=== PATIENT | female | born 1930 | race Caucasian/White ===

== ENCOUNTER 2017-02-24 12:59 | Emergency (ER) | payer OTHER ==
[~2017-02-24] VITALS: Ht 152.4 cm; Wt 52.0 kg
[~2017-02-24 12:59] MED LIST: ALPR0.25 PO; ATEN-102 PO; CENTCHW3 PO; GABA300C3 PO; HYDR25TA35 PO; OMEP20TA PO; VITA-13 PO
[2017-02-24 13:18] VITALS: BP 172/99; PULSE 65; RESP 16; TEMP 97.5; O2SAT 98
[2017-02-24] MEDS ORDERED: BIOT1000 PO (13:43)
[2017-02-24] MEDS ORDERED: ATEN50TA PO (13:43)
[2017-02-24] MEDS ORDERED: KRIL1000 PO (13:43)
[2017-02-24] MEDS ORDERED: HYDR-3801 PO (13:43)
[2017-02-24] MEDS ORDERED: CENTCHW3 (13:43)
[2017-02-24] MEDS ORDERED: UNIS25TA3 (13:43)
[2017-02-24] MEDS ORDERED: GABA300C5 PO (13:43)
[2017-02-24] MEDS ORDERED: ERGO2000 PO (13:43)
[2017-02-24] MEDS ORDERED: HYDR-3516 PO (13:43)
[2017-02-24] MEDS ORDERED: OMEP20TA PO (13:43)
[2017-02-24] MEDS ORDERED: ALPR0.25 PO (13:43)
--- NOTE | 2017-02-24 13:56 | PD ---
HPI Chief Complaint: Abdominal Pain Time Seen by Provider: 13:47 Travel History International Travel<30 days: No Contact w/Intl Traveler<30days: No Traveled to known affect area: No History of Present Illness HPI This is an 86-year-old female who presents to the emergency department with abdominal pain that's been present for a week and a half, constant, moderate severity affecting her lower abdomen. She says she's been constipated but she used an enema this morning and I gave her some relief. She feels nauseous but hasn't thrown up. She denies any fevers or chills. She denies any abdominal surgeries in the past. PFSH Past Medical History Anxiety: Yes Diminished Hearing: No GERD: Yes Hypertension: Yes ?: Not Past Surgical History Joint Replacement: Yes (bilateral hips) Social History Alcohol Use: Yes (wine nightly) Tobacco Use: No Substance Use: No Allergies-Medications (Allergen,Severity, Reaction): Coded Allergies: Nifedipine (Unverified Allergy, Severe, Swelling, 02/24/17) Reported Meds & Prescriptions Reported Meds & Active Scripts Active Ranitidine (Ranitidine HCl) 150 Mg Tab 150 Mg PO BID Reported Unisom Sleep Aid (Doxylamine Succinate) 25 Mg Tablet Centrum Silver (Multiple Vitamins W/ Minerals) 1 Chw Chw Vitamin D2 (Ergocalciferol) 2,000 Unit Tab 2,000 Units PO DAILY Biotin 1,000 Mcg Tab 1,000 Mg PO DAILY Krill Oil 1,000 Mg Cap 1,000 Mg PO DAILY Omeprazole 20 Mg Tab 20 Mg PO DAILY Gabapentin 300 Mg Cap 300 Mg PO HS Atenolol 50 Mg Tab 50 Mg PO DAILY Hydralazine (Hydralazine HCl) 100 Mg Tab 50 Mg PO TID Take with meals Alprazolam 0.25 Mg Tab 0.25 Mg PO BID Hydrocodone-Acetaminophen 5-325 mg Tab 1 Tab PO BID Review of Systems Except as stated in HPI: all other systems reviewed are Neg Physical Exam Narrative GENERAL:Well appearing, no acute distress SKIN: Focused skin assessment warm and dry. HEAD: Atraumatic. Normocephalic. EYES: Pupils equal and round. No injection or drainage. ENT: Moist mucous membranes NECK: Trachea midline. CARDIOVASCULAR: Regular rate and rhythm. No murmur appreciated. RESPIRATORY: Clear to auscultation. Breath sounds equal bilaterally. GASTROINTESTINAL: Abdomen soft, tender to palpation in the left lower quadrant with no rebound/guarding MUSCULOSKELETAL: No obvious deformities. NEUROLOGICAL: Awake and alert. No obvious cranial nerve deficits. Moving all extremities. PSYCHIATRIC: Appropriate mood and affect; insight and judgment normal. Data Data Last Documented VS Vital Signs Date Time Temp Pulse Resp B/P Pulse Ox O2 Delivery O2 Flow Rate FiO2 02/24/17 14:18 98 Room Air 02/24/17 13:18 97.5 65 16 172/99 Orders Complete Blood Count With Diff (02/24/17 13:52) Comprehensive Metabolic Panel (02/24/17 13:52) Lipase (02/24/17 13:52) Lactic Acid (02/24/17 13:52) Urinalysis - C+S If Indicated (02/24/17 13:52) Ct Abd/Pel W Iv Contrast(Rout) (02/24/17 13:52) Iv Access Insert/Monitor (02/24/17 13:52) Ecg Monitoring (02/24/17 13:52) Oximetry (02/24/17 13:52) Sodium Chloride 0.9% Flush (Ns Flush) (02/24/17 14:00) Iohexol 350 Inj (Omnipaque 350 Inj) (02/24/17 15:23) Labs Laboratory Tests Test 02/24/17 14:15 White Blood Count 9.3 TH/MM3 Red Blood Count 4.49 MIL/MM3 Hemoglobin 13.7 GM/DL Hematocrit 41.4 % Mean Corpuscular Volume 92.2 FL Mean Corpuscular Hemoglobin 30.4 PG Mean Corpuscular Hemoglobin 33.0 % Concent Red Cell Distribution Width 12.5 % Platelet Count 352 TH/MM3 Mean Platelet Volume 7.5 FL Neutrophils (%) (Auto) 82.2 % Lymphocytes (%) (Auto) 12.9 % Monocytes (%) (Auto) 3.3 % Eosinophils (%) (Auto) 0.6 % Basophils (%) (Auto) 1.0 % Neutrophils # (Auto) 7.6 TH/MM3 Lymphocytes # (Auto) 1.2 TH/MM3 Monocytes # (Auto) 0.3 TH/MM3 Eosinophils # (Auto) 0.1 TH/MM3 Basophils # (Auto) 0.1 TH/MM3 CBC Comment DIFF FINAL Differential Comment Urine Collection Type CATH Urine Color YELLOW Urine Turbidity CLEAR Urine pH 6.5 Urine Specific [place] 1.017 Urine Protein TRACE mg/dL Urine Glucose (UA) NEG mg/dL Urine Ketones TRACE mg/dL Urine Occult Blood NEG Urine Nitrite NEG Urine Bilirubin NEG Urine Leukocyte Esterase NEG Urine RBC 0-3 /hpf Urine WBC 0-2 /hpf Urine Amorphous Sediment FEW Urine Hyaline Casts 10-14 /lpf Microscopic Urinalysis Comment CATH-CULT NOT IND Urine Collection Time 14:15 Sodium Level 136 MEQ/L Potassium Level 3.8 MEQ/L Chloride Level 100 MEQ/L Carbon Dioxide Level 24.3 MEQ/L Anion Gap 12 MEQ/L Blood Urea Nitrogen 13 MG/DL Creatinine 0.92 MG/DL Estimat Glomerular Filtration 58 ML/MIN Rate Random Glucose 110 MG/DL Lactic Acid Level 1.1 mmol/L Calcium Level 10.4 MG/DL Total Bilirubin 0.5 MG/DL Aspartate Amino Transf 22 U/L (AST/SGOT) Alanine Aminotransferase 21 U/L (ALT/SGPT) Alkaline Phosphatase 70 U/L Total Protein 6.9 GM/DL Albumin 3.7 GM/DL Lipase 135 U/L [facility] Medical Decision Making Medical Screen Exam Complete: Yes Emergency Medical Condition: Yes Interpretation(s) Afebrile, no tachycardia, hypertensive No leukocytosis Electrolytes are reassuring Lactic acid is 1.1 Lipase is 135 Urinalysis is negative for infection Last 24 hours Impressions Abdomen/Pelvis CT 02/24/17 1352 Signed Impressions: Service Date/Time: , February 24, 2017 15:06 - CONCLUSION: 1. No evidence of acute process 2. Bilateral simple renal cysts 3. Bilateral hip replacements 4. Degenerative changes of the lumbar spine. Hector Roman MD Differential Diagnosis Diverticulitis, colitis, urinary tract infection, peptic ulcer disease, pancreatitis, cholelithiasis, cholecystitis, mesenteric ischemia Narrative Course This is an 86-year-old female who presents to the emergency department with abdominal discomfort that's been going on for a week and a half. She is tender mostly in the mid abdomen and lower abdomen. Labs were obtained which were reassuring, urinalysis is negative for infection, and CT abdomen and pelvis is negative for acute surgical process. I suspect the patient's symptoms may be related to constipation. She seems to of gotten some relief after an enema this morning. I advised that she continue to take MiraLAX. Also possible that she has peptic ulcer disease. She'll be started on Zantac. 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 If she develops worsening symptoms like vomiting or fever she should return to the emergency department. Diagnosis Primary Impression: Abdominal pain Qualified Code: R10.9 - Abdominal pain, unspecified location Referrals: Mariza Bender MD Patient Instructions: General Instructions Additional Instructions: If you develop severe or worsening abdominal pain, fever>100.4, persistent vomiting or inability to eat or drink return to the emergency department immediately. Follow up with your primary care physician in 1-2 days for a check-up. Med/Other Pt SpecificInfo: Prescription(s) given Scripts Polyethylene Glycol 3350 Powder (Miralax Powder)17 Gm Powd17 Gm PO DAILY #1 CAN Ref 0 Mix and dissolve one measuring cap-ful (17 grams) in water or juice. Prov:Tatianna Guerrero MD 02/24/17 Ranitidine 150 Mg Ocd616 Mg PO BID #60 TAB Ref 0 Prov:Tatianna Guerrero MD 02/24/17 Disposition: 01 DISCHARGE HOME Condition: Stable Tatianna Guerrero MD Feb 24, 2017 13:56
[2017-02-24] MEDS ORDERED: SODIUM CHLORIDE 0.9% FLUSH 10 ML FLUSH IV FLUSH PRN (14:00)
[2017-02-24 14:18] VITALS: O2SAT 98
[2017-02-24 14:23] LABS: BLOOD, URINE NEG (NEG); GLUCOSE,URINE NEG (NEG); KETONE, URINE TRACE mg/dL (NEG); NITRITE,URINE NEG (NEG); PH, URINE 6.5 (5.0-8.5)
[2017-02-24 14:27] LABS: AUTOMATED NEUTROPHIL # 7.6 TH/MM3 (1.8-7.7); BASOPHIL # 0.1 TH/MM3 (0-0.2); EOSINOPHIL # 0.1 TH/MM3 (0-0.4); EOSINOPHIL % 0.6 % (0.0-4.0); HEMATOCRIT 41.4 % (35.0-46.0); HEMO FLAGS DIFF FINAL; LYMPH % 12.9 % (9.0-44.0); LYMPHOCYTE # 1.2 TH/MM3 (1.0-4.8); MEAN CELL VOLUME 92.2 FL (80.0-100.0); MEAN CORPUSCULAR HEMOGLOBIN 30.4 PG (27.0-34.0); MONO % 3.3 % (0.0-8.0); NEUT % 82.2 % (16.0-70.0); PLATELET COUNT 352 TH/MM3 (150-450); RED BLOOD COUNT 4.49 MIL/MM3 (4.00-5.30); RED CELL DISTRIBUTION WIDTH 12.5 % (11.6-17.2); WHITE BLOOD COUNT 9.3 TH/MM3 (4.0-11.0)
[2017-02-24 14:34] LABS: METHOD OF COLLECTION CATH; URINE COLOR YELLOW (YELLW/STRAW)
[2017-02-24 14:35] LABS: COMMENT (UR) CATH-CULT NOT IND; CULTURE IF INDICATED CATH CULTURE NOT IND; RBC, URINE 0-3 /hpf (0-3); WBC, URINE 0-2 /hpf (0-5)
[2017-02-24 14:41] LABS: CHLORIDE 100 MEQ/L (98-107); POTASSIUM 3.8 MEQ/L (3.5-5.1); SODIUM (NA) 136 MEQ/L (136-145)
[2017-02-24 14:45] LABS: ANION GAP 12 MEQ/L (5-15); BICARBONATE 24.3 MEQ/L (21.0-32.0); BLOOD UREA NITROGEN 13 MG/DL (7-18)
[2017-02-24 14:48] LABS: ALT (GPT) 21 U/L (10-53); AST (GOT) 22 U/L (15-37); GLOMERULAR FILTRATION RATE 58 ML/MIN (>89)
[2017-02-24 14:49] LABS: TOTAL BILIRUBIN ADULT 0.5 MG/DL (0.2-1.0)
[2017-02-24 14:51] LABS: ALKALINE PHOSPHATASE 70 U/L (45-117)
[2017-02-24] MEDS ORDERED: IOHEXOL 350 MG/ML 10 ML VIAL (for RAD DIAG) IV ONE (15:23)
--- NOTE | 2017-02-24 15:37 | RADRPT ---
EXAM DATE/TIME: 02/24/2017 15:06 [facility] COMPARISON: No previous studies available for comparison. INDICATIONS : Lower abdominal pain for 2 weeks IV CONTRAST: 94 cc Omnipaque 350 (iohexol) IV ORAL CONTRAST: No oral contrast ingested. RADIATION DOSE: 6.28 CTDIvol (mGy) MEDICAL HISTORY : Hypertension. Gastroesophageal reflux disease. SURGICAL HISTORY : None. ENCOUNTER: Initial ACUITY: 3 weeks PAIN SCALE: 10/10 LOCATION: lower quadrant abdomen TECHNIQUE: Volumetric scanning of the abdomen and pelvis was performed. Using automated exposure control and ad justment of the mA and/or kV according to patient size, radiation dose was kept as low as reasonably achievable to obtain optimal diagnostic quality images. DICOM format image data is available electro nically for review and comparison. FINDINGS: LOWER LUNGS: The visualized lower lungs are clear. LIVER: Homogeneous density without lesion. There is no dilation of the biliary tree. No calcified gallston es. SPLEEN: Normal size without lesion. PANCREAS: Within normal limits. KIDNEYS: Bilateral simple renal cysts are identified. Normal in size and shape. There is no mass, stone or hy dronephrosis. ADRENAL GLANDS: Within normal limits. VASCULAR: There is no aortic aneurysm. BOWEL/MESENTERY: The stomach, small bowel, and colon demonstrate no acute abnormality. There is no free intraperitone al air or fluid. ABDOMINAL WALL: Within normal limits. RETROPERITONEUM: There is no lymphadenopathy. BLADDER: No wall thickening or mass. REPRODUCTIVE: Within normal limits. INGUINAL: There is no lymphadenopathy or hernia. MUSCULOSKELETAL: Bilateral hip replacements. CONCLUSION: 1. No evidence of acute process 2. Bilateral simple renal cysts 3. Bilateral hip replacements 4. Degenerative changes of the lumbar spine. Hector Roman MD on February 24, 2017 at 15:29 Board Certified Radiologist. This report was verified electronically.
[2017-02-24] MEDS ORDERED: RANI150T PO (15:54)
[2017-02-24] MEDS ORDERED: MIRA3350 PO (15:59)
== END 2017-02-24 16:20 | disposition home or self-care (01) ==
LOC: PHED 12:59
DX: R10.9 Unspecified abdominal pain (principal); K21.9 Gastro-esophageal reflux disease without esophagitis; I10 Essential (primary) hypertension
CPT/HCPCS: 74177; 80053; 81001; 83605; 83690; 85025; 99285; Q9967

== ENCOUNTER 2017-03-25 09:41 | Emergency (ER) | payer OTHER ==
[~2017-03-25 09:41] MED LIST changes: -ATEN-102 PO; +ATEN50TA PO; +BIOT1000 PO; +CENTCHW3; -CENTCHW3 PO; +ERGO2000 PO; -GABA300C3 PO; +GABA300C5 PO; +HYDR-3516 PO; +HYDR-3801 PO; -HYDR25TA35 PO; +KRIL1000 PO; +MIRA3350 PO; +RANI150T PO; +UNIS25TA3; -VITA-13 PO
[2017-03-25 09:50] VITALS: BP 130/74; PULSE 61; RESP 20; TEMP 97.6; O2SAT 97
[2017-03-25] MEDS ORDERED: SODIUM CHLOR 0.9% 1000 ML INJ 1,000 ML IV SCH (10:02)
[2017-03-25] MEDS ORDERED: DIATRIZOATE MEGLUM/DIATRIZOATE SOD 9 ML CUP ONE (10:07)
--- NOTE | 2017-03-25 10:10 | PD ---
HPI Chief Complaint: GI Complaint Time Seen by Provider: 09:55 Travel History International Travel<30 days: No Contact w/Intl Traveler<30days: No Traveled to known affect area: No History of Present Illness HPI 86-year-old female here with complaint of abdominal pain. For the last 2 days patient has had primarily periumbilical abdominal pain. She describes this as crampy. It radiates slightly into the epigastrium. She notes associated nausea , vomiting. States she has not been able to keep anything down for the last 2 days, vomiting almost immediately after oral intake. Notes associated worsening. Periumbilical abdominal pain a proximal eye 30 minutes after eating. Patient denies any history of GERD, pancreatitis or hepatobiliary pathology. However she does take an oral antacid and has been on this for some times. Patient notes associated constipation, believes that this is due to poor oral intake. Is concerned she may be dehydrated. Patient was seen here approximately one month ago with similar symptoms and states that this is a similar pain. At that time she had laboratory workup and CT of the abdomen and pelvis that was unremarkable. She does note a slight amount of dysuria. PFSH Past Medical History Anxiety: Yes Diminished Hearing: No GERD: Yes Hypertension: Yes Past Surgical History Joint Replacement: Yes (bilateral hips) Social History Alcohol Use: Yes (wine nightly) Tobacco Use: No Substance Use: No Allergies-Medications (Allergen,Severity, Reaction): Coded Allergies: Nifedipine (Unverified Allergy, Severe, Swelling, 03/25/17) Reported Meds & Prescriptions Reported Meds & Active Scripts Active Ranitidine (Ranitidine HCl) 150 Mg Tab 150 Mg PO BID Reported Unisom Sleep Aid (Doxylamine Succinate) 25 Mg Tablet Centrum Silver (Multiple Vitamins W/ Minerals) 1 Chw Chw Vitamin D2 (Ergocalciferol) 2,000 Unit Tab 2,000 Units PO DAILY Biotin 1,000 Mcg Tab 1,000 Mg PO DAILY Krill Oil 1,000 Mg Cap 1,000 Mg PO DAILY Omeprazole 20 Mg Tab 20 Mg PO DAILY Gabapentin 300 Mg Cap 300 Mg PO HS Atenolol 50 Mg Tab 50 Mg PO DAILY Hydralazine (Hydralazine HCl) 100 Mg Tab 50 Mg PO BID Take with meals Alprazolam 0.25 Mg Tab 0.25 Mg PO DAILY Hydrocodone-Acetaminophen 5-325 mg Tab 1 Tab PO BID Review of Systems Except as stated in HPI: all other systems reviewed are Neg Physical Exam Narrative GENERAL: Nauseous appearing elderly female in no acute distress SKIN: Focused skin assessment warm/dry. HEAD: Normocephalic. EYES: No scleral icterus. No injection or drainage. ENT: Mucous membranes pink and moist. NECK: Supple CARDIOVASCULAR: Regular rate and rhythm. No murmur appreciated. RESPIRATORY: No accessory muscle use. Clear to auscultation. Breath sounds equal bilaterally. GASTROINTESTINAL: Abdomen soft, periumbilical and mild epigastric abdominal tenderness to palpation without rebound or guarding. No hepatosplenomegaly. No CVA tenderness. MUSCULOSKELETAL: Normal gait NEUROLOGICAL: Awake and alert. Normal speech. PSYCHIATRIC: Appropriate mood and affect; insight and judgment normal. Data Data Last Documented VS Vital Signs Date Time Temp Pulse Resp B/P Pulse Ox O2 Delivery O2 Flow Rate FiO2 03/25/17 10:24 98 Room Air 03/25/17 09:50 97.6 61 20 130/74 Orders Complete Blood Count With Diff (03/25/17 10:02) Comprehensive Metabolic Panel (03/25/17 10:02) Lipase (03/25/17 10:02) Urinalysis - C+S If Indicated (03/25/17 10:02) Ct Abd/Pel W Iv Contrast(Rout) (03/25/17 10:02) Iv Access Insert/Monitor (03/25/17 10:02) Ecg Monitoring (03/25/17 10:02) Oximetry (03/25/17 10:02) Morphine Inj (Morphine Inj) (03/25/17 10:15) Ondansetron Inj (Zofran Inj) (03/25/17 10:15) Sodium Chlor 0.9% 1000 Ml Inj (Ns 1000 M (03/25/17 10:02) Sodium Chloride 0.9% Flush (Ns Flush) (03/25/17 10:15) Diatrizoate Liq ( Gastroview Liq) (03/25/17 10:07) Oral Contrast - Adult (03/25/17 10:12) Iohexol 350 Inj (Omnipaque 350 Inj) (03/25/17 12:09) Potassium Chloride (Kcl) (03/25/17 12:30) Labs Laboratory Tests Test 03/25/17 03/25/17 10:12 11:26 White Blood Count 6.6 TH/MM3 Red Blood Count 4.68 MIL/MM3 Hemoglobin 14.2 GM/DL Hematocrit 42.6 % Mean Corpuscular Volume 91.1 FL Mean Corpuscular Hemoglobin 30.3 PG Mean Corpuscular Hemoglobin 33.2 % Concent Red Cell Distribution Width 12.2 % Platelet Count 321 TH/MM3 Mean Platelet Volume 7.5 FL Neutrophils (%) (Auto) 69.3 % Lymphocytes (%) (Auto) 21.4 % Monocytes (%) (Auto) 8.0 % Eosinophils (%) (Auto) 0.9 % Basophils (%) (Auto) 0.4 % Neutrophils # (Auto) 4.6 TH/MM3 Lymphocytes # (Auto) 1.4 TH/MM3 Monocytes # (Auto) 0.5 TH/MM3 Eosinophils # (Auto) 0.1 TH/MM3 Basophils # (Auto) 0.0 TH/MM3 CBC Comment DIFF FINAL Differential Comment Sodium Level 134 MEQ/L Potassium Level 3.3 MEQ/L Chloride Level 97 MEQ/L Carbon Dioxide Level 28.2 MEQ/L Anion Gap 9 MEQ/L Blood Urea Nitrogen 10 MG/DL Creatinine 0.82 MG/DL Estimat Glomerular Filtration 66 ML/MIN Rate Random Glucose 96 MG/DL Calcium Level 10.2 MG/DL Total Bilirubin 0.6 MG/DL Aspartate Amino Transf 20 U/L (AST/SGOT) Alanine Aminotransferase 21 U/L (ALT/SGPT) Alkaline Phosphatase 79 U/L Total Protein 7.4 GM/DL Albumin 4.0 GM/DL Lipase 107 U/L Urine Collection Type CLEAN CATCH Urine Color YELLOW Urine Turbidity CLEAR Urine pH 6.5 Urine Specific House 1.006 Urine Protein TRACE mg/dL Urine Glucose (UA) NEG mg/dL Urine Ketones NEG mg/dL Urine Occult Blood NEG Urine Nitrite NEG Urine Bilirubin NEG Urine Leukocyte Esterase NEG Urine WBC 0-2 /hpf Urine Squamous Epithelial 0-5 /hpf Cells Microscopic Urinalysis Comment CULT NOT INDICATED Urine Collection Time 11:26 [facility] Medical Decision Making Medical Screen Exam Complete: Yes Emergency Medical Condition: Yes Medical Record Reviewed: Yes Differential Diagnosis 86-year-old female here with 2 days. Periumbilical and epigastric abdominal pain associated nausea and vomiting. Differential includes gastritis, pancreatitis, hepatobiliary pathology, peptic ulcer disease, bowel obstruction, UTI. Her abdominal examination is benign making peritoneal pathology less likely though on the differential. Narrative Course Patient placed on monitor, IV established and blood obtained. Patient given 1 L normal saline bolus, 4 mg morphine, 4 mg Zofran. CBC, CMP, lipase and urinalysis obtained and notable only for potassium 3.3, replaced orally. When she was imaged one month ago she did not have any oral contrast. Therefore CT abdomen and pelvis with both IV and oral contrast was obtained and showed stable chronic changes, nothing acute. Tolerated oral challenge and will be discharged home. Diagnosis Primary Impression: Epigastric abdominal pain Additional Impression: Nausea and vomiting Qualified Code: R11.2 - Non-intractable vomiting with nausea, unspecified vomiting type Referrals: Primary Care Physician as needed Additional Instructions: Increase omeprazole from 20-40 mg daily. Zofran as needed for nausea and vomiting. Med/Other Pt SpecificInfo: Prescription(s) given, Existing Med Changed Scripts Ondansetron Odt (Zofran Odt)8 Mg Tab8 Mg SL Q8H PRN (NAUSEA OR VOMITING) #10 TAB Ref 0 Prov:Ashlie Barrera MD 03/25/17 Omeprazole 40 Mg Cap40 Mg PO DAILY #30 CAP Ref 0 Prov:Ashlie Barrera MD 03/25/17 Disposition: 01 DISCHARGE HOME Condition: Stable Ashlie Barrera MD Mar 25, 2017 10:10
[2017-03-25] MEDS ORDERED: MORPHINE SULFATE 4 MG/ML INJ IV PUSH ONE (10:15)
[2017-03-25] MEDS ORDERED: SODIUM CHLORIDE 0.9% FLUSH 10 ML FLUSH IV FLUSH PRN (10:15)
[2017-03-25] MEDS ORDERED: ONDANSETRON HCL 4 MG/2 ML VIAL IVP ONE (10:15)
[2017-03-25 10:24] VITALS: O2SAT 98
[2017-03-25 10:29] LABS: AUTOMATED NEUTROPHIL # 4.6 TH/MM3 (1.8-7.7); BASOPHIL % 0.4 % (0.0-2.0); EOSINOPHIL # 0.1 TH/MM3 (0-0.4); EOSINOPHIL % 0.9 % (0.0-4.0); HEMATOCRIT 42.6 % (35.0-46.0); HEMO FLAGS DIFF FINAL; LYMPH % 21.4 % (9.0-44.0); LYMPHOCYTE # 1.4 TH/MM3 (1.0-4.8); MEAN CELL VOLUME 91.1 FL (80.0-100.0); MEAN CORPUSCULAR HEMOGLOBIN 30.3 PG (27.0-34.0); MEAN CORPUSCULAR HGB CONC 33.2 % (32.0-36.0); NEUT % 69.3 % (16.0-70.0); PLATELET COUNT 321 TH/MM3 (150-450); RED BLOOD COUNT 4.68 MIL/MM3 (4.00-5.30); RED CELL DISTRIBUTION WIDTH 12.2 % (11.6-17.2); WHITE BLOOD COUNT 6.6 TH/MM3 (4.0-11.0)
[2017-03-25 10:39] LABS: CHLORIDE 97 MEQ/L (98-107); POTASSIUM 3.3 MEQ/L (3.5-5.1); SODIUM (NA) 134 MEQ/L (136-145)
[2017-03-25 10:43] LABS: ANION GAP 9 MEQ/L (5-15); BICARBONATE 28.2 MEQ/L (21.0-32.0); BLOOD UREA NITROGEN 10 MG/DL (7-18)
[2017-03-25 10:46] LABS: ALT (GPT) 21 U/L (10-53); AST (GOT) 20 U/L (15-37); GLOMERULAR FILTRATION RATE 66 ML/MIN (>89)
[2017-03-25 10:47] LABS: TOTAL BILIRUBIN ADULT 0.6 MG/DL (0.2-1.0)
[2017-03-25 10:48] LABS: ALKALINE PHOSPHATASE 79 U/L (45-117)
[2017-03-25 11:35] LABS: BLOOD, URINE NEG (NEG); GLUCOSE,URINE NEG (NEG); KETONE, URINE NEG (NEG); NITRITE,URINE NEG (NEG); PH, URINE 6.5 (5.0-8.5)
[2017-03-25 12:05] LABS: COMMENT (UR) CULT NOT INDICATED; CULTURE IF INDICATED CULT NOT INDICATED; METHOD OF COLLECTION CLEAN CATCH; SQUAMOUS EPITHELIAL CELL URINE 0-5 /hpf (0-5); URINE COLOR YELLOW (YELLW/STRAW); WBC, URINE 0-2 /hpf (0-5)
[2017-03-25] MEDS ORDERED: IOHEXOL 350 MG/ML 10 ML VIAL (for RAD DIAG) IV ONE (12:09)
--- NOTE | 2017-03-25 12:20 | RADRPT ---
EXAM DATE/TIME: 03/25/2017 11:52 [facility] COMPARISON: CT ABDOMEN & PELVIS W CONTRAST, February 24, 2017, 15:06. INDICATIONS : Periumbilical pain, nausea and vomiting x 3 days. IV CONTRAST: 85 cc Omnipaque 350 (iohexol) IV ORAL CONTRAST: Partial prescribed oral contrast ingested. RADIATION DOSE: 8.06 CTDIvol (mGy) MEDICAL HISTORY : Gastroesophageal reflux disease. Hypertension. SURGICAL HISTORY : Bilateral hip replacement. Pain pump. ENCOUNTER: Initial ACUITY: 3 days PAIN SCALE: 10/10 LOCATION: Periumbilical TECHNIQUE: Volumetric scanning of the abdomen and pelvis was performed. Using automated exposure control and ad justment of the mA and/or kV according to patient size, radiation dose was kept as low as reasonably achievable to obtain optimal diagnostic quality images. DICOM format image data is available electro nically for review and comparison. FINDINGS: CT Abdomen: The liver, spleen, pancreas, adrenals are unremarkable. There is no evidence for any appr eciable pathological adenopathy, free fluid, or bowel obstruction. There are simple cysts in the kidn eys the largest on the left measures 2.1 cm in size and not changed. Chronic vascular calcifications are present involving the aorta, iliac arteries without any significant stenosis or aneurysmal dilata tions for technique. CT pelvis: There is no evidence for mass, abscess formation, or any significant adenopathy within the pelvis. Lumbar scoliosis and degenerative changes of the spine and bilateral total hip arthroplastie s have not changed. CONCLUSION: Stable chronic and benign changes not changed. Billie Bains MD on March 25, 2017 at 12:15 Board Certified Radiologist. This report was verified electronically.
[2017-03-25] MEDS ORDERED: POTASSIUM CHLORIDE 20 MEQ CONTROLLED RELEASE TAB PO ONE (12:30)
[2017-03-25] MEDS ORDERED: OMEP40CA2 PO (13:14)
[2017-03-25] MEDS ORDERED: ZOFR8TAB4 SL (13:15)
[2017-03-25 13:30] VITALS: BP 210/88
== END 2017-03-25 13:38 | disposition home or self-care (01) ==
LOC: PHED 09:41
DX: R10.13 Epigastric pain (principal); R11.2 Nausea with vomiting, unspecified; R10.33 Periumbilical pain; K59.00 Constipation, unspecified; R30.0 Dysuria; I10 Essential (primary) hypertension; Z86.59 Personal history of other mental and behavioral disorders; Z87.19 Personal history of other diseases of the digestive system
CPT/HCPCS: 74177; 80053; 81001; 83690; 85025; 96361; 96374; 96375; 99285; J2270; J2405; J7030; Q9963; Q9967

== ENCOUNTER 2017-05-04 10:12 | Emergency (ER) | payer OTHER ==
[~2017-05-04] VITALS: Ht 152.4 cm; Wt 52.0 kg
[~2017-05-04 10:12] MED LIST changes: -MIRA3350 PO; +OMEP40CA2 PO; +ZOFR8TAB4 SL
[2017-05-04 10:18] VITALS: BP 116/62; PULSE 65; RESP 16; TEMP 97.9; O2SAT 97
--- NOTE | 2017-05-04 14:46 | PD ---
HPI Chief Complaint: Fall Time Seen by Provider: 10:30 Travel History International Travel<30 days: No Contact w/Intl Traveler<30days: No Traveled to known affect area: No History of Present Illness HPI This is an 86-year-old male who female who has a history of chronic low back pain and has a spinal stimulator who presents to the emergency department having had a fall 5 days ago reporting low back pain, constant, severe, worse with walking, improved with rest. She denies any numbness or weakness but she says she's having difficulty with urinary incontinence and she says she doesn't make it to the bathroom that she wets herself. She also feels like she can't have a bowel movement but that's mostly secondary to pain. She did not hit her head and denies any other injuries. [facility] Past Medical History Anxiety: Yes Diminished Hearing: No GERD: Yes Hypertension: Yes Past Surgical History Joint Replacement: Yes (bilateral hips) Social History Alcohol Use: Yes (wine nightly) Tobacco Use: No Substance Use: No Allergies-Medications (Allergen,Severity, Reaction): Coded Allergies: nifedipine (Unverified Allergy, Severe, Swelling, 05/04/17) Reported Meds & Prescriptions Reported Meds & Active Scripts Active Ranitidine (Ranitidine HCl) 150 Mg Tab 150 Mg PO BID Reported Centrum Silver (Multiple Vitamins W/ Minerals) 1 Chw Chw Vitamin D2 (Ergocalciferol) 2,000 Unit Tab 2,000 Units PO DAILY Biotin 1,000 Mcg Tab 1,000 Mg PO DAILY Krill Oil 1,000 Mg Cap 1,000 Mg PO DAILY Review of Systems Except as stated in HPI: all other systems reviewed are Neg Physical Exam Narrative GENERAL:Well appearing, no acute distress SKIN: Focused skin assessment warm and dry. HEAD: Atraumatic. Normocephalic. EYES: Pupils equal and round. No injection or drainage. ENT: Moist mucous membranes NECK: Trachea midline. CARDIOVASCULAR: Regular rate and rhythm. No murmur appreciated. RESPIRATORY: Clear to auscultation. Breath sounds equal bilaterally. GASTROINTESTINAL: Abdomen soft, non-tender, nondistended. Normal rectal tone. MUSCULOSKELETAL: Focally tender to palpation over the lower lumbar spine. NEUROLOGICAL: Awake and alert. No obvious cranial nerve deficits. 5 out of 5 strength in the bilateral lower extremities. PSYCHIATRIC: Appropriate mood and affect; insight and judgment normal. Data Data Last Documented VS Vital Signs Date Time Temp Pulse Resp B/P (MAP) Pulse Ox O2 Delivery O2 Flow Rate FiO2 05/04/17 10:18 97.9 65 16 116/62 (80) 97 Orders Orders Mri L Spine W/O Contrast (05/04/17 ) MDM Medical Decision Making Medical Screen Exam Complete: Yes Emergency Medical Condition: Yes Interpretation(s) Afebrile, no tachycardia, normotensive MRI: Spinal stenosis with neural impingement at L1-L2 and L3-L4 Differential Diagnosis Compression fracture, cauda equina syndrome, contusion Narrative Course This is a 86-year-old female who presents to the emergency department having had a mechanical fall almost a week ago. She has severe low back pain. MRI demonstrates spinal stenosis and a T11 compression fracture with 50% height loss. Rectal tone is normal so I doubt cauda equina syndrome. I recommended a TLSO brace but the patient adamantly refused. She's had them before and she says there are a nuisance. She is interested in kyphoplasty. I gave her a neurosurgical referral. I think patient is safe for discharge. Diagnosis Primary Impression: Compression fracture of body of thoracic vertebra Referrals: Dean Fernandez MD Patient Instructions: General Instructions Additional Instructions: If you develop weakness of your legs, difficulty walking, numbness of your legs or your genital or rectal area, loss of your bowel or bladder, or difficulty urinating return to the emergency department immediately. Follow-up with an orthopedic surgeon or neurosurgeon regarding the possibility of kyphoplasty. Med/Other Pt SpecificInfo: Prescription(s) given Scripts Hydrocodone-Acetaminophen (Lortab) 5-325 Mg Tab 1 TAB PO Q6H Y for PAIN, #15 TAB 0 Refills Prov: Tatianna uGerrero MD 05/04/17 Disposition: 01 DISCHARGE HOME Condition: Stable Tatianna Guerrero MD May 04, 2017 14:46
--- NOTE | 2017-05-04 15:18 | RADRPT ---
EXAM DATE/TIME: 05/04/2017 13:25 [facility] COMPARISON: No previous studies available for comparison. INDICATIONS : Pain. Pt fell landing on left side near hip. MEDICAL HISTORY : None. SURGICAL HISTORY : Fusion, lumbar. Spinal stimulator. Bilat hip replacements. ENCOUNTER: Initial ACUITY: 2 day PAIN SCORE: 4/10 LOCATION: back TECHNIQUE: Multiplanar multisequence MRI of the lumbar spine was performed without contrast. FINDINGS: The most caudal appearing lumbar vertebra is numbered as L5. There is a 50% compression deformity of the T11 vertebral body with associated T2 prolongation in the marrow of the compression deformity. No significant abnormality in the pedicles. There is mild flattening of the ventral margin of the th ecal sac at this level but no displaced fragments. The conus is at the level of T12-L1. Moderate cu rvature of the mid lumbar spine convex towards the right. Multilevel spinal stenosis L1-L3 described at each level below. T12-L1: The thecal sac has a normal diameter. No evidence of disc bulge or protrusion. The neural foramina are patent bilaterally. L1-L2: Mild spinal stenosis due to posterior osteophytes which are located right paracentral and left parace ntral. There is associated bulging of the disc which extends in the neural foramen bilaterally with loss of fat about the nerve root in the neural foramen both sides. The AP dimension of the thecal sa c is narrowed down to 6 mm. L2-L3: Mild severity spinal stenosis due to broad-based osteophytes flattening the ventral margin of the the micha sac and causing narrowing of the bony neural foramina bilaterally. Fat is seen about the nerve i n the neural foramen both sides. AP dimension of the thecal sac is narrowed to 7 mm. L3-L4: Moderate severity spinal stenosis due to a combination of broad-based disc osteophyte complex and kadie ateral ligamentum flavum hypertrophy. There is also asymmetric hypertrophy of the facet joints on th e right side. There is narrowing of the bony neural foramina bilaterally and loss of fat about the n erve root in the neural foramen on the left side. L4-L5: The thecal sac has a normal diameter. No evidence of disc bulge or protrusion. The neural foramina are patent bilaterally. L5-S1: The thecal sac has a normal diameter. No evidence of disc bulge or protrusion. The neural foramina are patent bilaterally. CONCLUSION: 1. Multilevel spinal stenosis due to posterior endplate hypertrophy and facet joint hypertrophy L1-L4 with evidence of neural impingement bilaterally at L1-2 and on the left side at L3-4. 2. 50% compression deformity superior T. 11 vertebral body with signal abnormality suggests that this is acute or subacute. There is some expansion of the posterior vertebral body, but no retropulsed f ragment. Giovanni Mckenzie MD on May 04, 2017 at 15:10 Board Certified Radiologist. This report was verified electronically.
[2017-05-04] MEDS ORDERED: HYDR-3533 PO (15:39)
[2017-05-04] MEDS ORDERED: ACETAMINOPHEN/HYDROcodone 325 MG/5 MG TAB PO ONE (15:45)
[2017-06-06] MEDS ORDERED: OMEP20CA2 (14:51)
[2017-06-06] MEDS ORDERED: TIZA2TAB (14:51)
[2017-06-06] MEDS ORDERED: ALPR0.25 (14:51)
== END 2017-05-04 16:19 | disposition home or self-care (01) ==
LOC: PHEFT 10:12
DX: S22.089A Unspecified fracture of T11-T12 vertebra, initial encounter for closed fracture (principal); W19.XXXA Unspecified fall, initial encounter
CPT/HCPCS: 72148; 99285

== ENCOUNTER 2017-05-08 07:53 | Emergency (ER) | payer OTHER ==
[~2017-05-08] VITALS: Ht 152.4 cm; Wt 52.0 kg
[~2017-05-08 07:53] MED LIST changes: -ALPR0.25 PO; -ATEN50TA PO; -GABA300C5 PO; -HYDR-3516 PO; +HYDR-3533 PO; -HYDR-3801 PO; -OMEP20TA PO; -OMEP40CA2 PO; -UNIS25TA3; -ZOFR8TAB4 SL
[2017-05-08 07:59] VITALS: BP 142/97; PULSE 64; RESP 16; TEMP 98; O2SAT 96
[2017-05-08] MEDS ORDERED: PERC5TAB12 PO (08:24)
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
[2017-05-08] MEDS ORDERED: oxyCODONE/ACETAMINOPHEN 5 MG/325 MG TAB PO ONE (08:30)
[2017-06-06] MEDS ORDERED: TIZA2TAB (14:51)
[2017-06-06] MEDS ORDERED: OMEP20CA2 (14:51)
[2017-06-06] MEDS ORDERED: ALPR0.25 (14:51)
== END 2017-05-08 08:52 | disposition home or self-care (01) ==
LOC: PHED 07:53
DX: S22.089A Unspecified fracture of T11-T12 vertebra, initial encounter for closed fracture (principal); W19.XXXA Unspecified fall, initial encounter
CPT/HCPCS: 99283

== ENCOUNTER 2017-05-10 23:08 | Emergency (ER) | payer OTHER ==
[~2017-05-10] VITALS: Ht 152.4 cm; Wt 52.0 kg
[~2017-05-10 23:08] MED LIST changes: +PERC5TAB12 PO
[2017-05-10 23:09] VITALS: BP 237/119; PULSE 69; RESP 16; TEMP 97.8; O2SAT 96
[2017-05-11] MEDS ORDERED: SODIUM CHLOR 0.9% 250 ML INJ 250 ML IV ONE ×2 (00:15→02:00)
[2017-05-11] MEDS ORDERED: ONDANSETRON HCL 4 MG/2 ML VIAL IV ONE (00:15)
--- NOTE | 2017-05-11 00:51 | PD ---
HPI Chief Complaint: GI Complaint Time Seen by Provider: 23:59 Travel History International Travel<30 days: No Contact w/Intl Traveler<30days: No Traveled to known affect area: No History of Present Illness HPI The patient is an 86 year old female who presents to the [facility] emergency department with a history of abdominal pain with nausea and vomiting that began yesterday. She has had n/v x4 today. Her last BM was 4 days ago. She usually goes once per day, however a month ago she fell and developed a T11 compression fracture. She reports that since then she has been taking pain medication when necessary. The patient is currently on Percocet. The patient reports that she's had a diminished appetite. The patient reports that the pain was across the lower portion of the abdomen. The patient reports that the pain is resolved since her arriving in the emergency department. The patient reports that the sensation was a cramping sensation. She reports that she did try taking magnesium citrate and [id number] stool softeners without any relief earlier this evening. On review of systems otherwise she denies any recent fevers cough, congestion, neck pain, chest pain, shortness of breath, diarrhea, dysuria, urinary urgency, numbness or tingling to her extremities, weakness to her upper extremities or lower extremities. She has urinary frequency and incontinence that began two days ago. She denies having any bowel incontinence. PMD: Dr. Prieto. [facility] Past Medical History Narrative Medical The patient's past medical history is significant for T 11 compression fracture s/p fall, anxiety, GERD, hypertension, and chronic back pain with TENS unit in place. Anxiety: Yes Diminished Hearing: No GERD: Yes Hypertension: Yes Influenza Vaccination: Yes Past Surgical History Narrative Surgical The patient's past surgical history is significant for bilateral hip replacements, lumbar fusion. Joint Replacement: Yes (bilateral hips) Social History Alcohol Use: Yes (wine nightly) Tobacco Use: No Substance Use: No Allergies-Medications (Allergen,Severity, Reaction): Coded Allergies: nifedipine (Unverified Allergy, Severe, Swelling, 05/10/17) Reported Meds & Prescriptions Reported Meds & Active Scripts Active Miralax Powder (Polyethylene Glycol 3350 Powder) 17 Gm Powd 17 Gm PO DAILY Mix and dissolve one measuring cap-ful (17 grams) in water or juice. Zofran Odt (Ondansetron Odt) 4 Mg Tab 4 Mg SL Q6HR PRN Percocet (Oxycodone-Acetaminophen) 5-325 mg Tab 1-2 Tab PO Q4H PRN Ranitidine (Ranitidine HCl) 150 Mg Tab 150 Mg PO BID Reported Centrum Silver (Multiple Vitamins W/ Minerals) 1 Chw Chw Vitamin D2 (Ergocalciferol) 2,000 Unit Tab 2,000 Units PO DAILY Biotin 1,000 Mcg Tab 1,000 Mg PO DAILY Krill Oil 1,000 Mg Cap 1,000 Mg PO DAILY Review of Systems Except as stated in HPI: all other systems reviewed are Neg General / Constitutional: No: Fever Eyes: No: Visual changes HENT: No: Headaches Cardiovascular: No: Chest Pain or Discomfort Respiratory: No: Shortness of Breath Gastrointestinal: Positive: Nausea, Vomiting, Abdominal Pain, Constipation, Changes in Bowel Habits Genitourinary: No: Dysuria Musculoskeletal: No: Pain Skin: No Rash Neurologic: No: Weakness Psychiatric: No: Depression Endocrine: No: Polydipsia Hematologic/Lymphatic: No: Easy Bruising Physical Exam Narrative General: The patient is a well-developed well-nourished female in no acute distress. Head and Neck exam: Head is normocephalic atraumatic. Eyes: EOMI, pupils are equal round and reactive to light. Nose: Midline septum with pink mucous membranes Mouth: Dentition unremarkable. Moist mucus membranes. Posterior oropharynx is not erythematous. No tonsillar hypertrophy. Uvula midline. Airway patent. Neck: No palpable lymphadenopathy. No nuchal rigidity. No thyromegaly. Cardiovascular: Regular rate and rhythm without murmurs, gallops, or rubs. Lungs: Clear to auscultation bilaterally. No wheezes, rhonchi, or rales. Abdomen: Soft, without tenderness to palpation in all 4 quadrants of the abdomen. No guarding, rebound, or rigidity. Normal bowel sounds are audible. No tenderness on palpation of McBurney's point. Negative Quijano's sign. Extremities: No clubbing, cyanosis, or edema. 2+ pulses in all 4 extremities. No calf tenderness on palpation. Back: No costovertebral angle tenderness to palpation. Neurologic Exam: Cranial nerves II through XII are intact, strength is 5 over 5 in all 4 extremities. Intact sensation over all dermatomes. No saddle anesthesia. Skin Exam: No rash noted. Intact skin that is warm and dry. RECTAL EXAM: No masses or tenderness, stool is brown. No evidence of fecal impaction. The patient had no hemorrhoids noted. The patient has normal rectal tone. Data Data Last Documented VS Vital Signs Date Time Temp Pulse Resp B/P (MAP) Pulse Ox O2 Delivery O2 Flow Rate FiO2 05/11/17 02:15 05/11/17 00:53 96 Room Air 05/10/17 23:09 97.8 69 16 Orders Orders Electrocardiogram (05/11/17:15) Complete Blood Count With Diff (05/11/17:15) Comprehensive Metabolic Panel (05/11/17) Troponin I (05/11/17:) B-Type Natriuretic Peptide (05/11/17:15) Prothrombin Time / Inr (Pt) (05/11/17:15) Act Partial Throm Time (Ptt) (05/11/17) C-Reactive Protein (Crp) (05/11/17:15) Lipase (05/11/17:15) Urinalysis - C+S If Indicated (05/11/17 00:15) Magnesium (Mg) (05/11/17:15) Chest, Single Ap (05/11/17:15) Iv Access Insert/Monitor (05/11/17 00:15) Ecg Monitoring (05/11/17:15) Oximetry (05/11/17 00:15) Lactic Acid (05/11/17:15) Ondansetron Inj (Zofran Inj) (05/11/17 00:15) Sodium Chlor 0.9% 250 Ml Inj (Ns 250 Ml (05/11/17 00:15) Sodium Chlor 0.9% 250 Ml Inj (Ns 250 Ml (05/11/17 02:00) Glycerin Adult Supp (Glycerin Adult Supp (05/11/17 02:00) Labs Laboratory Tests Test 05/11/17 00:35 05/11/17 01:29 White Blood Count 8.3 TH/MM3 Red Blood Count 4.48 MIL/MM3 Hemoglobin 14.1 GM/DL Hematocrit 39.8 % Mean Corpuscular Volume 88.8 FL Mean Corpuscular Hemoglobin 31.4 PG Mean Corpuscular Hemoglobin Concent 35.4 % Red Cell Distribution Width 12.9 % Platelet Count 311 TH/MM3 Mean Platelet Volume 7.6 FL Neutrophils (%) (Auto) 74.8 % Lymphocytes (%) (Auto) 14.2 % Monocytes (%) (Auto) 9.5 % Eosinophils (%) (Auto) 1.1 % Basophils (%) (Auto) 0.4 % Neutrophils # (Auto) 6.2 TH/MM3 Lymphocytes # (Auto) 1.2 TH/MM3 Monocytes # (Auto) 0.8 TH/MM3 Eosinophils # (Auto) 0.1 TH/MM3 Basophils # (Auto) 0.0 TH/MM3 CBC Comment DIFF FINAL Differential Comment Prothrombin Time 9.8 SEC Prothromb Time International Ratio 0.9 RATIO Activated Partial Thromboplast Time 26.5 SEC Blood Urea Nitrogen 14 MG/DL Creatinine 0.88 MG/DL Random Glucose 98 MG/DL Total Protein 7.8 GM/DL Albumin 4.4 GM/DL Calcium Level 9.9 MG/DL Magnesium Level 2.3 MG/DL Alkaline Phosphatase 87 U/L Aspartate Amino Transf (AST/SGOT) 21 U/L Alanine Aminotransferase (ALT/SGPT) 26 U/L Total Bilirubin 0.5 MG/DL Sodium Level 131 MEQ/L Potassium Level 3.9 MEQ/L Chloride Level 95 MEQ/L Carbon Dioxide Level 30.7 MEQ/L Anion Gap 5 MEQ/L Estimat Glomerular Filtration Rate 61 ML/MIN Lactic Acid Level 0.5 mmol/L Troponin I LESS THAN 0.02 NG/ML C-Reactive Protein LESS THAN 0.29 MG/DL B-Type Natriuretic Peptide 405 PG/ML Lipase 94 U/L Urine Color LIGHT-YELLOW Urine Turbidity CLEAR Urine pH 7.5 Urine Specific Mabie 1.003 Urine Protein NEG mg/dL Urine Glucose (UA) NEG mg/dL Urine Ketones NEG mg/dL Urine Occult Blood NEG Urine Nitrite NEG Urine Bilirubin NEG Urine Urobilinogen LESS THAN 2.0 MG/DL Urine Leukocyte Esterase NEG Urine RBC LESS THAN 1 /hpf Urine WBC 1 /hpf Urine Hyaline Casts 1 /lpf Urine Mucus FEW /lpf Microscopic Urinalysis Comment CULT NOT INDICATED MDM Medical Decision Making Medical Screen Exam Complete: Yes Emergency Medical Condition: Yes Medical Record Reviewed: Yes Interpretation(s) Last Impressions Chest X-Ray 05/11/17 0015 Signed Impressions: Service Date/Time: Thursday, May 11, 2017 00:27 - CONCLUSION: 1. No acute findings. Bill Araujo MD Differential Diagnosis Constipation, versus fecal impaction, versus viral syndrome, versus bowel obstruction, versus urinary tract infection Narrative Course During the course of the patients emergency department visit, the patients history, examination, and differential diagnosis were reviewed with the patient. The patient had IV access obtained and blood work sent for analysis. The patient was placed on a plant ecologist with oximetry and blood pressure monitoring. An ECG was done on arrival. The patient's ECG shows baseline artifact related to her TENS unit. The patient has no acute ST segment elevation or depression. The patient was initially provided normal saline at 250 bolus which was repeated 1, Zofran 4 mg IV. The patients laboratory studies were reviewed and remarkable for a white count of 8.3, hemoglobin 14.1, platelets 311 with 74.8 neutrophils, monocytes 9.5. CMP is remarkable for sodium of 131, chloride 95, GFR 61, troponin I less than 0.02, C-reactive protein is less than 0.29, BNP is 405, lipase 94. Lactic acid is 0.5, PT PTT within normal limits. Urinalysis is within normal limits. Radiology studies were reviewed and remarkable for a chest x-ray shows no acute abnormality. A rectal exam was done and ruled out fecal impaction. The patient's abdominal examination is benign. The patient reports that the pain has resolved. Eyes suspect I suspect that the patient's abdominal pain is related to constipation and sent some trapped gas which she was released from. The patient will be given a glycerin suppository. The patient will be given a prescription for MiraLAX. The patient is resting comfortably and feels better, is alert and in no distress. The patients results and examination findings were discussed with the patient. The repeat examination is unremarkable and benign. The history, exam, diagnostic testing, and current condition do not suggest any significant pathology to warrant further testing, continued ED treatment, admission, or surgical evaluation at this point. The vital signs have been stable. The patient does not have uncontrollable pain, intractable vomiting, or other significant symptoms. The patient's condition is stable and appropriate for discharge. The patient will pursue further outpatient evaluation with a primary care physician or other designated or consulting physician as indicated in the discharge instructions. The patient expressed understanding and was agreeable with this plan. Diagnosis Primary Impression: Abdominal pain Qualified Codes: R10.30 - Lower abdominal pain, unspecified Additional Impressions: Nausea and vomiting Qualified Codes: R11.2 - Nausea with vomiting, unspecified Constipation Qualified Codes: K59.03 - Drug induced constipation Referrals: Primary Care Physician 2 days Patient Instructions: Abdominal Pain (ED), Acute Nausea and Vomiting (ED), Constipation (ED), General Instructions Med/Other Pt SpecificInfo: Prescription(s) given Scripts Polyethylene Glycol 3350 Powder (Miralax Powder) 17 Gm Powd 17 GM PO DAILY for Constipation, #1 CAN 0 Refills Mix and dissolve one measuring cap-ful (17 grams) in water or juice. Prov: Lynn Echavarria MD 05/11/17 Ondansetron Odt (Zofran Odt) 4 Mg Tab 4 MG SL Q6HR Y for Nausea/Vomiting, #7 TAB 0 Refills Prov: Lynn Echavarria MD 05/11/17 Disposition: 01 DISCHARGE HOME Condition: Stable Lynn Echavarria MD May 11, 2017 00:51
[2017-05-11 00:53] VITALS: O2SAT 96
[2017-05-11 00:56] LABS: AUTOMATED NEUTROPHIL # 6.2 TH/MM3 (1.8-7.7); BASOPHIL % 0.4 % (0.0-2.0); EOSINOPHIL # 0.1 TH/MM3 (0-0.4); EOSINOPHIL % 1.1 % (0.0-4.0); HEMATOCRIT 39.8 % (35.0-46.0); LYMPH % 14.2 % (9.0-44.0); LYMPHOCYTE # 1.2 TH/MM3 (1.0-4.8); MEAN CELL VOLUME 88.8 FL (80.0-100.0); MEAN CORPUSCULAR HEMOGLOBIN 31.4 PG (27.0-34.0); MEAN CORPUSCULAR HGB CONC 35.4 % (32.0-36.0); MONO % 9.5 % (0.0-8.0); NEUT % 74.8 % (16.0-70.0); PLATELET COUNT 311 TH/MM3 (150-450); RED BLOOD COUNT 4.48 MIL/MM3 (4.00-5.30); RED CELL DISTRIBUTION WIDTH 12.9 % (11.6-17.2); WHITE BLOOD COUNT 8.3 TH/MM3 (4.0-11.0)
[2017-05-11 00:58] LABS: HEMO FLAGS DIFF FINAL
--- NOTE | 2017-05-11 01:05 | RADRPT ---
EXAM DATE/TIME: 05/11/2017 00:27 [facility] COMPARISON: No previous studies available for comparison. INDICATIONS : Shortness of breath. MEDICAL HISTORY : Hypertension. Gastroesophageal reflux disease. SURGICAL HISTORY : Pain pump. ENCOUNTER: Initial ACUITY: 1 day PAIN SCORE: 0/10 LOCATION: Bilateral chest FINDINGS: A single view of the chest demonstrates the lungs to be symmetrically aerated without evidence of mas s, infiltrate or effusion. The cardiomediastinal contours are unremarkable. Osseous structures are intact. Stimulator wires overlie midthoracic spine. Mild scoliosis. CONCLUSION: 1. No acute findings. Bill Araujo MD on May 11, 2017 at 1:03 Board Certified Radiologist. This report was verified electronically.
[2017-05-11 01:11] LABS: ALT (GPT) 26 U/L (10-53); ANION GAP 5 MEQ/L (5-15); AST (GOT) 21 U/L (15-37); BICARBONATE 30.7 MEQ/L (21.0-32.0); BLOOD UREA NITROGEN 14 MG/DL (7-18); CHLORIDE 95 MEQ/L (98-107); GLOMERULAR FILTRATION RATE 61 ML/MIN (>89); MAGNESIUM 2.3 MG/DL (1.5-2.5); POTASSIUM 3.9 MEQ/L (3.5-5.1); SODIUM (NA) 131 MEQ/L (136-145)
[2017-05-11 01:14] LABS: ALKALINE PHOSPHATASE 87 U/L (45-117); APTT (PATIENT) 26.5 SEC (24.3-30.1); INTERNATIONAL NORMALIZED RATIO 0.9 RATIO; PROTHROMBIN TIME - PATIENT 9.8 SEC (9.8-11.6); TOTAL BILIRUBIN ADULT 0.5 MG/DL (0.2-1.0)
[2017-05-11 01:45] LABS: BLOOD, URINE NEG (NEG); COMMENT (UR) CULT NOT INDICATED; CULTURE IF INDICATED CULT NOT INDICATED; GLUCOSE,URINE NEG (NEG); HYALINE CAST, URINE 1 /lpf (RARE); KETONE, URINE NEG (NEG); MUCUS URINE FEW /lpf (OCC); NITRITE,URINE NEG (NEG); PH, URINE 7.5 (5.0-8.5); URINE COLOR LIGHT-YELLOW (YELLW/STRAW)
[2017-05-11] MEDS ORDERED: MIRA3350 PO (02:00)
[2017-05-11] MEDS ORDERED: ZOFR4TAB3 SL (02:00)
[2017-05-11] MEDS ORDERED: GLYCERIN ADULT 2 GM SUPP RECTAL ONE (02:00)
--- NOTE | 2017-05-11 21:24 | EKG ---
Date Performed: 05/11/2017 Time Performed: 01:04:28 PTAGE: 86 years EKG: SINUS BRADYCARDIA PACS ARTIFACT Compared to the PREVIOUS TRACING PACs present DOCTOR: Evon Mary Interpretating Date/Time 05/11/2017 21:23:46
[2017-06-06] MEDS ORDERED: TIZA2TAB (14:51)
[2017-06-06] MEDS ORDERED: OMEP20CA2 (14:51)
[2017-06-06] MEDS ORDERED: ALPR0.25 (14:51)
== END 2017-05-11 03:15 | disposition home or self-care (01) ==
LOC: NEPC 23:08 → NEPB 05-11 03:15
DX: R10.30 Lower abdominal pain, unspecified (principal); R11.2 Nausea with vomiting, unspecified; K59.00 Constipation, unspecified; R32 Unspecified urinary incontinence; R35.0 Frequency of micturition; R00.1 Bradycardia, unspecified; K21.9 Gastro-esophageal reflux disease without esophagitis; I10 Essential (primary) hypertension; F41.9 Anxiety disorder, unspecified
CPT/HCPCS: 71010; 80053; 81001; 83605; 83690; 83735; 83880; 84484; 85025; 85610; 85730; 86140; 93005; 96361; 96374; 99285; J2405; J7050

== ENCOUNTER 2017-05-18 11:26 | Inpatient (IN) | payer OTHER, MEDICARE ==
[2017-05-18] VITALS (8 sets, daily range): BP systolic 188–223; BP diastolic 95–115; PULSE 62–109; RESP 17–24; TEMP 96.6–98.1; O2SAT 94–96
[~2017-05-18] VITALS: Ht 152.4 cm; Wt 51.5 kg
[~2017-05-18 11:26] MED LIST changes: -HYDR-3533 PO; +MIRA3350 PO; +ZOFR4TAB3 SL
--- NOTE | 2017-05-18 11:35 | PD ---
Physical Exam Date Seen by Provider: May 18, 2017 Time Seen by Provider: 11:31 Narrative 86-year-old white female presents to emergency Department with complaints of stool incontinence 2 days. The patient states that she had a slip and fall 5 weeks ago and suffered compression fractures of the lower lumbar spine. She states that she was referred for possible kyphoplasty but developed acute stool incontinence in the last 2 days. She denies any urinary overflow incontinence. She denies any focal numbness, no saddle anesthesia, tingling or weakness. She states the pain is severe. Worse with movement. No alleviating factors. Denies any fever or chills. No nausea vomiting. No focal weakness. Data Data Last Documented VS Vital Signs Date Time Temp Pulse Resp B/P (MAP) Pulse Ox O2 Delivery O2 Flow Rate FiO2 05/18/17 11:28 98.1 72 24 223/113 (149) 95 Room Air [facility] Medical Record Reviewed: No Supervised Visit with DENIA: Bill Hernandez May 18, 2017 11:35
[2017-05-18] MEDS ORDERED: GABA300C5 PO (11:50)
[2017-05-18] MEDS ORDERED: ATEN50TA PO (11:50)
--- NOTE | 2017-05-18 12:44 | PD.CONS ---
(Dean Fernandez MD) HPI Consult Requested By Dr Dietz Primary Care Physician Unknown (Dena Fernandez MD) Service Neurosurgery Reason for Consult T11 fracture History of Present Illness Ms. Albarran is a 86 year old female who fell and developed severe thoracolumbar pain. CT Lumbar spine shows T11 compression fracture. She reports of pain located in the lower thoracic spine. She denies radiating pain to her lower extremities, paresthesias, focal weakness, bowel or bladder incontinence. A neurosurgical evaluation was requested. (Bella Thompson) Review of Systems Constitutional: DENIES: Fever, Chills Eyes: DENIES: Diplopia, Vision loss, Double Vision Ears, nose, mouth, throat: DENIES: Vertigo Respiratory: DENIES: Apneas, Shortness of breath Cardiovascular: DENIES: Chest pain Musculoskeletal: COMPLAINS OF: Back pain Neurologic: DENIES: Headache, Localized weakness, Seizures, Poor Balance Psychiatric: DENIES: Hallucinations (Bella Thompson) Past Family Social History Allergies: Coded Allergies: nifedipine (Verified Allergy, Severe, Swelling, 05/18/17) Past Medical History Hypertension, vitamin D deficiency Past Surgical History Bilateral hip replacement Fusion lower back more than 20 years ago in [place], spinal stimulator Reported Medications Reported Meds & Active Scripts Active Miralax Powder (Polyethylene Glycol 3350 Powder) 17 Gm Powd 17 Gm PO DAILY Mix and dissolve one measuring cap-ful (17 grams) in water or juice. Zofran Odt (Ondansetron Odt) 4 Mg Tab 4 Mg SL Q6HR PRN Percocet (Oxycodone-Acetaminophen) 5-325 mg Tab 1-2 Tab PO Q4H PRN Ranitidine (Ranitidine HCl) 150 Mg Tab 150 Mg PO BID Reported Gabapentin 300 Mg Cap 300 Mg PO HS Atenolol 50 Mg Tab 50 Mg PO DAILY Centrum Silver (Multiple Vitamins W/ Minerals) 1 Chw Chw Vitamin D2 (Ergocalciferol) 2,000 Unit Tab 2,000 Units PO DAILY Biotin 1,000 Mcg Tab 1,000 Mg PO DAILY Krill Oil 1,000 Mg Cap 1,000 Mg PO DAILY Allergies: Coded Allergies: nifedipine (Verified Allergy, Severe, Swelling, 05/18/17) Family History Healthy family, parents as a way of old age Social History History of smoking more than 20 years ago, 1 pack per day for approximately 10 years Alcohol use or glass of wine with dinner Denies illicit drug use (Bella Thompson) Physical Exam Vital Signs Vital Signs Date Time Temp Pulse Resp B/P (MAP) Pulse Ox O2 Delivery O2 Flow Rate FiO2 05/18/17 11:45 70 17 98 Room Air 05/18/17 11:28 98.1 72 24 223/113 (149) 95 Room Air (Dean Fernandez MD) Physical Exam Ms. Albarran is alert, awake and oriented to time, place and person. Speech is fluent. Follows commands without difficulties. Cranial nerve examination demonstrates the pupils to be equal, round, and reactive to light. Extra-ocular movements are intact. Facial motor and sensory function are normal and symmetrical. Gross hearing is intact, bilaterally. The uvula is midline and elevates symmetrically with the soft palate. Sternocleidomastoid and trapezius muscles have normal and symmetrical strength. Other cranial nerves are intact. Cervical spine has mild decrease range of motion in anterior flexion, extension , lateral bending, and rotation without pain. There is no tenderness to palpation to the spinous processes or paraspinal muscles. Muscle strength is 5/5 in all muscle groups of both upper extremities including deltoid, biceps, triceps and cash control specialist. In the lower extremities, strength is 5/5 in both iliopsoas, quadriceps, hamstrings, plantar flexion, dorsiflexion, and extensor hallicus longus. Pain to palpation over the lower thoracic spine. Sensory examination is intact to light touch in both the upper and lower extremities, symmetrically. Deep tendon reflexes are 1+ and symmetrical in the biceps, triceps, and brachioradialis, bilaterally, in the upper extremities. In the lower extremities , the patellar and Achilles are 1+, bilaterally. There is a bilateral plantar flexion response. Hoffmanns sign is negative. There is no ankle clonus. Cerebellar examination is intact to [id number] test. (Bella Thompson) Imaging Multiplanar multisequence MRI of the lumbar spine was performed without contrast. FINDINGS: The most caudal appearing lumbar vertebra is numbered as L5. There is a 50% compression deformity of the T11 vertebral body with associated T2 prolongation in the marrow of the compression deformity. No significant abnormality in the pedicles. There is mild flattening of the ventral margin of the thecal sac at this level but no displaced fragments. The conus is at the level of T12-L1. Moderate curvature of the mid lumbar spine convex towards the right. Multilevel spinal stenosis L1-L3 described at each level below. T12-L1: The thecal sac has a normal diameter. No evidence of disc bulge or protrusion. The neural foramina are patent bilaterally. L1-L2: Mild spinal stenosis due to posterior osteophytes which are located right paracentral and left paracentral. There is associated bulging of the disc which extends in the neural foramen bilaterally with loss of fat about the nerve root in the neural foramen both sides. The AP dimension of the thecal sac is narrowed down to 6 mm. L2-L3: Mild severity spinal stenosis due to broad-based osteophytes flattening the ventral margin of the thecal sac and causing narrowing of the bony neural foramina bilaterally. Fat is seen about the nerve in the neural foramen both sides. AP dimension of the thecal sac is narrowed to 7 mm. L3-L4: Moderate severity spinal stenosis due to a combination of broad-based disc osteophyte complex and bilateral ligamentum flavum hypertrophy. There is also asymmetric hypertrophy of the facet joints on the right side. There is narrowing of the bony neural foramina bilaterally and loss of fat about the nerve root in the neural foramen on the left side. L4-L5: The thecal sac has a normal diameter. No evidence of disc bulge or protrusion. The neural foramina are patent bilaterally. L5-S1: The thecal sac has a normal diameter. No evidence of disc bulge or protrusion. The neural foramina are patent bilaterally. CONCLUSION: 1. Multilevel spinal stenosis due to posterior endplate hypertrophy and facet joint hypertrophy L1-L4 with evidence of neural impingement bilaterally at L1-2 and on the left side at L3-4. 2. 50% compression deformity superior T. 11 vertebral body with signal abnormality suggests that this is acute or subacute. There is some expansion of the posterior vertebral body, but no retropulsed fragment. (Dean Fernandez MD) Attending Statement Neuro. neuro checks in a serial fashion. Discussed with her the alternatives of treatment including a kyphoplasty of T11. We have discussed the details including the [id number] details of the surgical procedure, its indications, alternatives, risks, and potential complications. Risks and potential complications include, but are not limited to, infection, blood loss, CSF leak, partial or complete loss of sight in one or both eyes, paresis, paralysis, permanent pain or difficulty swallowing, loss of bowel or bladder function, complications from anesthesia, blood clot, stroke, myocardial infarction, or even . Pulmonary. Continue aggressive pulmonary toilette, nasotracheal suction, and breathing treatments with nebulizers. Nutrition. Oral diet Renal. monitor closely urine output, BUN and creatinine Endocrine. Monitor serial Acu checks and SSI as needed in detail ID monitor for signs of infection Protonix for stress ulcer prophylaxis Alli hose and SCD's for DVT prophylaxis. (Dean Fernandez MD) Dean Fernandez MD May 18, 2017 12:44 Bella Thompson May 19, 2017 11:35
[2017-05-18] MEDS ORDERED: MORPHINE SULFATE 4 MG/ML INJ IV PUSH ONE (12:45)
[2017-05-18 13:13] LABS: AUTOMATED NEUTROPHIL # 6.9 TH/MM3 (1.8-7.7); BASOPHIL % 0.5 % (0.0-2.0); EOSINOPHIL # 0.1 TH/MM3 (0-0.4); EOSINOPHIL % 1.2 % (0.0-4.0); HEMATOCRIT 40.3 % (35.0-46.0); HEMO FLAGS DIFF FINAL; LYMPH % 10.7 % (9.0-44.0); LYMPHOCYTE # 0.9 TH/MM3 (1.0-4.8); MEAN CELL VOLUME 90.4 FL (80.0-100.0); MEAN CORPUSCULAR HEMOGLOBIN 30.9 PG (27.0-34.0); MEAN CORPUSCULAR HGB CONC 34.2 % (32.0-36.0); MONO % 6.9 % (0.0-8.0); NEUT % 80.7 % (16.0-70.0); PLATELET COUNT 332 TH/MM3 (150-450); RED BLOOD COUNT 4.46 MIL/MM3 (4.00-5.30); RED CELL DISTRIBUTION WIDTH 13.1 % (11.6-17.2); WHITE BLOOD COUNT 8.5 TH/MM3 (4.0-11.0)
[2017-05-18 13:22] LABS: APTT (PATIENT) 25.1 SEC (24.3-30.1); INTERNATIONAL NORMALIZED RATIO 0.9 RATIO
[2017-05-18] MEDS ORDERED: ONDANSETRON HCL 4 MG/2 ML VIAL IVP PRN (13:30)
[2017-05-18] MEDS ORDERED: LACTULOSE SYRUP 20 GM/30 ML CUP PO PRN (13:30)
[2017-05-18] MEDS ORDERED: MORPHINE SULFATE 4 MG/ML INJ IV PUSH PRN ×2 (13:30)
[2017-05-18] MEDS ORDERED: ACETAMINOPHEN/HYDROcodone 325 MG/5 MG TAB PO PRN (13:30)
[2017-05-18] MEDS ORDERED: ACETAMINOPHEN 325 MG TAB PO PRN (13:30)
[2017-05-18] MEDS ORDERED: SENNOSIDES 8.6 MG TAB PO PRN (13:30)
[2017-05-18] MEDS ORDERED: MAGNESIUM HYDROXIDE SUSP 30 ML CUP PO PRN (13:30)
[2017-05-18] MEDS ORDERED: BISACODYL 10 MG SUPP RECTAL PRN (13:30)
[2017-05-18] MEDS ORDERED: NALOXONE HCL 0.4 MG/ML AMP IV PUSH PRN ×2 (13:30)
[2017-05-18] MEDS ORDERED: SODIUM CHLORIDE 0.9% FLUSH 10 ML FLUSH IV FLUSH PRN (13:30)
[2017-05-18] MEDS ORDERED: ONDANSETRON ODT 4 MG TAB SL PRN (13:30)
--- NOTE | 2017-05-18 13:32 | PD ---
HPI Chief Complaint: Neuro Symptoms/ Deficits Time Seen by Provider: 11:51 Travel History International Travel<30 days: No Contact w/Intl Traveler<30days: No Traveled to known affect area: No History of Present Illness HPI Is an 86 year-old woman who presents to the emergency department complaining of back pain and fecal incontinence. She has a known T12 compression fracture. She was given a follow-up with Dr. Fernandez. She states she started having worsening severe pain, and had 2 episodes of fecal incontinence. This seems somewhat related to pain with walking and difficulty in the bathroom and partly due to leakage of stool. She denies any numbness tingling or weakness. No other complaints. History Past Medical History Narrative Medical Chronic back pain Hypertension Tetanus Vaccination: > 5 Years Influenza Vaccination: Yes : 3 Para: 3 Social History Alcohol Use: Yes (wine nightly) Tobacco Use: No (20 years ago) Allergies-Medications (Allergen,Severity, Reaction): Coded Allergies: nifedipine (Verified Allergy, Severe, Swelling, 05/18/17) Reported Meds & Prescriptions Reported Meds & Active Scripts Active Miralax Powder (Polyethylene Glycol 3350 Powder) 17 Gm Powd 17 Gm PO DAILY Mix and dissolve one measuring cap-ful (17 grams) in water or juice. Zofran Odt (Ondansetron Odt) 4 Mg Tab 4 Mg SL Q6HR PRN Percocet (Oxycodone-Acetaminophen) 5-325 mg Tab 1-2 Tab PO Q4H PRN Ranitidine (Ranitidine HCl) 150 Mg Tab 150 Mg PO BID Reported Gabapentin 300 Mg Cap 300 Mg PO HS Atenolol 50 Mg Tab 50 Mg PO DAILY Centrum Silver (Multiple Vitamins W/ Minerals) 1 Chw Chw Vitamin D2 (Ergocalciferol) 2,000 Unit Tab 2,000 Units PO DAILY Biotin 1,000 Mcg Tab 1,000 Mg PO DAILY Krill Oil 1,000 Mg Cap 1,000 Mg PO DAILY Review of Systems Except as stated in HPI: all other systems reviewed are Neg Physical Exam Narrative GENERAL: Well-appearing 86 old woman, no acute distress. SKIN: Focused skin assessment warm/dry. HEAD: Atraumatic. Normocephalic. EYES: Pupils equal and round. No scleral icterus. No injection or drainage. ENT: No nasal bleeding or discharge. Mucous membranes pink and moist. NECK: Trachea midline. No JVD. CARDIOVASCULAR: Regular rate and rhythm. No murmur appreciated. RESPIRATORY: No accessory muscle use. Clear to auscultation. Breath sounds equal bilaterally. GASTROINTESTINAL: Abdomen soft, non-tender, nondistended. Hepatic and splenic margins not palpable. MUSCULOSKELETAL: No obvious deformities. No edema. Nerve Stimulator in the back NEUROLOGICAL: Awake and alert. No obvious cranial nerve deficits. Motor grossly within normal limits. Strength full and equal in the lower extremities. No numbness or tingling. Normal rectal exam. Normal perineal sensation. Reflexes slightly diminished. In the lower extremities. Negative Babinski PSYCHIATRIC: Appropriate mood and affect; insight and judgment normal. Data Data Last Documented VS Vital Signs Date Time Temp Pulse Resp B/P (MAP) Pulse Ox O2 Delivery O2 Flow Rate FiO2 05/18/17 11:45 70 17 98 Room Air 05/18/17 11:28 98.1 223/113 (149) Orders Orders Complete Blood Count With Diff (05/18/17 12:35) Comprehensive Metabolic Panel (05/18/17 12:35) Spine, Thoracic-Ap/Lat/Sw(3vw) (05/18/17 ) Act Partial Throm Time (Ptt) (05/18/17 12:35) Prothrombin Time / Inr (Pt) (05/18/17 12:35) Iv Access Insert/Monitor (05/18/17 12:35) Morphine Inj (Morphine Inj) (05/18/17 12:45) Admit To Inpatient (05/18/17 ) Vital Signs (Adult) Q4H (05/18/17 13:22) Neuro Checks Q4H (05/18/17 13:22) Activity Oob With Assistance (05/18/17 13:22) Diet Heart Healthy (05/18/17 Lunch) Sodium Chloride 0.9% Flush (Ns Flush) (05/18/17 13:30) Sodium Chloride 0.9% Flush (Ns Flush) (05/18/17 21:00) Acetaminophen (Tylenol) (05/18/17 13:30) Ondansetron Inj (Zofran Inj) (05/18/17 13:30) Basic Metabolic Panel (Bmp) (05/19/17 06:00) Complete Blood Count With Diff (05/19/17 06:00) Resp Oxygen Syd C Titrat 1-4 L (05/18/17 ) Pt Request For Service (05/18/17 13:22) Ot Request For Service (05/18/17 13:22) Case Management Consult (05/18/17 13:22) Scd Bilateral/Knee High DELROY.BID (05/18/17 13:22) Alli Bilateral/Knee High DELROY.QSHIFT (05/18/17 13:22) Naloxone Inj (Narcan Inj) (05/18/17 13:30) Docusate Sodium-Senna (Ynes-Colace) (05/18/17 21:00) Magnesium Hydroxide Liq (Milk Of Magnesi (05/18/17 13:30) Sennosides (Senokot) (05/18/17 13:30) Bisacodyl Supp (Dulcolax Supp) (05/18/17 13:30) Lactulose Liq (Lactulose Liq) (05/18/17 13:30) Inpatient Certification (05/18/17 ) Labs Laboratory Tests Test 05/18/17 12:40 White Blood Count 8.5 TH/MM3 Red Blood Count 4.46 MIL/MM3 Hemoglobin 13.8 GM/DL Hematocrit 40.3 % Mean Corpuscular Volume 90.4 FL Mean Corpuscular Hemoglobin 30.9 PG Mean Corpuscular Hemoglobin Concent 34.2 % Red Cell Distribution Width 13.1 % Platelet Count 332 TH/MM3 Mean Platelet Volume 8.0 FL Neutrophils (%) (Auto) 80.7 % Lymphocytes (%) (Auto) 10.7 % Monocytes (%) (Auto) 6.9 % Eosinophils (%) (Auto) 1.2 % Basophils (%) (Auto) 0.5 % Neutrophils # (Auto) 6.9 TH/MM3 Lymphocytes # (Auto) 0.9 TH/MM3 Monocytes # (Auto) 0.6 TH/MM3 Eosinophils # (Auto) 0.1 TH/MM3 Basophils # (Auto) 0.0 TH/MM3 CBC Comment DIFF FINAL Differential Comment Prothrombin Time 10.0 SEC Prothromb Time International Ratio 0.9 RATIO Activated Partial Thromboplast Time 25.1 SEC MDM Medical Decision Making Medical Screen Exam Complete: Yes Emergency Medical Condition: Yes Differential Diagnosis Compression fracture, pain, weakness, spinal cord compression, other Narrative Course Medical decision-making 86-year-old woman who presents to the emergency department complaining of worsening severe back pain and fecal incontinence. Neurologic exam is not status any evidence of spinal cord compression. I spoke with Dr. Fernandez, lipase admitted, will do kyphoplasty as an inpatient. Diagnosis Primary Impression: T12 compression fracture Darrius Dietz MD May 18, 2017 13:32
[2017-05-18 13:40] LABS: ALT (GPT) 25 U/L (10-53); ANION GAP 8 MEQ/L (5-15); AST (GOT) 20 U/L (15-37); BLOOD UREA NITROGEN 12 MG/DL (7-18); CHLORIDE 97 MEQ/L (98-107); GLOMERULAR FILTRATION RATE 55 ML/MIN (>89); POTASSIUM 3.8 MEQ/L (3.5-5.1); SODIUM (NA) 133 MEQ/L (136-145)
[2017-05-18 13:42] LABS: ALKALINE PHOSPHATASE 99 U/L (45-117); TOTAL BILIRUBIN ADULT 0.6 MG/DL (0.2-1.0)
[2017-05-18] MEDS ORDERED: PILL SPLITTER OTHER PRN (14:00)
--- NOTE | 2017-05-18 14:19 | RADRPT ---
EXAM DATE/TIME: 05/18/2017 13:19 [facility] COMPARISON: No previous studies available for comparison. INDICATIONS : Mid-to lower thoracic pain from fall,. MEDICAL HISTORY : Herniated disk SURGICAL HISTORY : Spinal stimulator. Bilat hip replacements. Lumbar fusion. ENCOUNTER: Initial ACUITY: 2 weeks PAIN SCORE: 9/10 LOCATION: Thoracic spine FINDINGS: There is normal alignment of the thoracic vertebral bodies. Loss of height from the superior endplate of what I believe is T11 perivertebral and heights are otherwise maintained. Spinal stimulator enter s at the T10 level with the stimulator tip positioned between T7 and T9. Dextroscoliosis of the lumbar spine with multilevel degenerative disc disease.. CONCLUSION: 1. Age-indeterminate compression fracture through the superior endplate of T11. 2. Spinal stimulator enters the epidural space at T10 with the stimulator tip positioned posterior to T7-T9. Oren Fenton MD on May 18, 2017 at 14:15 Board Certified Radiologist. This report was verified electronically.
--- NOTE | 2017-05-18 16:04 | HHI.HP ---
HPI Service [facility] Primary Care Physician Unknown Admission Diagnosis compression fracture, intractable pain Diagnoses: Chief Complaint: back pain, bowel incontinence Travel History International Travel<30 Days: No Contact w/Intl Traveler <30 Da: No Traveled to Known Affected Are: No History of Present Illness Patient is a very pleasant 86-year-old female with past medical history of hypertension, vitamin D deficiency, recent fall approximately 5 weeks ago who came to the emergency room for reevaluation of back pain. Patient says she has back pain sometimes radiating to her buttocks, however she was able to manage the pain at home with pain medications until yesterday. Says for the past to 3 days she has bowel incontinence which is new. There is no paresthesia. She can walk without difficulty. Was seen by a neurosurgeon who recommended inpatient admission and plans for surgery tomorrow morning. The patient also noted with elevated blood pressure, she had headaches on admission. Patient says she has high blood pressure when she goes to the hospital for office. She denies headaches at this time for back pain however she received morphine the emergency room. Denies nausea, vomiting, diarrhea or constipation. She has bowel incontinence. Denies fever or chills. Review of Systems Except as stated in HPI: all other systems reviewed are Neg Past Family Social History Past Medical History Hypertension, vitamin D deficiency Past Surgical History Bilateral hip replacement Fusion lower back more than 20 years ago in [place], spinal stimulator Reported Medications Reported Meds & Active Scripts Active Miralax Powder (Polyethylene Glycol 3350 Powder) 17 Gm Powd 17 Gm PO DAILY Mix and dissolve one measuring cap-ful (17 grams) in water or juice. Zofran Odt (Ondansetron Odt) 4 Mg Tab 4 Mg SL Q6HR PRN Percocet (Oxycodone-Acetaminophen) 5-325 mg Tab 1-2 Tab PO Q4H PRN Ranitidine (Ranitidine HCl) 150 Mg Tab 150 Mg PO BID Reported Gabapentin 300 Mg Cap 300 Mg PO HS Atenolol 50 Mg Tab 50 Mg PO DAILY Centrum Silver (Multiple Vitamins W/ Minerals) 1 Chw Chw Vitamin D2 (Ergocalciferol) 2,000 Unit Tab 2,000 Units PO DAILY Biotin 1,000 Mcg Tab 1,000 Mg PO DAILY Krill Oil 1,000 Mg Cap 1,000 Mg PO DAILY Allergies: Coded Allergies: nifedipine (Verified Allergy, Severe, Swelling, 05/18/17) Family History Healthy family, parents as a way of old age Social History History of smoking more than 20 years ago, 1 pack per day for approximately 10 years Alcohol use or glass of wine with dinner Denies illicit drug use Physical Exam Vital Signs Vital Signs Date Time Temp Pulse Resp B/P (MAP) Pulse Ox O2 Delivery O2 Flow Rate FiO2 05/18/17 15:00 70 20 209/100 (136) 96 Room Air 05/18/17 14:00 69 17 217/99 (138) 96 Room Air 05/18/17 13:00 62 17 214/102 (139) 96 Room Air 05/18/17 12:15 65 18 216/104 (141) 95 Room Air 05/18/17 11:45 70 17 98 Room Air 05/18/17 11:28 98.1 72 24 223/113 (149) 95 Room Air Physical Exam GENERAL: This is a very pleasant 86-year-old female, well-nourished, well- developed patient, in no apparent distress. SKIN: No rashes, ecchymoses or lesions. Cool and dry. HEAD: Atraumatic. Normocephalic. No temporal or scalp tenderness. EYES: Pupils equal round and reactive. Extraocular motions intact. No scleral icterus. No injection or drainage. ENT: Nose without bleeding, purulent drainage or septal hematoma. Throat without erythema, tonsillar hypertrophy or exudate. Uvula midline. Airway patent. NECK: Trachea midline. No JVD or lymphadenopathy. Supple, nontender, no meningeal signs. CARDIOVASCULAR: Regular rate and rhythm without murmurs, gallops, or rubs. RESPIRATORY: Clear to auscultation. Breath sounds equal bilaterally. No wheezes , rales, or rhonchi. GASTROINTESTINAL: Abdomen soft, non-tender, nondistended. No hepato-splenomegaly , or palpable masses. No guarding. MUSCULOSKELETAL: Extremities without clubbing, cyanosis, or edema. No joint tenderness, effusion, or edema noted. No calf tenderness. Negative Homans sign bilaterally. NEUROLOGICAL: Awake and alert. Cranial nerves II through XII intact. Motor and sensory grossly within normal limits. Five out of 5 muscle strength in all muscle groups. Normal speech. Laboratory Laboratory Tests Test 05/18/17 12:40 White Blood Count 8.5 Red Blood Count 4.46 Hemoglobin 13.8 Hematocrit 40.3 Mean Corpuscular Volume 90.4 Mean Corpuscular Hemoglobin 30.9 Mean Corpuscular Hemoglobin Concent 34.2 Red Cell Distribution Width 13.1 Platelet Count 332 Mean Platelet Volume 8.0 Neutrophils (%) (Auto) 80.7 Lymphocytes (%) (Auto) 10.7 Monocytes (%) (Auto) 6.9 Eosinophils (%) (Auto) 1.2 Basophils (%) (Auto) 0.5 Neutrophils # (Auto) 6.9 Lymphocytes # (Auto) 0.9 Monocytes # (Auto) 0.6 Eosinophils # (Auto) 0.1 Basophils # (Auto) 0.0 CBC Comment DIFF FINAL Differential Comment Prothrombin Time 10.0 Prothromb Time International Ratio 0.9 Activated Partial Thromboplast Time 25.1 Blood Urea Nitrogen 12 Creatinine 0.96 Random Glucose 104 Total Protein 7.4 Albumin 4.0 Calcium Level 10.3 Alkaline Phosphatase 99 Aspartate Amino Transf (AST/SGOT) 20 Alanine Aminotransferase (ALT/SGPT) 25 Total Bilirubin 0.6 Sodium Level 133 Potassium Level 3.8 Chloride Level 97 Carbon Dioxide Level 28.0 Anion Gap 8 Estimat Glomerular Filtration Rate 55 Result Diagram: 05/18/17 1240 05/18/17 1240 Imaging Last Impressions Thoracic Spine X-Ray 05/18/17 0000 Signed Impressions: Service Date/Time: Thursday, May 18, 2017 13:19 - CONCLUSION: 1. Age-indeterminate compression fracture through the superior endplate of T11. 2. Spinal stimulator enters the epidural space at T10 with the stimulator tip positioned posterior to T7-T9. MD Prabhjot Epstein VTE Risk Assessment Caprini VTE Risk Assessment: Mod/High Risk (score >= 2) Caprini Risk Assessment Model Point Value = 1 Point Value = 2 Point Value = 3 Point Value = 5 Age 41-60 Minor surgery BMI > 25 kg/m2 Swollen legs Varicose veins or History of unexplained or recurrent spontaneous Oral contraceptives or hormone replacement Sepsis (< 1 month) Serious lung disease, including pneumonia (< 1 month) Abnormal pulmonary function Acute myocardial infarction Congestive heart failure (< 1 month) History of inflammatory bowel disease Medical patient at bed rest Age 61-74 Arthroscopic surgery Major open surgery (> 45 min) Laparoscopic surgery (> 45 min) Malignancy Confined to bed (> 72 hours) Immobilizing plaster cast Central venous access Age >= 75 History of VTE Family history of VTE Factor V Leiden Prothrombin [id number] Lupus anticoagulant Anticardiolipin antibodies Elevated serum homocysteine Heparin-induced thrombocytopenia Other congenital or acquired thrombophilia Stroke (< 1 month) Elective arthroplasty Hip, pelvis, or leg fracture Acute spinal cord injury (< 1 month) Prophylaxis Regimen Total Risk Factor Score Risk Level Prophylaxis Regimen 0-1 Low Early ambulation 2 Moderate Order ONE of the following: *Sequential Compression Device (SCD) *Heparin 5000 units SQ BID 3-4 Higher Order ONE of the following medications: *Heparin 5000 units SQ TID *Enoxaparin/Lovenox 40 mg SQ daily (WT < 150 kg, CrCl > 30 mL/min) *Enoxaparin/Lovenox 30 mg SQ daily (WT < 150 kg, CrCl > 10-29 mL/min) *Enoxaparin/Lovenox 30 mg SQ BID (WT < 150 kg, CrCl > 30 mL/min) AND/OR *Sequential Compression Device (SCD) 5 or more Highest Order ONE of the following medications: *Heparin 5000 units SQ TID (Preferred with Epidurals) *Enoxaparin/Lovenox 40 mg SQ daily (WT < 150 kg, CrCl > 30 mL/min) *Enoxaparin/Lovenox 30 mg SQ daily (WT < 150 kg, CrCl > 10-29 mL/min) *Enoxaparin/Lovenox 30 mg SQ BID (WT < 150 kg, CrCl > 30 mL/min) AND *Sequential Compression Device (SCD) Assessment and Plan Assessment and Plan 86-year-old female with Compression fracture superior endplate T11 status post whole per week weeks ago now with bowel incontinence Seen by Dr. Fernandez, recommends surgery, plan for surgery tomorrow morning 05/19 Patient received morphine in the emergency room by IV Patient pain management with by mouth medications and IV per pain scale Consult PT/ OT Hypertensive emergency. Blood pressure on admission 223/113 Restart medication from home atenolol IV hydralazine when necessary Chronic medical problems appear stable at this time. Restart home medications Case management consulted for discharge planning DVT prophylaxis SCD/teds, hold chemical prophylaxis at this time, as plan for surgery Discussed Condition With Patient, nurse, ED physician family Rachid at bedside Physician Certification 2 Midnight Certification Type: Admission for Inpatient Services Order for Inpatient Services The services are ordered in accordance with Medicare regulations or non- Medicare payer requirements, as applicable. In the case of services not specified as inpatient-only, they are appropriately provided as inpatient services in accordance with the 2-midnight benchmark. Estimated LOS (days): 5 days is the estimated time the patient will need to remain in the hospital, assuming treatment plan goals are met and no additional complications. Post-Hospital Plan: Not yet determined Lalitha Reddy MD May 18, 2017 16:04
[2017-05-18] MEDS ORDERED: ATENOLOL 50 MG TAB PO ONE (16:15)
[2017-05-18] MEDS ORDERED: hydrALAZINE HCL 20 MG/ML VIAL IV PUSH PRN (16:15)
[2017-05-18] MEDS: hydrALAZINE HCL 10 MG TAB PO PRN (17:09)
[2017-05-18] MEDS: cloNIDine HCL 0.1 MG TAB PO PRN (17:11)
[2017-05-18] MEDS: GABAPENTIN 300 MG CAP PO SCH (21:02)
[2017-05-18] MEDS: SODIUM CHLORIDE 0.9% FLUSH 10 ML FLUSH IV FLUSH SCH (21:03)
[2017-05-18] MEDS: FAMOTIDINE 20 MG TAB PO SCH (21:03)
[2017-05-18] MEDS: ACETAMINOPHEN/HYDROcodone 325 MG/10 MG TAB PO PRN (21:03)
[2017-05-18] MEDS: DOCUSATE SODIUM 50 MG/SENNA 8.6 MG TAB PO SCH (21:03)
[2017-05-19] VITALS (8 sets, daily range): BP systolic 160–210; BP diastolic 87–105; PULSE 58–66; RESP 17–18; TEMP 96–97.7; O2SAT 94–98
[2017-05-19] MEDS: cloNIDine HCL 0.1 MG TAB PO PRN ×3 (01:01→17:38)
[2017-05-19] MEDS: hydrALAZINE HCL 10 MG TAB PO PRN ×3 (01:01→20:23)
[2017-05-19 07:56] LABS: AUTOMATED NEUTROPHIL # 3.1 TH/MM3 (1.8-7.7); BASOPHIL % 0.5 % (0.0-2.0); EOSINOPHIL # 0.1 TH/MM3 (0-0.4); EOSINOPHIL % 2.5 % (0.0-4.0); HEMATOCRIT 39.7 % (35.0-46.0); HEMO FLAGS DIFF FINAL; LYMPH % 27.8 % (9.0-44.0); LYMPHOCYTE # 1.5 TH/MM3 (1.0-4.8); MEAN CELL VOLUME 89.8 FL (80.0-100.0); MEAN CORPUSCULAR HGB CONC 34.5 % (32.0-36.0); NEUT % 60.2 % (16.0-70.0); PLATELET COUNT 325 TH/MM3 (150-450); RED BLOOD COUNT 4.42 MIL/MM3 (4.00-5.30); WHITE BLOOD COUNT 5.2 TH/MM3 (4.0-11.0)
[2017-05-19] MEDS: CHOLECALCIFEROL (VIT D3) 1000 UNIT TAB PO SCH (08:05)
[2017-05-19] MEDS: POLYETHYLENE GLYCOL 17 GM PKG PO SCH (08:05)
[2017-05-19] MEDS: DOCUSATE SODIUM 50 MG/SENNA 8.6 MG TAB PO SCH ×2 (08:05→20:23)
[2017-05-19] MEDS: FAMOTIDINE 20 MG TAB PO SCH ×2 (08:05→20:22)
[2017-05-19 08:23] LABS: BICARBONATE 30.5 MEQ/L (21.0-32.0); POTASSIUM 3.4 MEQ/L (3.5-5.1)
[2017-05-19] MEDS: SODIUM CHLORIDE 0.9% FLUSH 10 ML FLUSH IV FLUSH SCH ×2 (09:00→20:22)
[2017-05-19] MEDS ORDERED: NON-FORMULARY DRUG (Krill Oil 1,000 MG) PO SCH (09:00)
[2017-05-19] MEDS ORDERED: NON-FORMULARY DRUG (Biotin 1,000 MG) PO SCH (09:00)
--- NOTE | 2017-05-19 09:14 | HHI.PR ---
Subjective Remarks Ambulated to the bath, has bowel incontinence. With pain , controlled by meds. \White coat HTN. No headache, cp, sob., n/v/d/c. Objective Vitals Vital Signs Date Time Temp Pulse Resp B/P (MAP) Pulse Ox O2 Delivery O2 Flow Rate FiO2 05/19/17 07:16 Room Air 05/19/17 04:54 97.1 62 18 160/93 (115) 97 Manual Cuff/Auscultation 05/19/17 02:17 Room Air 05/19/17 00:41 97.3 62 18 205/105 (138) 96 05/18/17 22:13 17 05/18/17 22:10 190/102 (131) Automatic Cuff 05/18/17 20:50 96.8 70 17 188/95 (126) 94 05/18/17 16:30 96.6 109 20 220/115 (150) 96 05/18/17 16:27 Room Air 05/18/17 15:00 70 20 209/100 (136) 96 Room Air 05/18/17 14:00 69 17 217/99 (138) 96 Room Air 05/18/17 13:00 62 17 214/102 (139) 96 Room Air 05/18/17 12:15 65 18 216/104 (141) 95 Room Air 05/18/17 11:45 70 17 98 Room Air 05/18/17 11:28 98.1 72 24 223/113 (149) 95 Room Air I/O 05/18/17 05/18/17 05/18/17 05/19/17 05/19/17 05/19/17 07:00 15:00 23:00 07:00 15:00 23:00 Intake Total 0 ml 0 ml Balance 0 ml 0 ml Intake Oral 0 ml 0 ml # Voids 2 2 # Bowel Movements 1 0 Result Diagram: 05/19/17 0736 05/19/1736 Imaging Last Impressions Thoracic Spine X-Ray 05/18/17 0000 Signed Impressions: Service Date/Time: Thursday, May 18, 2017 13:19 - CONCLUSION: 1. Age-indeterminate compression fracture through the superior endplate of T11. 2. Spinal stimulator enters the epidural space at T10 with the stimulator tip positioned posterior to T7-T9. Oren Fenton MD Objective Remarks GENERAL: This is a very pleasant 86-year-old female, well-nourished, well- developed patient, in no apparent distress. CARDIOVASCULAR: Regular rate and rhythm without murmurs, gallops, or rubs. RESPIRATORY: Clear to auscultation. Breath sounds equal bilaterally. No wheezes , rales, or rhonchi. GASTROINTESTINAL: Abdomen soft, non-tender, nondistended. No hepato-splenomegaly , or palpable masses. No guarding. MUSCULOSKELETAL: Extremities without clubbing, cyanosis, or edema. No joint tenderness, effusion, or edema noted. No calf tenderness. Negative Homans sign bilaterally. NEUROLOGICAL: Awake and alert. Cranial nerves II through XII intact. Motor and sensory grossly within normal limits. Five out of 5 muscle strength in all muscle groups. Normal speech. A/P Assessment and Plan 86-year-old female with Compression fracture superior endplate T11 status post whole per week weeks ago now with bowel incontinence Seen by Dr. Fernandez, recommends surgery, plan for surgery 05/20. Patient received morphine in the emergency room by IV Patient pain management with by mouth medications and IV per pain scale Consult PT/ OT Hypertensive emergency. White coat hypertension Blood pressure on admission 223/113 Restart medication from home atenolol IV hydralazine when necessary, PO hydralazine prn Chronic medical problems appear stable at this time. Restart home medications Case management consulted for discharge planning DVT prophylaxis SCD/teds, hold chemical prophylaxis at this time, as plan for surgery Discussed Condition With Patient, nurse, family at bedside Discussed with dr Fernandez surgery for 05/20 Lalitha Reddy MD May 19, 2017 09:14
[2017-05-19] MEDS: ATENOLOL 50 MG TAB PO SCH (09:28)
[2017-05-19] MEDS: ACETAMINOPHEN/HYDROcodone 325 MG/10 MG TAB PO PRN ×3 (09:29→20:26)
[2017-05-19] MEDS: SODIUM CHLOR 0.9% 1000 ML INJ 1,000 ML IV SCH ×2 (15:07→23:33)
[2017-05-19] MEDS: GABAPENTIN 300 MG CAP PO SCH (20:22)
[2017-05-19] MEDS: CHLORHEXIDINE GLUCONATE 4% SOLN 120 ML BTL TOP SCH (22:02)
[2017-05-20] VITALS (9 sets, daily range): BP systolic 175–205; BP diastolic 85–110; PULSE 53–76; RESP 16–19; TEMP 95.4–97.9; O2SAT 95–97
[2017-05-20] MEDS: ACETAMINOPHEN/HYDROcodone 325 MG/10 MG TAB PO PRN ×4 (00:57→21:17)
[2017-05-20] MEDS: cloNIDine HCL 0.1 MG TAB PO PRN (00:57)
[2017-05-20] MEDS: hydrALAZINE HCL 10 MG TAB PO PRN ×2 (05:49→19:18)
[2017-05-20] MEDS ORDERED: ceFAZolin 2 GM PREMIX 50 ML IV ONE (06:00)
[2017-05-20] MEDS ORDERED: VANCOMYCIN INJ 1,000 MG in SODIUM CHLOR 0.9% 250 ML INJ 250 ML IV ONE (06:00)
[2017-05-20] MEDS ORDERED: DO NOT ADM ANY ANTICOAGULANT DRUGS PRN (10:20)
[2017-05-20] MEDS: ATENOLOL 50 MG TAB PO SCH (10:30)
[2017-05-20] MEDS ORDERED: ARTIFICIAL TEARS OPTH OINT 3.5 APPLIC/3.5 GM TUBO ONE (10:33)
--- NOTE | 2017-05-20 10:40 | RADRPT ---
EXAM DATE/TIME: 05/20/2017 09:49 [facility] COMPARISON: SPINE THORACIC AP/LAT/SW (3VW), May 18, 2017, 13:19. INDICATIONS : Post-op kyphoplasty T-11. MEDICAL HISTORY : None. SURGICAL HISTORY : None. ENCOUNTER: Subsequent ACUITY: 1 day PAIN SCORE: Non-responsive. LOCATION: Thoracolumbar spine. FINDINGS: AP lateral matrix views of the thoracolumbar junction reveal kyphoplasty appropriately performed at T 11. CONCLUSION: T11 kyphoplasty Christian Cole MD on May 20, 2017 at 10:38 Board Certified Radiologist. This report was verified electronically.
[2017-05-20] MEDS ORDERED: NS + KCL 20 MEQ INJ 1,000 ML IV SCH (10:49)
[2017-05-20] MEDS ORDERED: ACETAMINOPHEN 325 MG TAB PO PRN (11:00)
[2017-05-20] MEDS ORDERED: MORPHINE SULFATE 4 MG/ML INJ IV PUSH PRN ×2 (11:00)
[2017-05-20] MEDS ORDERED: ACETAMINOPHEN/HYDROcodone 325 MG/10 MG TAB PO PRN (11:00)
[2017-05-20] MEDS ORDERED: SODIUM CHLORIDE 0.9% FLUSH 5 ML FLUSH IVF PRN (11:00)
--- NOTE | 2017-05-20 11:04 | PD.OP ---
Operative Report Date of Surgery: May 20, 2017 Preoperative Diagnosis: T11 compression fracture Postoperative Diagnosis: T11 compression fracture Procedure: T11 kyphoplasty Anesthesia: general Surgeon: Dean Fernandez [employer] Operator(s): Libra Diop Operation and Findings: INDICATIONS FOR THE PROCEDURE Ms Norris is a 86 year-old female who presented with intractable pain related to a T11 compression fracture. She failed nonsurgical management and a kyphoplasty was indicated as the most appropriate form of treatment. The [id number] details of the procedure, indications, alternatives, risks and potential complications were fully discussed with the patient. The patient fully understood. All The questions were answered. No guarantees were given. The patient voiced requesting the procedure and provided informed consents. The patient was offered the alternative of delaying the procedure and continuing with nonsurgical management. DETAILS OF THE SURGICAL PROCEDURE The patient was brought to the operating room and after the induction of general anesthesia, endotracheal intubation was performed. A Ledesma catheter and bilateral CHRISTIANO hose and sequential compression devices were placed and kept throughout the procedure. The patient was positioned prone on the Dani table over gel rods. All pressure points were carefully padded with egg crate mattress. The eyes were tapped shut after ointment was applied by the anesthesiologist to prevent corneal abrasion. A Emily hugger was placed over the exposed lower body to maintain control of the core body temperature. The lumbar region was prepped and draped in the usual sterile fashion. The C-arms were brought to the field and simultaneous AP and lateral x-rays were obtained. The levels were carefully counted and the pedicles of T11 were marked over the skin. An entry point was selected 1 centimeter superior and 1 centimeter lateral to the pedicle. Two small incisions were outlined on the skin and infiltrated with 1% lidocaine with epinephrine in 1:100,000 dilution. Initially, two small skin incisions were made with a #11 blade. Then, Jamshidi needles were carefully advanced to the entrance of the pedicle of T11, and then into the vertebral body under continuous fluoroscopic guidance. K-wires were placed inside the vertebral body of and the needles were carefully removed. A drill was used to create a trough into the vertebral body to insert a cannula. Once the cannula was located through the pedicle, the drill was removed and bilateral balloons were inserted into the vertebral body for vertebral augmentation. A careful expansion of the balloon under continuous fluoroscopic guidance and manometric evaluation allowed expansion of the vertebral body. Then , the balloons were deflated and carefully removed and the voids created in the vertebral body were filled with bone cement under fluoroscopic visualization. A very good expansion of the vertebral bodies was achieved without evidence of extravasation or cement or other complications. The cannulas were then removed. The incisions were closed using a single stitch at each incision. Dermabond was applied to the skin. At the end of the procedure, the sponge, needle, instrument counts correct. The estimated blood loss as minimal. No intraoperative complications occurred. The patient received prophylactic antibiotics. The patient was then extubated and transferred to the recovery room in stable condition. Dean Fernandez MD May 20, 2017 11:04
[2017-05-20] MEDS: SODIUM CHLOR 0.9% 1000 ML INJ 1,000 ML IV SCH ×2 (11:07→21:07)
[2017-05-20] MEDS ORDERED: NS + KCL 20 MEQ INJ 1,000 ML ONE (11:09)
--- NOTE | 2017-05-20 11:34 | HHI.PR ---
Subjective Remarks Went for surgery. She was seen in her room after the surgery. patient appears in nad. Says sskody feels good and like she did not have surgery. Nasima perla is bothering. No pain at the surgical site. No numbness , good strength, Did not have a BM. Not sure if still bowel incontinent yet. No fever or chills. Objective Vitals Vital Signs Date Time Temp Pulse Resp B/P (MAP) Pulse Ox O2 Delivery O2 Flow Rate FiO2 05/20/17 10:24 97.5 96 20 197/93 (127) 95 Room Air 05/20/17 07:00 95.8 61 16 198/110 (139) 96 05/20/17 05:49 96.0 57 18 195/110 (138) 95 05/20/17 02:33 190/88 (122) 05/20/17 00:56 96.7 59 19 205/100 (135) 97 05/19/17 22:15 188/94 (125) 05/19/17 20:00 96.2 60 18 191/100 (130) 98 Automatic Cuff 05/19/17 18:13 95 21 05/19/17 16:00 97.2 66 17 163/102 (122) 95 05/19/17 12:00 96.0 58 17 162/87 (112) 96 I/O 05/19/17 05/19/17 05/19/17 05/20/17 05/20/17 05/20/17 07:00 15:00 23:00 07:00 15:00 23:00 Intake Total 0 ml 460 ml 240 ml 0 ml Balance 0 ml 460 ml 240 ml 0 ml Intake Oral 0 ml 460 ml 240 ml 0 ml # Voids 2 4 2 3 # Bowel Movements 0 2 1 1 Result Diagram: 05/19/17 0736 05/19/17 0736 Imaging Last Impressions Thoracolumbar Spine 05/20/17 0000 Signed Impressions: Service Date/Time: Saturday, May 20, 2017 09:49 - CONCLUSION: T11 kyphoplasty Christian Cole MD Thoracic Spine X-Ray 05/18/17 0000 Signed Impressions: Service Date/Time: Thursday, May 18, 2017 13:19 - CONCLUSION: 1. Age-indeterminate compression fracture through the superior endplate of T11. 2. Spinal stimulator enters the epidural space at T10 with the stimulator tip positioned posterior to T7-T9. Oren Fenton MD Objective Remarks GENERAL: This is a very pleasant 86-year-old female, well-nourished, well- developed patient, in no apparent distress. CARDIOVASCULAR: Regular rate and rhythm without murmurs, gallops, or rubs. RESPIRATORY: Clear to auscultation. Breath sounds equal bilaterally. No wheezes , rales, or rhonchi. GASTROINTESTINAL: Abdomen soft, non-tender, nondistended. No hepato-splenomegaly , or palpable masses. No guarding. MUSCULOSKELETAL: Extremities without clubbing, cyanosis, or edema. No joint tenderness, effusion, or edema noted. No calf tenderness. Negative Homans sign bilaterally. NEUROLOGICAL: Awake and alert. Cranial nerves II through XII intact. Motor and sensory grossly within normal limits. Five out of 5 muscle strength in all muscle groups. Normal speech. Procedures T11 kyphoplasty 05/20/[address] Fernandez A/P Assessment and Plan 86-year-old female with Compression fracture superior endplate T11 status post whole per week weeks ago now with bowel incontinence Seen by Dr. Fernandez, recommends surgery, s/p T11 kyphoplasty surgery 05/20. Patient received morphine in the emergency room by IV Patient pain management with by mouth medications and IV per pain scale Antiemetics. bowel prep as need Consult PT/ OT Hypertensive emergency. White coat hypertension BP mbetetr controlled. Monitor VS Blood pressure on admission 223/113 Restart medication from home atenolol IV hydralazine when necessary, PO hydralazine prn Chronic medical problems appear stable at this time. Restart home medications Case management consulted for discharge planning DVT prophylaxis SCD/teds, hold chemical prophylaxis at this time, as plan for surgery Discussed Condition With Patient, nurse, family at bedside S/p surgery by Dr Fernandez 05/20 Lalitha Reddy MD May 20, 2017 11:34
[2017-05-20] MEDS ORDERED: MIDAZOLAM HCL 2 MG/2 ML VIAL IV ONE (12:00)
[2017-05-20] MEDS ORDERED: METOPROLOL TARTRATE 5 MG/5 ML VIAL IV PUSH ONE (12:00)
[2017-05-20] MEDS ORDERED: ePHEDrine/NS 25 MG/5 ML SYR IV ONE (12:00)
[2017-05-20] MEDS ORDERED: ONDANSETRON HCL 4 MG/2 ML VIAL IV PUSH ONE (12:00)
[2017-05-20] MEDS ORDERED: GLYCOPYRROLATE 1 MG/5 ML SYRINGE IV PUSH ONE (12:00)
[2017-05-20] MEDS ORDERED: ROCURONIUM INJ 50 MG/5 ML SYRINGE IV PUSH ONE (12:00)
[2017-05-20] MEDS ORDERED: LIDOCAINE HCL 1% PF 5 ML AMPULE OTHER ONE (12:00)
[2017-05-20] MEDS ORDERED: PROPOFOL 200 MG/20 ML AMP IV ONE (12:00)
[2017-05-20] MEDS ORDERED: DEXAMETHASONE SOD PHOS 4 MG/ML VIAL IV ONE (12:00)
[2017-05-20] MEDS ORDERED: NEOSTIGMINE 3 MG/3 ML SYR IV ONE (12:00)
[2017-05-20] MEDS ORDERED: IOHEXOL 350 MG/ML 50 ML BTL (for RAD DIAG) OTHER ONE (13:13)
[2017-05-20] MEDS ORDERED: BUPIVACAINE/EPINEPHRINE 0.25% 50 ML VIAL INFIL ONE (14:00)
[2017-05-20] MEDS: FAMOTIDINE 20 MG TAB PO SCH ×2 (14:45→21:12)
[2017-05-20] MEDS: DOCUSATE SODIUM 50 MG/SENNA 8.6 MG TAB PO SCH ×2 (14:45→21:12)
[2017-05-20] MEDS: CHOLECALCIFEROL (VIT D3) 1000 UNIT TAB PO SCH (14:45)
[2017-05-20] MEDS: POLYETHYLENE GLYCOL 17 GM PKG PO SCH (14:47)
[2017-05-20] MEDS: ceFAZolin 2 GM PREMIX 50 ML IV SCH (16:00)
[2017-05-20] MEDS ORDERED: WITCH HAZEL 50%/GLYCERIN 12.5% 40 PAD JAR TOPICAL PRN (19:30)
[2017-05-20] MEDS ORDERED: HYDROCORTISONE ACETATE 25 MG SUPP RECTAL PRN (20:00)
[2017-05-20] MEDS ORDERED: DOCUSATE SODIUM 100 MG CAP PO SCH (21:00)
[2017-05-20] MEDS: CHLORHEXIDINE GLUCONATE 4% SOLN 120 ML BTL TOP SCH (21:10)
[2017-05-20] MEDS: GABAPENTIN 300 MG CAP PO SCH (21:12)
[2017-05-20] MEDS: SODIUM CHLORIDE 0.9% FLUSH 5 ML FLUSH IVF SCH (21:12)
[2017-05-21] MEDS: ceFAZolin 2 GM PREMIX 50 ML IV SCH ×2 (00:42→08:26)
[2017-05-21 00:45] VITALS: BP 180/80; PULSE 56; RESP 17; TEMP 96.6; O2SAT 97
[2017-05-21] MEDS: cloNIDine HCL 0.1 MG TAB PO PRN (00:56)
[2017-05-21 04:09] VITALS: BP 170/84; PULSE 59; RESP 17; TEMP 97.5; O2SAT 95
[2017-05-21] MEDS: SODIUM CHLOR 0.9% 1000 ML INJ 1,000 ML IV SCH (07:07)
[2017-05-21 08:00] VITALS: BP 188/90; PULSE 64; RESP 16; TEMP 97.6; O2SAT 96
[2017-05-21] MEDS: FAMOTIDINE 20 MG TAB PO SCH (08:27)
[2017-05-21] MEDS: ACETAMINOPHEN/HYDROcodone 325 MG/10 MG TAB PO PRN (08:27)
[2017-05-21] MEDS: POLYETHYLENE GLYCOL 17 GM PKG PO SCH (08:27)
[2017-05-21] MEDS: CHOLECALCIFEROL (VIT D3) 1000 UNIT TAB PO SCH (08:27)
[2017-05-21] MEDS: DOCUSATE SODIUM 50 MG/SENNA 8.6 MG TAB PO SCH (08:27)
[2017-05-21] MEDS: ATENOLOL 50 MG TAB PO SCH (08:27)
[2017-05-21] MEDS: SODIUM CHLORIDE 0.9% FLUSH 5 ML FLUSH IVF SCH (08:34)
[2017-05-21] MEDS ORDERED: PANTOPRAZOLE SOD 40 MG DELAYED RELEASE TAB PO SCH (09:00)
--- NOTE | 2017-05-21 10:55 | HHI.PR ---
Subjective Remarks Follow-up T11 compression fracture 05/21/17-patient seen and examined, denies any significance back pain. Able to ambulate. No bowel or bladder dysfunction. BP slightly up. Patient clear by neurosurgery for discharge Objective Vitals Vital Signs Date Time Temp Pulse Resp B/P (MAP) Pulse Ox O2 Delivery O2 Flow Rate FiO2 05/21/17 08:00 97.6 64 16 188/90 (122) 96 05/21/17 04:09 97.5 59 17 170/84 (112) 95 05/21/17 00:45 96.6 56 17 180/80 (113) 97 05/20/17 22:41 21 05/20/17 20:50 97.9 76 17 184/88 (120) 95 05/20/17 18:00 175/85 (115) 05/20/17 16:00 95.5 71 16 196/110 (138) 97 05/20/17 12:58 96 21 05/20/17 12:14 95.4 53 16 194/96 (128) 95 05/20/17 11:44 97.9 59 20 132/81 (98) 96 Room Air 05/20/17 11:30 59 20 132/81 (98) 96 Room Air 05/20/17 11:15 58 20 172/77 (108) 94 Room Air 05/20/17 11:00 64 20 183/85 (117) 96 Room Air I/O 05/20/17 05/20/17 05/20/17 05/21/17 05/21/17 05/21/17 07:00 15:00 23:00 07:00 15:00 23:00 Intake Total 0 ml 920 ml 240 ml 290 ml Output Total 1100 ml Balance 0 ml -180 ml 240 ml 290 ml Intake Oral 0 ml 720 ml 240 ml 240 ml IV Total 50 ml Other 200 ml Output Urine Total 1100 ml # Voids 3 3 4 3 # Bowel Movements 1 1 1 1 Result Diagram: 05/19/1736 05/19/1736 Imaging Last Impressions Thoracolumbar Spine 05/20/17 0000 Signed Impressions: Service Date/Time: Saturday, May 20, 2017 09:49 - CONCLUSION: T11 kyphoplasty Christian Cole MD Thoracic Spine X-Ray 05/18/17 0000 Signed Impressions: Service Date/Time: Thursday, May 18, 2017 13:19 - CONCLUSION: 1. Age-indeterminate compression fracture through the superior endplate of T11. 2. Spinal stimulator enters the epidural space at T10 with the stimulator tip positioned posterior to T7-T9. Oren Fenton MD Objective Remarks GENERAL: NAD SKIN: Warm and dry. HEAD: Normocephalic. EYES: No scleral icterus. No injection or drainage. NECK: Supple, trachea midline. No JVD or lymphadenopathy. CARDIOVASCULAR: Regular rate and rhythm without murmurs, gallops, or rubs. RESPIRATORY: Breath sounds equal bilaterally. No accessory muscle use. GASTROINTESTINAL: Abdomen soft, non-tender, nondistended. MUSCULOSKELETAL: No cyanosis, or edema. BACK: mildly tender without obvious deformity. No CVA tenderness. TLSO brace in place Procedures T11 kyphoplasty 05/20/[address] Fernandez A/P Problem List: (1) Compression fracture of thoracic vertebra ICD Code: S22.000A - Wedge compression fracture of unspecified thoracic vertebra, initial encounter for closed fracture (2) Benign labile hypertension ICD Code: I10 - Essential (primary) hypertension Assessment and Plan 86-year-old female with T11 compression fracture Status post kyphoplasty Management per neurosurgery Pain management accordingly PT treat and eval Benign labile hypertension Atenolol 50 mg daily When necessary hydralazine, Vasotec Hep-Lock IV fluid History of hemorrhoid Continue current treatment DVT prophylaxis: Bilateral SCDs Andrzej Kessler MD May 21, 2017 10:55
--- NOTE | 2017-05-21 11:00 | HHI.DS ---
Discharge Summary Admission Date May 18, 2017 at 13:28 Discharge Date: May 21, 2017 Admitting Diagnosis compression fracture, intractable pain (1) Compression fracture of thoracic vertebra ICD Code: S22.000A - Wedge compression fracture of unspecified thoracic vertebra, initial encounter for closed fracture (2) Benign labile hypertension ICD Code: I10 - Essential (primary) hypertension Procedures T11 kyphoplasty 05/20/[address] Fernandez Brief History - From Admission Patient is a very pleasant 86-year-old female with past medical history of hypertension, vitamin D deficiency, recent fall approximately 5 weeks ago who came to the emergency room for reevaluation of back pain. Patient says she has back pain sometimes radiating to her buttocks, however she was able to manage the pain at home with pain medications until yesterday. Says for the past to 3 days she has bowel incontinence which is new. There is no paresthesia. She can walk without difficulty. Was seen by a neurosurgeon who recommended inpatient admission and plans for surgery tomorrow morning. The patient also noted with elevated blood pressure, she had headaches on admission. Patient says she has high blood pressure when she goes to the hospital for Dr. franklin. She denies headaches at this time for back pain however she received morphine the emergency room. Denies nausea, vomiting, diarrhea or constipation. She has bowel incontinence. Denies fever or chills. CBC/BMP: 05/19/17 0736 05/19/17 0736 Significant Findings Laboratory Tests Test 05/18/17 12:40 05/19/17 07:36 Neutrophils (%) (Auto) 80.7 % (16.0-70.0) Lymphocytes # (Auto) 0.9 TH/MM3 (1.0-4.8) Calcium Level 10.3 MG/DL (8.5-10.1) 10.2 MG/DL (8.5-10.1) Sodium Level 133 MEQ/L (136-145) 132 MEQ/L (136-145) Chloride Level 97 MEQ/L (98-107) 96 MEQ/L (98-107) Estimat Glomerular Filtration Rate 55 ML/MIN (>89) 65 ML/MIN (>89) Mean Platelet Volume 6.7 FL (7.0-11.0) Monocytes (%) (Auto) 9.0 % (0.0-8.0) Potassium Level 3.4 MEQ/L (3.5-5.1) Imaging Last Impressions Thoracolumbar Spine 05/20/17 0000 Signed Impressions: Service Date/Time: Saturday, May 20, 2017 09:49 - CONCLUSION: T11 kyphoplasty Christian Cole MD Thoracic Spine X-Ray 05/18/17 0000 Signed Impressions: Service Date/Time: Thursday, May 18, 2017 13:19 - CONCLUSION: 1. Age-indeterminate compression fracture through the superior endplate of T11. 2. Spinal stimulator enters the epidural space at T10 with the stimulator tip positioned posterior to T7-T9. Oren Fenton MD PE at Discharge GENERAL: NAD SKIN: Warm and dry. HEAD: Normocephalic. EYES: No scleral icterus. No injection or drainage. NECK: Supple, trachea midline. No JVD or lymphadenopathy. CARDIOVASCULAR: Regular rate and rhythm without murmurs, gallops, or rubs. RESPIRATORY: Breath sounds equal bilaterally. No accessory muscle use. GASTROINTESTINAL: Abdomen soft, non-tender, nondistended. MUSCULOSKELETAL: No cyanosis, or edema. BACK: mildly tender without obvious deformity. No CVA tenderness. TLSO brace in place Hospital Course Patient admitted secondary to T11 compression fracture for which neurosurgery was consulted and she underwent kyphoplasty. Postoperatively, pain was controlled accordingly and physical therapy was consulted. She was continued on her treatment for hypertension and was given when necessary's hydralazine and Vasotec. DVT and GI prophylaxis were provided. Prior to discharge, patient 's condition improved. Pt Condition on Discharge: Stable Discharge Disposition: Discharge Home Discharge Time: <= 30 minutes Discharge Instructions DIET: Follow Instructions for: Heart Healthy Diet Follow up Referrals: Neurosurgery PCP Follow-up - 1 Week New Medications: Sennosides-Docusate Sodium (Ynes-Colace) 8.6-50 Mg Tab 1 TAB PO BID for Constipation, #20 TAB 0 Refills Hydrocodone-Acetaminophen (Hydrocodone-Acetaminophen) 10-325 mg Tab 1 TAB PO Q4H PRN for PAIN SCALE 1 TO 5, #30 TAB Continued Medications: Atenolol (Atenolol) 50 Mg Tab 50 MG PO DAILY for Blood Pressure Management, #30 TAB 0 Refills Biotin (Biotin) 1,000 Mcg Tab 1000 MG PO DAILY, #1 BOTTLE Ergocalciferol (Vitamin D2) 2,000 Unit Tab 2000 UNITS PO DAILY for Nutritional Supplement, TAB 0 Refills Gabapentin (Gabapentin) 300 Mg Cap 300 MG PO HS, #30 CAP 0 Refills Krill Oil (Krill Oil) 1,000 Mg Cap 1000 MG PO DAILY, CAP Multiple Vitamins W/ Minerals (Centrum Silver) 1 Chw Chw Ondansetron Odt (Zofran Odt) 4 Mg Tab 4 MG SL Q6HR PRN for Nausea/Vomiting, #7 TAB 0 Refills Polyethylene Glycol 3350 Powder (Miralax Powder) 17 Gm Powd 17 GM PO DAILY for Constipation, #1 CAN 0 Refills Mix and dissolve one measuring cap-ful (17 grams) in water or juice. Ranitidine (Ranitidine) 150 Mg Tab 150 MG PO BID for Heartburn Management, #60 TAB 0 Refills Discontinued Medications: Oxycodone-Acetaminophen (Percocet) 5-325 mg Tab 1-2 TAB PO Q4H PRN for PAIN, #30 TAB 0 Refills Andrzej Kessler MD May 21, 2017 11:00
[2017-05-21] MEDS ORDERED: HYDR-3583 PO (11:02)
[2017-05-21] MEDS ORDERED: PERI8.6T PO (11:02)
--- NOTE | 2017-05-21 11:15 | HHI.NSPN ---
(Bella Thompson) Note Status Status: Progress Note (Bella Thompson) Interval History Interval History s/p T11 Kyphoplasty 05/20/17, doing well, significant improvement of thoracic pain. ambulating, ready to go home (Bella Thompson) Labs, Micro, & Vital Signs Results Date Time Temp Pulse Resp B/P (MAP) Pulse Ox O2 Delivery O2 Flow Rate FiO2 05/21/17 08:00 97.6 64 16 188/90 (122) 96 05/21/17 04:09 97.5 59 17 170/84 (112) 95 05/21/17 00:45 96.6 56 17 180/80 (113) 97 05/20/17 22:41 21 05/20/17 20:50 97.9 76 17 184/88 (120) 95 05/20/17 18:00 175/85 (115) 05/20/17 16:00 95.5 71 16 196/110 (138) 97 05/20/17 12:58 96 21 05/20/17 12:14 95.4 53 16 194/96 (128) 95 05/20/17 11:44 97.9 59 20 132/81 (98) 96 Room Air 05/20/17 11:30 59 20 132/81 (98) 96 Room Air 05/20/17 11:15 58 20 172/77 (108) 94 Room Air Constitutional Vital Signs Date Time Temp Pulse Resp B/P (MAP) Pulse Ox O2 Delivery O2 Flow Rate FiO2 05/21/17 08:00 97.6 64 16 188/90 (122) 96 05/21/17 04:09 97.5 59 17 170/84 (112) 95 05/21/17 00:45 96.6 56 17 180/80 (113) 97 05/20/17 22:41 21 05/20/17 20:50 97.9 76 17 184/88 (120) 95 05/20/17 18:00 175/85 (115) 05/20/17 16:00 95.5 71 16 196/110 (138) 97 05/20/17 12:58 96 21 05/20/17 12:14 95.4 53 16 194/96 (128) 95 05/20/17 11:44 97.9 59 20 132/81 (98) 96 Room Air 05/20/17 11:30 59 20 132/81 (98) 96 Room Air 05/20/17 11:15 58 20 172/77 (108) 94 Room Air (Bella Thompson) Review of Systems Constitutional: DENIES: Fever Eyes: DENIES: Diplopia Respiratory: DENIES: Wheezing, Hemoptysis, Shortness of breath Cardiovascular: DENIES: Chest pain Gastrointestinal: DENIES: Abdominal pain, Nausea, Vomiting Musculoskeletal: COMPLAINS OF: Back pain (minimal, improved) Neurologic: DENIES: Localized weakness, Paresthesias (Bella Thompson) Physical Exam Ms. Albarran is alert, awake and oriented to time, place and person. Speech is fluent. Surgical wound clean, dry Cranial nerve examination: pupils equal, round and reactive to light. Extra- ocular movements are intact. Facial motor symmetric. Neck is soft and supple Muscle strength is normal in all muscle groups of both upper and lower extremities. Sensory examination is intact to light touch in both the upper and lower extremities. There is a bilateral plantar flexion response. Gait: ambulating, no ataxia seen (Bella Thompson) Medications Current Medications Current Medications Medications (Trade) Dose Ordered Sig/Vaughn Route PRN Reason Start Time Stop Time Status Last Admin Dose Admin Acetaminophen (Tylenol) 650 mg Q4H PRN PO TEMP > 100.4 05/18/17 13:30 Ondansetron HCl (Zofran Inj) 4 mg Q6H PRN IVP NAUSEA OR VOMITING 05/18/17 13:30 Senna/Docusate Sodium (Ynes-Colace) 1 tab BID PO 05/18/17 21:00 05/21/17 08:27 Magnesium Hydroxide (Milk Of Magnesia Liq) 30 ml Q12H PRN PO MILD - MODERATE CONSTIPATION 05/18/17 13:30 Sennosides (Senokot) 17.2 mg Q12H PRN PO MODERATE - SEVERE CONSTIPATION 05/18/17 13:30 Bisacodyl (Dulcolax Supp) 10 mg DAILY PRN RECTAL SEVERE CONSITIPATION 05/18/17 13:30 Lactulose (Lactulose Liq) 30 ml DAILY PRN PO SEVERE CONSITIPATION 05/18/17 13:30 Naloxone HCl (Narcan Inj) 0.4 mg UNSCH PRN IV PUSH SEE LABEL COMMENTS 05/18/17 13:30 Atenolol (Tenormin) 50 mg DAILY PO 05/19/17 09:00 05/21/17 08:27 Gabapentin (Neurontin) 300 mg HS PO 05/18/17 21:00 05/20/17 21:12 Ondansetron HCl (Zofran Odt) 4 mg Q6H PRN SL Nausea/Vomiting 05/18/17 13:30 Polyethylene Glycol (Miralax) 17 gm DAILY PO 05/19/17 09:00 05/21/17 08:27 Cholecalciferol (Vitamin D3) 1,000 units DAILY PO 05/19/17 09:00 05/21/17 08:27 Famotidine (Pepcid) 10 mg BID PO 05/18/17 21:00 05/21/17 08:27 Miscellaneous (Pill Splitter) 1 ea UNSCH PRN OTHER SEE LABEL COMMENTS 05/18/17 14:00 Hydralazine HCl (Apresoline Inj) 20 mg Q4H PRN IV PUSH SBP>160, DBP>90 05/18/17 16:15 Hydralazine HCl (Apresoline) 10 mg Q6HR PRN PO SBP>160, DBP>90 05/18/17 16:15 05/20/17 19:18 Clonidine (Catapres) 0.1 mg Q6H PRN PO SBP>180, DBP>100, HR>65 05/18/17 16:15 05/21/17 00:56 Sodium Chloride 1,000 ml @ 100 mls/hr Q10H IV 05/19/17 15:07 IV Flush (NS Flush) 2 ml UNSCH PRN IVF FLUSH AFTER USING IV ACCESS 05/20/17 11:00 IV Flush (NS Flush) 2 ml BID IVF 05/20/17 21:00 05/21/17 08:34 Pantoprazole Sodium (Protonix) 40 mg DAILY PO 05/21/17 09:00 05/21/17 08:27 Acetaminophen/ Hydrocodone Bitart (Strong 10-325 Mg) 1 tab Q4H PRN PO PAIN SCALE 1 TO 5 05/20/17 11:00 05/21/17 08:27 Acetaminophen/ Hydrocodone Bitart (Strong 10-325 Mg) 2 tab Q4H PRN PO PAIN SCALE 6 TO 10 05/20/17 11:00 Morphine Sulfate (Morphine Inj) 2 mg Q2H PRN IV PUSH PAIN SCALE 1 TO 6 05/20/17 11:00 Morphine Sulfate (Morphine Inj) 4 mg Q2H PRN IV PUSH PAIN SCALE 7 TO 10 05/20/17 11:00 Acetaminophen (Tylenol) 650 mg Q4H PRN PO TEMPERATURE > 101.5 F 05/20/17 11:00 Hydrocortisone Acetate (Hemorrhoidal Hc Supp) 25 mg BID PRN RECTAL hemorrhoids 05/20/17 20:00 Witch Poonam/ Glycerin (Tucks Pads) 1 applic UNSCH PRN TOPICAL HEMORRHOIDS 05/20/17 19:30 (Bella Thompson) Medical Decision Making MDM Remarks 86 y/o female s/p T11 Kyphoplasty for T11 compression fracture with significant improvement of thoracic pain (Bella Thompson) Plan Plan Remarks neuro stable, clear to dc home from NRS standpoint back brace when OOB, dw the do's and dont's, avoid falls, f/u Dr. Fernandez office in 3 weeks (Bella Thompson) Attending Statement The exam, history, and the medical decision-making described in the above note were completed with the assistance of the mid-level provider. I reviewed and agree with the findings presented. I attest that I had a [id number] encounter with the patient on the same day, and personally performed and documented my assessment and findings in the medical record. (Dean Fernandez MD) Bella Thompson May 21, 2017 11:15 Dean Fernandez MD May 21, 2017 22:32
[2017-05-21 11:20] VITALS: O2SAT 99
[2017-06-06] MEDS ORDERED: TIZA2TAB (14:51)
[2017-06-06] MEDS ORDERED: ALPR0.25 (14:51)
[2017-06-06] MEDS ORDERED: OMEP20CA2 (14:51)
== END 2017-05-21 13:38 | DRG 516 ==
LOC: NEPE 11:26 → NEDA 13:28 → N06B 16:21 → N06A 05-20 19:15
PROVIDERS: ADMIT Hospitalist; ATTEND Hospitalist
PROC: 0PU43JZ Supplement Thoracic Vertebra with Synthetic Substitute, Percutaneous Approach (ICD-10-PCS; 2017-05-20)
PROC: 0PS43ZZ Reposition Thoracic Vertebra, Percutaneous Approach (ICD-10-PCS; principal; 2017-05-20 08:18)
DX: S22.010A Wedge compression fracture of first thoracic vertebra, initial encounter for closed fracture (principal); I16.1 Hypertensive emergency; R15.9 Full incontinence of feces; E55.9 Vitamin D deficiency, unspecified; Z96.643 Presence of artificial hip joint, bilateral; Z87.891 Personal history of nicotine dependence; M25.78 Osteophyte, vertebrae; W19.XXXA Unspecified fall, initial encounter; Y93.9 Activity, unspecified
CPT/HCPCS: 72070; 72072; 80048; 80053; 85025; 85610; 85730; 94150; 96374; J0690; J1100; J2250; J2270; J2405; J2710; J3010; J3370; J3480; J7050; L0627; Q9967

== ENCOUNTER 2017-06-13 12:59 | Inpatient (IN) | payer OTHER, MEDICARE ==
[~2017-06-13] VITALS: Ht 152.4 cm; Wt 54.0 kg
[~2017-06-13 12:59] MED LIST changes: +ALPR0.25; +ATEN50TA PO; +GABA300C5 PO; +HYDR-3583 PO; +OMEP20CA2; -PERC5TAB12 PO; +PERI8.6T PO; +TIZA2TAB
[2017-06-13 13:02] VITALS: BP 174/114; PULSE 82; RESP 16; TEMP 97.9; O2SAT 93
--- NOTE | 2017-06-13 15:13 | PD ---
HPI Chief Complaint: GI Complaint Time Seen by Provider: 15:12 Travel History International Travel<30 days: No Contact w/Intl Traveler<30days: No Traveled to known affect area: No History of Present Illness HPI 86-year-old female presents the emergency department with decreased appetite, and increasing epigastric pain and cramping with black tarry stools for the past couple of weeks. Patient was referred to [facility] for gastroenterology. Patient had an appointment today but came here instead as her symptoms have been worsening. History of recent spinal surgery by Dr. Fernandez for lower extremity radicular symptoms and bladder incontinence which the patient and say have not improved. They were supposedly released from his care about a week ago. Patient was seen by her PCP for this issue and referred to the service architect. Patient feels worse today with her pain is about a 6 out of 10 and generalized weakness and worsening "black tarry stools" . Patient denies fever, chills, or other symptoms. Patient is allergic to nifedipine. PFSH Past Medical History Hx Anticoagulant Therapy: Yes Anxiety: Yes Cardiovascular Problems: Yes Diminished Hearing: No Endocrine: No GERD: Yes Hypertension: Yes ?: Not : 3 Para: 3 Past Surgical History Joint Replacement: Yes (bilateral hips) Social History Alcohol Use: Yes (wine nightly) Tobacco Use: No (20 years ago) Substance Use: No (pt denies) Allergies-Medications (Allergen,Severity, Reaction): Coded Allergies: nifedipine (Verified Allergy, Severe, Swelling, 06/13/17) Reported Meds & Prescriptions Reported Meds & Active Scripts Active Ynes-Colace (Sennosides-Docusate Sodium) 8.6-50 Mg Tab 1 Tab PO BID Hydrocodone-Acetaminophen 10-325 mg Tab 1 Tab PO Q4H PRN Reported Omeprazole 20 Mg Cap Alprazolam 0.25 Mg Tab Gabapentin 300 Mg Cap 300 Mg PO HS Atenolol 50 Mg Tab 50 Mg PO DAILY Centrum Silver (Multiple Vitamins W/ Minerals) 1 Chw Chw Vitamin D2 (Ergocalciferol) 2,000 Unit Tab 2,000 Units PO DAILY Biotin 1,000 Mcg Tab 1,000 Mg PO DAILY Krill Oil 1,000 Mg Cap 1,000 Mg PO DAILY Review of Systems Except as stated in HPI: all other systems reviewed are Neg General / Constitutional: No: Fever Eyes: No: Visual changes HENT: No: Headaches Cardiovascular: No: Chest Pain or Discomfort Respiratory: No: Shortness of Breath Gastrointestinal: No: Abdominal Pain Genitourinary: No: Dysuria Musculoskeletal: No: Pain Skin: No Rash Neurologic: No: Weakness Psychiatric: No: Depression Endocrine: No: Polydipsia Hematologic/Lymphatic: No: Easy Bruising Physical Exam Narrative GENERAL: Patient appears in no obvious distress. SKIN: Warm and dry. Patient has decreased pallor. And decreased turgor. HEAD: Atraumatic. Normocephalic. EYES: Pupils equal and round. No scleral icterus. No injection or drainage. Moderate bilateral conjunctival pallor. ENT: No nasal bleeding or discharge. Mucous membranes pink and moist. Pharynx is clear. Airway is patent. NECK: Trachea midline. Supple nontender. CARDIOVASCULAR: Regular rate and rhythm. RESPIRATORY: No accessory muscle use. Clear to auscultation. Breath sounds equal bilaterally. GASTROINTESTINAL: Abdomen soft, moderate central epigastric tenderness, nondistended. No rebound. No CVA tenderness. Hepatic and splenic margins not palpable. Guaiac is mildly positive with dark soft stool. MUSCULOSKELETAL: Extremities without clubbing, cyanosis, or edema. No obvious deformities. NEUROLOGICAL: Awake and alert. No obvious cranial nerve deficits. Motor grossly within normal limits. Five out of 5 muscle strength in the arms and legs. Normal speech. PSYCHIATRIC: Appropriate mood and affect; insight and judgment normal. Data Data Last Documented VS Vital Signs Date Time Temp Pulse Resp B/P (MAP) Pulse Ox O2 Delivery O2 Flow Rate FiO2 06/13/17 13:02 97.9 82 16 174/114 (134) 93 Orders Orders Complete Blood Count With Diff (06/13/17 15:) Comprehensive Metabolic Panel (06/13/17:) Lipase (06/13/17 15:) Prothrombin Time / Inr (Pt) (06/13/17:) Act Partial Throm Time (Ptt) (06/13/17:) Urinalysis - C+S If Indicated (06/13/17 15:) Ct Abd/Pel W Iv Contrast(Rout) (06/13/17 15:26) Iv Access Insert/Monitor (06/13/17:) Ecg Monitoring (06/13/17:) Oximetry (10/16/17 15:26) Ondansetron Inj (Zofran Inj) (06/13/17 15:30) Pantoprazole Inj (Protonix Inj) (06/13/17 15:30) Sodium Chloride 0.9% Flush (Ns Flush) (06/13/17 15:30) Electrocardiogram (06/13/17 15:26) Al-Mag Hy-Si 40-40-4 Mg/Ml Liq (Mag-Al P (06/13/17 15:30) Lidocaine 2% Viscous (Xylocaine 2% Visco (06/13/17 15:30) Sodium Chlorid 0.9% 500 Ml Inj (Ns 500 M (06/13/17 15:30) Labs Laboratory Tests Test 06/13/17 15:30 06/13/17 16:45 White Blood Count 10.6 TH/MM3 Red Blood Count 4.27 MIL/MM3 Hemoglobin 13.3 GM/DL Hematocrit 37.2 % Mean Corpuscular Volume 87.2 FL Mean Corpuscular Hemoglobin 31.1 PG Mean Corpuscular Hemoglobin Concent 35.7 % Red Cell Distribution Width 12.8 % Platelet Count 343 TH/MM3 Mean Platelet Volume 8.1 FL Neutrophils (%) (Auto) 76.7 % Lymphocytes (%) (Auto) 9.9 % Monocytes (%) (Auto) 13.1 % Eosinophils (%) (Auto) 0.2 % Basophils (%) (Auto) 0.1 % Neutrophils # (Auto) 8.1 TH/MM3 Lymphocytes # (Auto) 1.1 TH/MM3 Monocytes # (Auto) 1.4 TH/MM3 Eosinophils # (Auto) 0.0 TH/MM3 Basophils # (Auto) 0.0 TH/MM3 CBC Comment DIFF FINAL Differential Comment Prothrombin Time 9.9 SEC Prothromb Time International Ratio 0.9 RATIO Activated Partial Thromboplast Time 29.3 SEC Blood Urea Nitrogen 12 MG/DL Creatinine 0.66 MG/DL Random Glucose 96 MG/DL Total Protein 7.7 GM/DL Albumin 3.1 GM/DL Calcium Level 11.0 MG/DL Alkaline Phosphatase 128 U/L Aspartate Amino Transf (AST/SGOT) 75 U/L Alanine Aminotransferase (ALT/SGPT) 89 U/L Total Bilirubin 0.7 MG/DL Sodium Level 121 MEQ/L Potassium Level 3.5 MEQ/L Chloride Level 83 MEQ/L Carbon Dioxide Level 28.3 MEQ/L Anion Gap 10 MEQ/L Estimat Glomerular Filtration Rate 85 ML/MIN Lipase 81 U/L Urine Color YELLOW Urine Turbidity HAZY Urine pH 7.0 Urine Specific Orange 1.013 Urine Protein 30 mg/dL Urine Glucose (UA) NEG mg/dL Urine Ketones 10 mg/dL Urine Occult Blood NEG Urine Nitrite NEG Urine Bilirubin NEG Urine Urobilinogen 2.0 MG/DL Urine Leukocyte Esterase NEG Urine RBC 1 /hpf Urine WBC 3 /hpf Urine Squamous Epithelial Cells <1 /hpf Urine Amorphous Sediment RARE Urine Mucus FEW /lpf Microscopic Urinalysis Comment CULT NOT INDICATED MDM Medical Decision Making Medical Screen Exam Complete: Yes Emergency Medical Condition: Yes Medical Record Reviewed: Yes Differential Diagnosis Upper GI bleed. Gastritis. Anemia. Narrative Course Patient is medically stable at time of exam. CT of the abdomen and pelvis is ordered with IV contrast. Laboratory including CBC, CMP, coagulation studies, and urinalysis. Patient is given 500 mils normal saline bolus. Patient is given Zofran 4 mg IV as well as 40 mg pantoprazole IV. Patient is given a GI cocktail by mouth. Urinalysis is unremarkable. CBC is unremarkable. CMP is remarkable for sodium of 121, chloride of 83, calcium is 11.0, AST 75, ALT 89, alkaline phosphatase is 128. Albumin is 3.1. Lipase is normal at 81. Coagulation studies are normal. Patient is given an additional 500 mL of normal saline bolus. CT is pending. Patient will be admitted for her hyponatremia with GI consult. Will add chest x-ray and troponin per Dr. Hernandes. Patient discussed with Dr. Li who agrees to admit the patient. CT is still pending. Diagnosis Primary Impression: Acute hyponatremia Additional Impression: Epigastric abdominal pain Admitting Information Admitting Physician Requests: Admit Condition: Stable Joni Jones Jun 13, 2017 15:13
[2017-06-13] MEDS ORDERED: LIDOCAINE VISCOUS 2% SOLN 15 ML UDC PO ONE (15:30)
[2017-06-13] MEDS ORDERED: SODIUM CHLORID 0.9% 500 ML INJ 500 ML IV ONE (15:30)
[2017-06-13] MEDS ORDERED: SODIUM CHLORIDE 0.9% FLUSH 10 ML FLUSH IV FLUSH PRN ×2 (15:30→19:00)
[2017-06-13] MEDS ORDERED: PANTOPRAZOLE SODIUM 40 MG VIAL IVP ONE (15:30)
[2017-06-13] MEDS ORDERED: ALUMINUM/MAGNESIUM/SIMETH 30 ML CUP PO ONE (15:30)
[2017-06-13] MEDS ORDERED: ONDANSETRON HCL 4 MG/2 ML VIAL IVP ONE (15:30)
[2017-06-13 17:27] LABS: AUTOMATED NEUTROPHIL # 8.1 TH/MM3 (1.8-7.7); BASOPHIL % 0.1 % (0.0-2.0); EOSINOPHIL % 0.2 % (0.0-4.0); HEMATOCRIT 37.2 % (35.0-46.0); HEMO FLAGS DIFF FINAL; LYMPH % 9.9 % (9.0-44.0); LYMPHOCYTE # 1.1 TH/MM3 (1.0-4.8); MEAN CELL VOLUME 87.2 FL (80.0-100.0); MEAN CORPUSCULAR HEMOGLOBIN 31.1 PG (27.0-34.0); MEAN CORPUSCULAR HGB CONC 35.7 % (32.0-36.0); MONO % 13.1 % (0.0-8.0); NEUT % 76.7 % (16.0-70.0); PLATELET COUNT 343 TH/MM3 (150-450); RED BLOOD COUNT 4.27 MIL/MM3 (4.00-5.30); RED CELL DISTRIBUTION WIDTH 12.8 % (11.6-17.2); WHITE BLOOD COUNT 10.6 TH/MM3 (4.0-11.0)
[2017-06-13 17:31] LABS: BLOOD, URINE NEG (NEG); COMMENT (UR) CULT NOT INDICATED; CULTURE IF INDICATED CULT NOT INDICATED; GLUCOSE,URINE NEG (NEG); KETONE, URINE 10 mg/dL (NEG); MUCUS URINE FEW /lpf (OCC); NITRITE,URINE NEG (NEG); SQUAMOUS EPITHELIAL CELL URINE <1 /hpf (0-5); URINE COLOR YELLOW (YELLW/STRAW)
[2017-06-13 17:37] LABS: APTT (PATIENT) 29.3 SEC (24.3-30.1); INTERNATIONAL NORMALIZED RATIO 0.9 RATIO; PROTHROMBIN TIME - PATIENT 9.9 SEC (9.8-11.6)
[2017-06-13 17:53] LABS: ALKALINE PHOSPHATASE 128 U/L (45-117); ALT (GPT) 89 U/L (10-53); ANION GAP 10 MEQ/L (5-15); AST (GOT) 75 U/L (15-37); BICARBONATE 28.3 MEQ/L (21.0-32.0); BLOOD UREA NITROGEN 12 MG/DL (7-18); CHLORIDE 83 MEQ/L (98-107); GLOMERULAR FILTRATION RATE 85 ML/MIN (>89); POTASSIUM 3.5 MEQ/L (3.5-5.1); TOTAL BILIRUBIN ADULT 0.7 MG/DL (0.2-1.0)
[2017-06-13 18:03] LABS: SODIUM (NA) 121 MEQ/L (136-145)
[2017-06-13] MEDS ORDERED: SODIUM CHLOR 0.9% 1000 ML INJ 1,000 ML IV SCH (18:55)
[2017-06-13 19:00] VITALS: BP 169/72; PULSE 72; RESP 18; O2SAT 95
[2017-06-13] MEDS ORDERED: ONDANSETRON HCL 4 MG/2 ML VIAL IVP PRN (19:00)
[2017-06-13] MEDS ORDERED: NALOXONE HCL 0.4 MG/ML AMP IV PUSH PRN (19:00)
[2017-06-13] MEDS ORDERED: MAGNESIUM HYDROXIDE SUSP 30 ML CUP PO PRN (19:00)
--- NOTE | 2017-06-13 19:07 | RADRPT ---
EXAM DATE/TIME: 06/13/2017 18:54 [facility] COMPARISON: SPINE THORACOLUMBAR (AP&LAT), May 20, 2017, 9:49. CHEST SINGLE AP, May 11, 2017, 0:27. INDICATIONS : Chest pain. MEDICAL HISTORY : Gastroesophageal reflux disease. Hypertension. SURGICAL HISTORY : Bilateral hip replacements. Pain pump. ENCOUNTER: Initial ACUITY: 1 day PAIN SCORE: Non-responsive. LOCATION: Bilateral chest FINDINGS: A single view of the chest demonstrates the lungs to be symmetrically aerated without evidence of mas s, infiltrate or effusion. The cardiomediastinal contours are unremarkable with atherosclerotic schultz ges of the aorta.. Osseous structures are intact. Stimulator wires again overlie the thoracic spine and there is apparent interrum kyphoplasty probably T11 or T12. CONCLUSION: No acute disease. Interrum kyphoplasty one lower thoracic vertebral bodies probably T. 11 Christian Cole MD on June 13, 2017 at 19:04 Board Certified Radiologist. This report was verified electronically.
[2017-06-13] MEDS ORDERED: IOHEXOL 350 MG/ML 10 ML VIAL (for RAD DIAG) IVCONTRAST ONE (19:10)
--- NOTE | 2017-06-13 19:36 | RADRPT ---
EXAM DATE/TIME: 06/13/2017 19:05 [facility] COMPARISON: CT ABDOMEN & PELVIS W CONTRAST, February 24, 2017, 15:06. CT ABDOMEN & PELVIS W CONTRAST, March 25, 2017, 11:52. INDICATIONS : Medial abdominal pain. IV CONTRAST: 80 cc Omnipaque 350 (iohexol) IV ORAL CONTRAST: No oral contrast ingested. RADIATION DOSE: 6.47 CTDIvol (mGy) MEDICAL HISTORY : Hypertension. SURGICAL HISTORY : Pain stimulator. Bilateral hip replacements. ENCOUNTER: Initial ACUITY: 3 months PAIN SCALE: 6/10 LOCATION: medial abdomen TECHNIQUE: Volumetric scanning of the abdomen and pelvis was performed. Using automated exposure control and ad justment of the mA and/or kV according to patient size, radiation dose was kept as low as reasonably achievable to obtain optimal diagnostic quality images. DICOM format image data is available electro nically for review and comparison. FINDINGS: Bony structures again demonstrate scoliosis of lumbar spine to the right with multiple Spot levels of degenerative disc disease and facet arthritic change as well as stimulator in place. There is an dai arent kyphoplasty of one thoracic bodies which is in the antrum finding. There are bilateral total hi p prostheses in place bilateral renal cysts are again appreciated with no change in liver spleen gall bladder and bile ducts as well as pancreas appear normal with benign bowel distribution no evidence o f free air or free fluid. Vascular calcifications are appreciated without evidence of aneurysm. On the upper images of the lung patient d eveloped a small area consolidation adjacent to the aorta which was not captured or imaged on the jose roberto or study along the medial aspect of the thoracic aorta again an area not covered on prior examination suggestion of thickening of the lower thoracic aortic wall and possible subtle dissection which may be chronic. CONCLUSION: Intra-abdominal contents are unchanged with no acute intra-abdominal or pelvic process. The highest images in the chest suggesting there is c onsolidation adjacent to the aorta and possible chronic section of the lower thoracic aorta at this a bebo not being imaged on prior studies. Clinical correlation recommended. Christian Cole MD on June 13, 2017 at 19:26 Board Certified Radiologist. This report was verified electronically.
[2017-06-13 20:00] VITALS: BP 197/92; PULSE 71; RESP 18; TEMP 97.8; O2SAT 96
[2017-06-13] MEDS ORDERED: ENOXAPARIN SODIUM 40 MG/0.4 ML SYRINGE SQ SCH (20:00)
[2017-06-13] MEDS: PANTOPRAZOLE SOD 40 MG DELAYED RELEASE TAB PO SCH (20:05)
[2017-06-13] MEDS: SODIUM CHLORIDE 0.9% FLUSH 10 ML FLUSH IV FLUSH SCH (20:05)
[2017-06-13 22:38] LABS: HEMATOCRIT 37.7 % (35.0-46.0); REVIEW FLAG FINAL
[2017-06-13 23:00] LABS: BICARBONATE 29.9 MEQ/L (21.0-32.0); POTASSIUM 3.1 MEQ/L (3.5-5.1)
[2017-06-13] MEDS ORDERED: POTASSIUM CHLORIDE 25 MEQ EFFERVESCENT TAB PO ONE (23:30)
[2017-06-13] MEDS: SODIUM CHLOR 0.9% 1000 ML INJ 1,000 ML IV SCH (23:38)
[2017-06-13] MEDS: ENALAPRILAT 2.5 MG/2 ML VIAL IV PUSH PRN (23:50)
[2017-06-14] VITALS (8 sets, daily range): BP systolic 170–217; BP diastolic 91–106; PULSE 74–83; RESP 18–20; TEMP 97.3–98.2; O2SAT 95–97
--- NOTE | 2017-06-14 03:42 | HHI.HP ---
HPI Service [facility] Primary Care Physician Sandy Merchant Do, MD Admission Diagnosis Hyponatremia/Epigastric pain Diagnoses: Travel History International Travel<30 Days: No Contact w/Intl Traveler <30 Da: No Traveled to Known Affected Are: No History of Present Illness Hx from patient's , pt herself, ER notes and review of medical records black stools for about 2 weeks was c/o pain then no nause no vomiting no diarrhea, just regular hard stool that is black no fever no chest pain or palp or shortness of breath no blood very weak in legs, get more and more confused as the days go on - also for about 3 weeks fell twice in this 3 weeks had kypohplasty with Dr Fernandez and has progressively gotten worse since then no water pills not eating well but drinks well Past Family Social History Past Medical History htn chronic back pain Past Surgical History kyphoplasty back surgeries before bilateral hip replacement nerve stimulator Allergies: Coded Allergies: nifedipine (Verified Allergy, Severe, Swelling, 06/13/17) Family History none that he knows of Social History used to smoke quit 25yrs ago only once in a while glass of wine no drugs lives with , no longer driviing, usually walks with walker Physical Exam Vital Signs Vital Signs Date Time Temp Pulse Resp B/P (MAP) Pulse Ox O2 Delivery O2 Flow Rate FiO2 06/14/17 03:19 82 06/14/17 00:30 97.5 74 18 170/96 (120) 97 06/14/17 00:00 97.7 75 18 217/106 (143) 95 06/13/17 20:00 97.8 71 18 197/92 (127) 96 06/13/17 19:33 06/13/17 19:00 72 18 169/72 (104) 95 Room Air 06/13/17 13:02 97.9 82 16 174/114 (134) 93 Physical Exam GENERAL: This is a well-nourished, well-developed patient, in no apparent distress. SKIN: No rashes, ecchymoses or lesions. Cool and dry. HEAD: Atraumatic. Normocephalic. No temporal or scalp tenderness. EYES: Pupils equal round and reactive. Extraocular motions intact. No scleral icterus. No injection or drainage. ENT: Nose without bleeding, purulent drainage or septal hematoma. Throat without erythema, tonsillar hypertrophy or exudate. Uvula midline. Airway patent. NECK: Trachea midline. No JVD or lymphadenopathy. Supple, nontender, no meningeal signs. CARDIOVASCULAR: Regular rate and rhythm without murmurs, gallops, or rubs. RESPIRATORY: Clear to auscultation. Breath sounds equal bilaterally. No wheezes , rales, or rhonchi. GASTROINTESTINAL: Abdomen soft, non-tender, nondistended. No hepato-splenomegaly , or palpable masses. No guarding. MUSCULOSKELETAL: Extremities without clubbing, cyanosis, or edema. No joint tenderness, effusion, or edema noted. No calf tenderness. Negative Homans sign bilaterally. NEUROLOGICAL: Awake and alert. Cranial nerves II through XII intact. Motor and sensory grossly within normal limits. Five out of 5 muscle strength in all muscle groups. Normal speech. Laboratory Laboratory Tests Test 06/13/17 15:30 06/13/17 16:45 06/13/17 18:54 06/13/17 21:20 White Blood Count 10.6 Red Blood Count 4.27 Hemoglobin 13.3 13.3 Hematocrit 37.2 37.7 Mean Corpuscular Volume 87.2 Mean Corpuscular Hemoglobin 31.1 Mean Corpuscular Hemoglobin Concent 35.7 Red Cell Distribution Width 12.8 Platelet Count 343 Mean Platelet Volume 8.1 Neutrophils (%) (Auto) 76.7 Lymphocytes (%) (Auto) 9.9 Monocytes (%) (Auto) 13.1 Eosinophils (%) (Auto) 0.2 Basophils (%) (Auto) 0.1 Neutrophils # (Auto) 8.1 Lymphocytes # (Auto) 1.1 Monocytes # (Auto) 1.4 Eosinophils # (Auto) 0.0 Basophils # (Auto) 0.0 CBC Comment DIFF FINAL Differential Comment Prothrombin Time 9.9 Prothromb Time International Ratio 0.9 Activated Partial Thromboplast Time 29.3 Blood Urea Nitrogen 12 11 Creatinine 0.66 0.58 Random Glucose 96 115 Total Protein 7.7 Albumin 3.1 Calcium Level 11.0 10.4 Alkaline Phosphatase 128 Aspartate Amino Transf (AST/SGOT) 75 Alanine Aminotransferase (ALT/SGPT) 89 Total Bilirubin 0.7 Sodium Level 121 123 Potassium Level 3.5 3.1 Chloride Level 83 85 Carbon Dioxide Level 28.3 29.9 Anion Gap 10 8 Estimat Glomerular Filtration Rate 85 99 Lipase 81 Urine Color YELLOW Urine Turbidity HAZY Urine pH 7.0 Urine Specific [place] 1.013 Urine Protein 30 Urine Glucose (UA) NEG Urine Ketones 10 Urine Occult Blood NEG Urine Nitrite NEG Urine Bilirubin NEG Urine Urobilinogen 2.0 Urine Leukocyte Esterase NEG Urine RBC 1 Urine WBC 3 Urine Squamous Epithelial Cells <1 Urine Amorphous Sediment RARE Urine Mucus FEW Microscopic Urinalysis Comment CULT NOT INDICATED Troponin I LESS THAN 0.02 Test 06/14/17 03:18 Result Diagram: 06/13/17211906/13/172119 Caprin[place]ata VTE Risk Assessment Ismaelrini Risk Assessment Model Point Value = 1 Point Value = 2 Point Value = 3 Point Value = 5 Age 41-60 Minor surgery BMI > 25 kg/m2 Swollen legs Varicose veins or History of unexplained or recurrent spontaneous Oral contraceptives or hormone replacement Sepsis (< 1 month) Serious lung disease, including pneumonia (< 1 month) Abnormal pulmonary function Acute myocardial infarction Congestive heart failure (< 1 month) History of inflammatory bowel disease Medical patient at bed rest Age 61-74 Arthroscopic surgery Major open surgery (> 45 min) Laparoscopic surgery (> 45 min) Malignancy Confined to bed (> 72 hours) Immobilizing plaster cast Central venous access Age >= 75 History of VTE Family history of VTE Factor V Leiden Prothrombin [id number] Lupus anticoagulant Anticardiolipin antibodies Elevated serum homocysteine Heparin-induced thrombocytopenia Other congenital or acquired thrombophilia Stroke (< 1 month) Elective arthroplasty Hip, pelvis, or leg fracture Acute spinal cord injury (< 1 month) Prophylaxis Regimen Total Risk Factor Score Risk Level Prophylaxis Regimen 0-1 Low Early ambulation 2 Moderate Order ONE of the following: *Sequential Compression Device (SCD) *Heparin 5000 units SQ BID 3-4 Higher Order ONE of the following medications: *Heparin 5000 units SQ TID *Enoxaparin/Lovenox 40 mg SQ daily (WT < 150 kg, CrCl > 30 mL/min) *Enoxaparin/Lovenox 30 mg SQ daily (WT < 150 kg, CrCl > 10-29 mL/min) *Enoxaparin/Lovenox 30 mg SQ BID (WT < 150 kg, CrCl > 30 mL/min) AND/OR *Sequential Compression Device (SCD) 5 or more Highest Order ONE of the following medications: *Heparin 5000 units SQ TID (Preferred with Epidurals) *Enoxaparin/Lovenox 40 mg SQ daily (WT < 150 kg, CrCl > 30 mL/min) *Enoxaparin/Lovenox 30 mg SQ daily (WT < 150 kg, CrCl > 10-29 mL/min) *Enoxaparin/Lovenox 30 mg SQ BID (WT < 150 kg, CrCl > 30 mL/min) AND *Sequential Compression Device (SCD) Assessment and Plan Assessment and Plan Impression: Hyponatremia: Likely secondary to poor oral intake Melena: Etiology unclear. denies eating too much [place]/using Pepto- Bismol/iron pills. She is however on multivitamins. Foul-smelling melanotic stool: Would be to rule out C. difficile given that patient was recently hospitalized last month for her back surgery Hypokalemia Generalized weakness: Secondary to hyponatremia Confusion: Secondary to hyponatremia History of hypertension History of chronic back pain: Status post kyphoplasty Plan: BMP every 6 hours. We'll correct sodium slowly to avoid central pontine myelinolysis Start on normal saline at 84 cc per hour. Watch for fluid overload. Would consult [facility] for EGD and colonoscopy. Per , ER had done guaiacs and that this was positive. Serial hemoglobin and hematocrit. Continue pantoprazole 40 mg by mouth twice a day. Replace potassium. Resume her home dose of atenolol. Stool for C. difficile. Resume her pain medicine. However she takes it only once a day. DVT prophylaxis with SCD. GI prophylaxis on pantoprazole. Discussed Condition With Patient, at the bedside, nursing staff Physician Certification 2 Midnight Certification Type: Admission for Inpatient Services Order for Inpatient Services The services are ordered in accordance with Medicare regulations or non- Medicare payer requirements, as applicable. In the case of services not specified as inpatient-only, they are appropriately provided as inpatient services in accordance with the 2-midnight benchmark. Estimated LOS (days): 2 days is the estimated time the patient will need to remain in the hospital, assuming treatment plan goals are met and no additional complications. Post-Hospital Plan: Home Alexander Arzate MD Jun 14, 2017 03:42
[2017-06-14 03:45] LABS: HEMATOCRIT 36.3 % (35.0-46.0); REVIEW FLAG FINAL
[2017-06-14 03:56] LABS: BICARBONATE 28.4 MEQ/L (21.0-32.0); POTASSIUM 3.9 MEQ/L (3.5-5.1)
[2017-06-14 05:22] LABS: AUTOMATED NEUTROPHIL # 6.7 TH/MM3 (1.8-7.7); BASOPHIL % 0.1 % (0.0-2.0); EOSINOPHIL % 0.1 % (0.0-4.0); HEMATOCRIT 34.3 % (35.0-46.0); HEMO FLAGS DIFF FINAL; LYMPH % 7.7 % (9.0-44.0); LYMPHOCYTE # 0.7 TH/MM3 (1.0-4.8); MEAN CELL VOLUME 86.2 FL (80.0-100.0); MEAN CORPUSCULAR HEMOGLOBIN 30.7 PG (27.0-34.0); MEAN CORPUSCULAR HGB CONC 35.6 % (32.0-36.0); MONO % 13.8 % (0.0-8.0); NEUT % 78.3 % (16.0-70.0); PLATELET COUNT 329 TH/MM3 (150-450); RED BLOOD COUNT 3.98 MIL/MM3 (4.00-5.30); WHITE BLOOD COUNT 8.6 TH/MM3 (4.0-11.0)
[2017-06-14 06:06] LABS: ALKALINE PHOSPHATASE 120 U/L (45-117); ALT (GPT) 65 U/L (10-53); ANION GAP 9 MEQ/L (5-15); AST (GOT) 44 U/L (15-37); BICARBONATE 28.2 MEQ/L (21.0-32.0); BLOOD UREA NITROGEN 10 MG/DL (7-18); CHLORIDE 85 MEQ/L (98-107); GLOMERULAR FILTRATION RATE 133 ML/MIN (>89); POTASSIUM 3.9 MEQ/L (3.5-5.1); TOTAL BILIRUBIN ADULT 0.7 MG/DL (0.2-1.0)
[2017-06-14 06:12] LABS: SODIUM (NA) 122 MEQ/L (136-145)
[2017-06-14] MEDS: SODIUM CHLORIDE 0.9% FLUSH 10 ML FLUSH IV FLUSH SCH ×2 (09:00→20:44)
[2017-06-14] MEDS: ATENOLOL 50 MG TAB PO SCH (09:57)
[2017-06-14] MEDS: PANTOPRAZOLE SOD 40 MG DELAYED RELEASE TAB PO SCH ×2 (09:57→20:43)
[2017-06-14] MEDS: ENALAPRILAT 2.5 MG/2 ML VIAL IV PUSH PRN ×2 (10:24→20:43)
[2017-06-14] MEDS: SODIUM CHLOR 0.9% 1000 ML INJ 1,000 ML IV SCH ×2 (11:00→20:42)
--- NOTE | 2017-06-14 12:00 | PD.CONS ---
GI Consult GI Consult Thank you for the consultation, pt seen full consult dictated ASSESSMENT/PLAN: 1. Melena - with hard stools. No need for emergent endoscopy. 2. Mental status changes pt is only Alert and O x 1-2 - this is a new change for her over the last few wks. 3. Hyponatremia PLAN: 1. Recommend increase diet/ IVF 2. Recommend work up MS changes r/o infectious process 3. Once Na is improved then will recommend EGD and colon 4. At this time pt not safe enough to tolerated bowel prep. 5. Dr Griffiths to follow tomorrow. It was a pleasure seeing Radha Albarran . Thank you for this consult. Entered by: Sandy Sanders MD Jun 14, 2017 12:00
--- NOTE | 2017-06-14 12:19 | HHI.PR ---
Subjective Remarks Patient remains confused compared to baseline. She did have an increase in her sodium level overnight but the latest sodium levels show a slight decline again. Presently her latest sodium levels at 122. Objective Vital Signs Date Time Temp Pulse Resp B/P (MAP) Pulse Ox O2 Delivery O2 Flow Rate FiO2 06/14/17 08:00 97.4 76 20 212/91 (131) 96 06/14/17 03:19 82 06/14/17 00:30 97.5 74 18 170/96 (120) 97 06/14/17 00:00 97.7 75 18 217/106 (143) 95 06/13/17 20:00 97.8 71 18 197/92 (127) 96 06/13/17 19:33 06/13/17 19:00 72 18 169/72 (104) 95 Room Air 06/13/17 13:02 97.9 82 16 174/114 (134) 93 I/O 06/13/17 06/13/17 06/13/17 06/14/17 06/14/17 06/14/17 06:59 14:59 22:59 06:59 14:59 22:59 Intake Total 41 ml 395 ml Balance 41 ml 395 ml Intake IV Total 41 ml 395 ml Result Diagram: 06/14/1750906/14/17509 Objective Remarks GENERAL: NAD, A&Ox1 HEAD: Normocephalic. NECK: Supple, trachea midline. No lymphadenopathy. EYES: No scleral icterus. No injection or drainage. CARDIOVASCULAR: Regular rate and rhythm without murmurs, gallops, or rubs. RESPIRATORY: Breath sounds equal bilaterally. No accessory muscle use. GASTROINTESTINAL: Abdomen soft, non-tender, nondistended. MUSCULOSKELETAL: No cyanosis, or edema. SKIN: Warm and dry. NEURO: No focal neurological deficitis. A/P Problem List: (1) Acute hyponatremia ICD Code: E87.1 - Hypo-osmolality and hyponatremia Status: Acute (2) Epigastric abdominal pain ICD Code: R10.13 - Epigastric pain Status: Acute Assessment and Plan Assessment and Plan 86-year-old female admitted secondary to severe hyponatremia Hyponatremia Dark stools versus melena Continue IV hydration Continue by mouth intake with sodium included Continue to monitor BMP every 6 hours GI following Continue Protonix Hypokalemia Follow and replace as needed Hypertension Follow clinically and treat as needed Chronic back pain Status post kyphoplasty Supportive care No complaint of back pain today DVT prophylaxis SCDs Suraj Li MD Jun 14, 2017 12:19
[2017-06-14 13:09] LABS: HEMATOCRIT 36.1 % (35.0-46.0); REVIEW FLAG FINAL
[2017-06-14 13:31] LABS: BICARBONATE 27.4 MEQ/L (21.0-32.0)
[2017-06-14 16:57] LABS: HEMATOCRIT 33.3 % (35.0-46.0); REVIEW FLAG FINAL
[2017-06-14 17:13] LABS: BICARBONATE 25.4 MEQ/L (21.0-32.0); POTASSIUM 3.9 MEQ/L (3.5-5.1)
--- NOTE | 2017-06-14 17:25 | MB ---
cc: PHILOMENA TERAN DATE OF CONSULTATION: 06/14/2017 DATE OF : 1930 SERVICE: Gastroenterology. ATTENDING PHYSICIAN Dr. Philomena Teran. REASON FOR CONSULTATION Black stools. HISTORY OF PRESENT ILLNESS: This is a very pleasant 86-year-old female who was brought in by her for complaints of having weakness, fatigue, mental status changes overall not feeling herself as well as complaints of having melanotic dark bowel movements over the past three weeks. She has never had melena before, she has never had bleeding in the GI tract before. she has never undergone esophagogastroduodenoscopy or colonoscopy in the past. In fact due to the symptoms her primary care already sent a referral for a outpatient work up. In the emergency room she underwent further workup which included a CT scan which was negative for any acute intra-abdominal process. Gastroenterology was consulted for further workup and management. PAST MEDICAL HISTORY: 1. Hypertension 2. Chronic back pain. PAST SURGICAL HISTORY: 1. Recent kyphoplasty 2. Bilateral hip replacement 3. Nerve stimulator placement. ALLERGIES NIFEDIPINE MEDICATIONS Please see Electronic medical record for a complete accurate list. FAMILY HISTORY No GI malignancies. SOCIAL HISTORY Previous tobacco user, quit 25 years ago. Drinks alcohol rarely. Denies any illicit drug use. Lives with her . Prior to this admission. The patient was well mobile. REVIEW OF SYSTEMS The 12 point review of systems was obtained by me. It was negative other then what is in the history of present illness. PHYSICAL EXAMINATION VITAL SIGNS: Temperature 97.3, heart rate of 83, respiration 20, blood pressure 192/94, heart rate 96. IN GENERAL: Alert oriented x one to two, the patient does not know where she is what month or the year this is. She does know the president. She seems somewhat forgetful. According to her this is new. HEAD, EYES, EARS, NOSE, AND THROAT: Mucosa moist and thick, intake no acute distress. CARDIOVASCULAR SYSTEM: Regular rate rhythm. NECK: Supple, nontender. No carotid bruits. No JVD noted. RESPIRATORY: Clear to auscultation. Nonlabored breath sounds. ABDOMEN: Soft, nontender, nondistended. Bowel sounds present in all four quadrants. No hepatosplenomegaly appreciated. No periumbilical ecchymosis. No hepatosplenomegaly appreciated. GENITOURINARY: No Cerebrovascular accident tenderness noted. MUSCULOSKELETAL: Equal strength upper and lower extremities. NEUROLOGIC: Alert but only oriented to person. Cranial nerves II through XII grossly intact. PSYCHIATRIC: Psychiatric cooperative, appropriate mood affect very forgetful. LABORATORY DATA WBC 8.6, hemoglobin 12.2, platelet count 329, sodium 126 and appropriate zero, chloride 90, bicarb 27, BUN nine, creatinine 0.13, 12, AST 44, ALT 65, alk phos 120, albumin 227. IMPRESSION 1. Melanotic stool of unclear etiology. The patient has never undergone endoscopic workup in the past. Wide differential diagnosis including upper GI bleeding versus lower GI bleeding as well as possibility of dark constipated stools which has the appearance of melena. 2. Mental status changes which is new for her according to the patient's . RECOMMENDATIONS 1. Increase diet and IV fluids. 2. Recommend workup for metabolic changes such as an infectious process. 3. Sodium is improving and the patient medically stable we will recommend esophagogastroduodenoscopy and colonoscopy for further evaluation. 4. At this time given the patient's mentation, the patient is not safe not to undergo colonoscopy bowel prep. 5. Dr. Griffiths will follow the patient on morning. Thank you for allowing our clinic to participate in the care of this patient will follow with you and make recommendation that add to the patients clinical course. MD RICA Matson/miguel /3:54 PM /5:09 PM
--- NOTE | 2017-06-14 19:17 | EKG ---
Date Performed: 06/13/2017 Time Performed: 17:34:51 PTAGE: 86 years EKG: BASE ON ARTIFACTS LVH NONSPECIFIC ST T CHANGE POOR INITIAL ANTERIOR FORCES SINCE PREVIOUS TRACING 05/11/2017,PAC'S ARE NO LONGER PRESENT. QRS VOLTAGE ARE MORE PROMINENT I N THE PRECORDIAL LEADS. PREVIOUS TRACIN05/11/2017 01.04 DOCTOR: Jonathan Damico Interpretating Date/Time 06/14/2017 19:16:58
[2017-06-14] MEDS: GABAPENTIN 300 MG CAP PO SCH (20:43)
[2017-06-15] VITALS: BP 153/81; PULSE 67; RESP 18; TEMP 97.9; O2SAT 94
[2017-06-15 04:00] VITALS: BP 227/85; PULSE 74; RESP 20; TEMP 97.3; O2SAT 95
[2017-06-15] MEDS: ENALAPRILAT 2.5 MG/2 ML VIAL IV PUSH PRN (05:59)
[2017-06-15 08:35] VITALS: BP 216/102; PULSE 74; RESP 20; TEMP 97.6; O2SAT 96
[2017-06-15] MEDS: ATENOLOL 50 MG TAB PO SCH (09:49)
[2017-06-15] MEDS: PANTOPRAZOLE SOD 40 MG DELAYED RELEASE TAB PO SCH ×2 (09:49→21:06)
[2017-06-15] MEDS: SODIUM CHLORIDE 0.9% FLUSH 10 ML FLUSH IV FLUSH SCH ×2 (09:50→21:05)
[2017-06-15] MEDS: ACETAMINOPHEN/HYDROcodone 325 MG/5 MG TAB PO PRN ×2 (09:55→16:32)
[2017-06-15] MEDS: SODIUM CHLOR 0.9% 1000 ML INJ 1,000 ML IV SCH ×2 (10:00→16:34)
[2017-06-15] MEDS: cloNIDine HCL 0.1 MG TAB PO PRN ×2 (11:45→21:05)
--- NOTE | 2017-06-15 11:53 | HHI.PR ---
Subjective Remarks Sodium level is now 126 which is an improvement. Patient denies any nausea vomiting or diarrhea. No reports of bloody bowel movement. Hypertensive urgency is present and blood pressure treatments will be adjusted. Objective Vital Signs Date Time Temp Pulse Resp B/P (MAP) Pulse Ox O2 Delivery O2 Flow Rate FiO2 06/15/17 08:35 97.6 74 20 216/102 (140) 96 06/15/17 04:00 97.3 74 20 227/85 (132) 95 06/15/17 00:00 97.9 67 18 153/81 (105) 94 06/14/17 23:51 78 06/14/17 20:00 98.2 79 18 211/99 (136) 96 06/14/17 16:00 98.0 77 20 186/91 (122) 95 06/14/17 12:00 97.3 83 20 196/94 (128) 96 I/O 06/14/17 06/14/17 06/14/17 06/15/17 06/15/17 06/15/17 07:00 15:00 23:00 07:00 15:00 23:00 Intake Total 395 ml 375 ml 684 ml Balance 395 ml 375 ml 684 ml Intake IV Total 395 ml 375 ml 684 ml # Voids 4 5 1 # Bowel Movements 0 Result Diagram: 06/14/17 1521 06/14/17 1521 Objective Remarks GENERAL: NAD, A&Ox1 HEAD: Normocephalic. NECK: Supple, trachea midline. No lymphadenopathy. EYES: No scleral icterus. No injection or drainage. CARDIOVASCULAR: Regular rate and rhythm without murmurs, gallops, or rubs. RESPIRATORY: Breath sounds equal bilaterally. No accessory muscle use. GASTROINTESTINAL: Abdomen soft, non-tender, nondistended. MUSCULOSKELETAL: No cyanosis, or edema. SKIN: Warm and dry. NEURO: No focal neurological deficitis. A/P Problem List: (1) Acute hyponatremia ICD Code: E87.1 - Hypo-osmolality and hyponatremia Status: Acute (2) Epigastric abdominal pain ICD Code: R10.13 - Epigastric pain Status: Acute Assessment and Plan Assessment and Plan 86-year-old female admitted secondary to severe hyponatremia. Slowly improving thus far. Clonidine added to help control blood pressures. Hyponatremia Dark stools versus melena Continue IV hydration Continue by mouth intake with sodium included Continue to monitor BMP every 6 hours GI following Continue Protonix Hypokalemia Follow and replace as needed Hypertensive urgency on Hypertension Follow clinically and treat as needed Continue as needed IV enalapril Start as needed by mouth clonidine Chronic back pain Status post kyphoplasty Supportive care No complaint of back pain today DVT prophylaxis SCDs Suraj Li MD Jun 15, 2017 11:53
[2017-06-15 12:47] VITALS: BP 161/87; PULSE 67; RESP 17; TEMP 97.4; O2SAT 95
--- NOTE | 2017-06-15 15:25 | HHI.GIFU ---
Subjective Remarks ALERT NAD VSS CONFUSED X 2 FEELING BETTER HAD GOOD BM NO BLOOD Objective Vitals I&O Vital Signs Date Time Temp Pulse Resp B/P (MAP) Pulse Ox O2 Delivery O2 Flow Rate FiO2 06/15/17 12:47 97.4 67 17 161/87 (111) 95 06/15/17 08:35 97.6 74 20 216/102 (140) 96 06/15/17 04:00 97.3 74 20 227/85 (132) 95 06/15/17 00:00 97.9 67 18 153/81 (105) 94 06/14/17 23:51 78 06/14/17 20:00 98.2 79 18 211/99 (136) 96 06/14/17 16:00 98.0 77 20 186/91 (122) 95 I/O 06/14/17 06/14/17 06/14/17 06/15/17 06/15/17 06/15/17 07:00 15:00 23:00 07:00 15:00 23:00 Intake Total 395 ml 375 ml 684 ml 480 ml Balance 395 ml 375 ml 684 ml 480 ml Intake Oral 480 ml IV Total 395 ml 375 ml 684 ml # Voids 4 5 6 # Bowel Movements 0 Laboratory Laboratory Tests Test 06/14/17 15:21 06/14/17 17:50 Hemoglobin 11.9 Hematocrit 33.3 Blood Urea Nitrogen 13 Creatinine 0.51 Random Glucose 97 Calcium Level 9.7 Sodium Level 126 Potassium Level 3.9 Chloride Level 91 Carbon Dioxide Level 25.4 Anion Gap 10 Estimat Glomerular Filtration Rate 115 Urine Osmolality 367 Imaging Physical Exam NECK: Neck is supple, no JVD, no lymphadenopathy. CHEST: Chest is clear to auscultation and percussion. CARDIAC: Regular rate and rhythm with no murmur gallop or rubs. ABDOMEN: Soft, nondistended, nontender; no hepatosplenomegaly; bowel sounds are present in all four quadrants. EXTREMITIES: No clubbing, cyanosis, or edema. Assessment and Plan Assessment: (1) Confusion ICD Codes: R41.0 - Disorientation, unspecified (2) Melena ICD Codes: K92.1 - Melena (3) Acute hyponatremia ICD Codes: E87.1 - Hypo-osmolality and hyponatremia Status: Acute Plan cONTINUE PRESENTTHERAPY FOLLOW H/H/....CORRECT HYPONATREMIA WHICH COULD CAUSE CONFUSION....CT REVEALS POSSIBLE CONSOLIDATION OF LEFT LUNG ? CHECK F/U CXR DEFER ENDO EVALUATION FOR NOW..... RX PPI WELL THANKS Leander Griffiths MD Jun 15, 2017 15:25
[2017-06-15 16:33] VITALS: BP 159/83; PULSE 66; RESP 18; TEMP 97.4; O2SAT 96
[2017-06-15 20:30] VITALS: BP 190/93; PULSE 68; RESP 16; TEMP 98.1; O2SAT 95
[2017-06-15] MEDS: GABAPENTIN 300 MG CAP PO SCH (21:05)
[2017-06-16] VITALS (11 sets, daily range): BP systolic 157–206; BP diastolic 79–101; PULSE 62–70; RESP 18–20; TEMP 97.4–98.2; O2SAT 95–97
[2017-06-16] MEDS: SODIUM CHLOR 0.9% 1000 ML INJ 1,000 ML IV SCH ×3 (02:42→23:02)
[2017-06-16] MEDS: cloNIDine HCL 0.1 MG TAB PO PRN ×2 (05:24→15:42)
[2017-06-16] MEDS: ATENOLOL 50 MG TAB PO SCH (08:46)
[2017-06-16] MEDS: PANTOPRAZOLE SOD 40 MG DELAYED RELEASE TAB PO SCH ×2 (08:46→20:21)
[2017-06-16] MEDS: SODIUM CHLORIDE 0.9% FLUSH 10 ML FLUSH IV FLUSH SCH ×2 (08:47→21:00)
[2017-06-16 08:59] LABS: AUTOMATED NEUTROPHIL # 4.5 TH/MM3 (1.8-7.7); BASOPHIL % 0.2 % (0.0-2.0); EOSINOPHIL # 0.1 TH/MM3 (0-0.4); EOSINOPHIL % 1.9 % (0.0-4.0); HEMATOCRIT 26.4 % (35.0-46.0); HEMO FLAGS DIFF FINAL; LYMPH % 11.6 % (9.0-44.0); LYMPHOCYTE # 0.7 TH/MM3 (1.0-4.8); MEAN CELL VOLUME 86.1 FL (80.0-100.0); MEAN CORPUSCULAR HEMOGLOBIN 30.4 PG (27.0-34.0); MEAN CORPUSCULAR HGB CONC 35.3 % (32.0-36.0); MONO % 10.3 % (0.0-8.0); PLATELET COUNT 349 TH/MM3 (150-450); RED BLOOD COUNT 3.07 MIL/MM3 (4.00-5.30); RED CELL DISTRIBUTION WIDTH 12.4 % (11.6-17.2)
[2017-06-16 09:39] LABS: ALKALINE PHOSPHATASE 89 U/L (45-117); ALT (GPT) 102 U/L (10-53); ANION GAP 9 MEQ/L (5-15); AST (GOT) 93 U/L (15-37); BICARBONATE 25.5 MEQ/L (21.0-32.0); BLOOD UREA NITROGEN 8 MG/DL (7-18); CHLORIDE 97 MEQ/L (98-107); GLOMERULAR FILTRATION RATE 152 ML/MIN (>89); SODIUM (NA) 131 MEQ/L (136-145); TOTAL BILIRUBIN ADULT 0.4 MG/DL (0.2-1.0)
[2017-06-16 09:44] LABS: POTASSIUM 2.9 MEQ/L (3.5-5.1)
--- NOTE | 2017-06-16 09:50 | HHI.GIFU ---
Subjective Remarks Alert NAD still confused x 2 labs pending Stools dark brwon not melenotoic Hb stable Objective Vitals I&O Vital Signs Date Time Temp Pulse Resp B/P (MAP) Pulse Ox O2 Delivery O2 Flow Rate FiO2 06/16/17 08:05 70 06/16/17 05:30 98.2 68 18 181/87 (118) 95 06/16/17 01:53 66 06/16/17 00:28 98.0 63 18 174/79 (110) 95 06/15/17 20:30 98.1 68 16 190/93 (125) 95 06/15/17 16:33 97.4 66 18 159/83 (108) 96 06/15/17 12:47 97.4 67 17 161/87 (111) 95 I/O 06/15/17 06/15/17 06/15/17 06/16/17 06/16/17 06/16/17 06:59 14:59 22:59 06:59 14:59 22:59 Intake Total 684 ml 480 ml Balance 684 ml 480 ml Intake Oral 480 ml IV Total 684 ml # Voids 6 5 # Bowel Movements 1 2 Laboratory Laboratory Tests Test 06/16/17 07:02 White Blood Count 6.0 Red Blood Count 3.07 Hemoglobin 9.3 Hematocrit 26.4 Mean Corpuscular Volume 86.1 Mean Corpuscular Hemoglobin 30.4 Mean Corpuscular Hemoglobin Concent 35.3 Red Cell Distribution Width 12.4 Platelet Count 349 Mean Platelet Volume 6.9 Neutrophils (%) (Auto) 76.0 Lymphocytes (%) (Auto) 11.6 Monocytes (%) (Auto) 10.3 Eosinophils (%) (Auto) 1.9 Basophils (%) (Auto) 0.2 Neutrophils # (Auto) 4.5 Lymphocytes # (Auto) 0.7 Monocytes # (Auto) 0.6 Eosinophils # (Auto) 0.1 Basophils # (Auto) 0.0 CBC Comment DIFF FINAL Differential Comment Blood Urea Nitrogen 8 Creatinine 0.40 Random Glucose 85 Total Protein 4.9 Albumin 1.9 Calcium Level 8.9 Alkaline Phosphatase 89 Aspartate Amino Transf (AST/SGOT) 93 Alanine Aminotransferase (ALT/SGPT) 102 Total Bilirubin 0.4 Sodium Level 131 Potassium Level 2.9 Chloride Level 97 Carbon Dioxide Level 25.5 Anion Gap 9 Estimat Glomerular Filtration Rate 152 Physical Exam NECK: Neck is supple, no JVD, no lymphadenopathy. CHEST: Chest is clear to auscultation and percussion. CARDIAC: Regular rate and rhythm with no murmur gallop or rubs. ABDOMEN: Soft, nondistended, nontender; no hepatosplenomegaly; bowel sounds are present in all four quadrants. EXTREMITIES: No clubbing, cyanosis, or edema. Assessment and Plan Assessment: (1) Confusion ICD Codes: R41.0 - Disorientation, unspecified (2) Melena ICD Codes: K92.1 - Melena (3) Acute hyponatremia ICD Codes: E87.1 - Hypo-osmolality and hyponatremia Status: Acute Plan pt appears stable but confused cont present therapy Discussed w he prefers to proceed conservatively for now w possible outpt evaluation later on Leander Griffiths MD Jun 16, 2017 09:50
[2017-06-16] MEDS ORDERED: POTASSIUM CHLORIDE 20 MEQ PWD PACKET PO ONE (10:15)
[2017-06-16] MEDS: LISINOPRIL 20 MG TAB PO SCH (10:30)
--- NOTE | 2017-06-16 10:53 | HHI.PR ---
Subjective Remarks Sodium levels show improvement today. Reading is at 131 for sodium today. Her potassium has declined to 2.9. No complaints from patient. Her still says that she has some confusion compared to baseline. Objective Vital Signs Date Time Temp Pulse Resp B/P (MAP) Pulse Ox O2 Delivery O2 Flow Rate FiO2 06/16/17 08:05 70 06/16/17 08:00 98.2 65 18 157/101 (119) 96 06/16/17 05:30 98.2 68 18 181/87 (118) 95 06/16/17 01:53 66 06/16/17 00:28 98.0 63 18 174/79 (110) 95 06/15/17 20:30 98.1 68 16 190/93 (125) 95 06/15/17 16:33 97.4 66 18 159/83 (108) 96 06/15/17 12:47 97.4 67 17 161/87 (111) 95 I/O 06/15/17 06/15/17 06/15/17 06/16/17 06/16/17 06/16/17 07:00 15:00 23:00 07:00 15:00 23:00 Intake Total 684 ml 480 ml Balance 684 ml 480 ml Intake Oral 480 ml IV Total 684 ml # Voids 6 5 # Bowel Movements 1 2 Result Diagram: 06/16/1770106/16/17701 Objective Remarks GENERAL: NAD, A&Ox1 HEAD: Normocephalic. NECK: Supple, trachea midline. No lymphadenopathy. EYES: No scleral icterus. No injection or drainage. CARDIOVASCULAR: Regular rate and rhythm without murmurs, gallops, or rubs. RESPIRATORY: Breath sounds equal bilaterally. No accessory muscle use. GASTROINTESTINAL: Abdomen soft, non-tender, nondistended. MUSCULOSKELETAL: No cyanosis, or edema. SKIN: Warm and dry. NEURO: No focal neurological deficitis. A/P Problem List: (1) Acute hyponatremia ICD Code: E87.1 - Hypo-osmolality and hyponatremia Status: Acute (2) Epigastric abdominal pain ICD Code: R10.13 - Epigastric pain Status: Acute Assessment and Plan Assessment and Plan 86-year-old female admitted secondary to severe hyponatremia. Slowly improving thus far. Clonidine added to help control blood pressures. Sodium levels are improving with treatment. Continue present treatment. Labs reviewed. Continue to monitor potassium and sodium levels. Labs ordered. Hyponatremia Dark stools versus melena Continue IV hydration Continue by mouth intake with sodium included Continue to monitor BMP every 6 hours GI following Continue Protonix Hypokalemia Follow and replace as needed Hypertensive urgency on Hypertension Follow clinically and treat as needed Continue as needed IV enalapril Start as needed by mouth clonidine Chronic back pain Status post kyphoplasty Supportive care No complaint of back pain today DVT prophylaxis SCDs Suraj Li MD Jun 16, 2017 10:53
[2017-06-16] MEDS: ACETAMINOPHEN/HYDROcodone 325 MG/5 MG TAB PO PRN (20:21)
[2017-06-16] MEDS: GABAPENTIN 300 MG CAP PO SCH (20:21)
[2017-06-16] MEDS: ENALAPRILAT 2.5 MG/2 ML VIAL IV PUSH PRN (20:22)
[2017-06-17] VITALS (8 sets, daily range): BP systolic 144–198; BP diastolic 79–95; PULSE 60–81; RESP 16–22; TEMP 97.3–98.3; O2SAT 95–97
[2017-06-17] MEDS: cloNIDine HCL 0.1 MG TAB PO PRN ×3 (00:50→20:30)
[2017-06-17] MEDS: ENALAPRILAT 2.5 MG/2 ML VIAL IV PUSH PRN (04:49)
[2017-06-17 06:26] LABS: AUTOMATED NEUTROPHIL # 6.1 TH/MM3 (1.8-7.7); BASOPHIL % 0.2 % (0.0-2.0); EOSINOPHIL # 0.1 TH/MM3 (0-0.4); EOSINOPHIL % 1.9 % (0.0-4.0); HEMO FLAGS DIFF FINAL; LYMPH % 9.6 % (9.0-44.0); LYMPHOCYTE # 0.7 TH/MM3 (1.0-4.8); MEAN CORPUSCULAR HEMOGLOBIN 30.9 PG (27.0-34.0); MEAN CORPUSCULAR HGB CONC 35.5 % (32.0-36.0); NEUT % 80.3 % (16.0-70.0); PLATELET COUNT 432 TH/MM3 (150-450); RED BLOOD COUNT 3.68 MIL/MM3 (4.00-5.30); RED CELL DISTRIBUTION WIDTH 12.9 % (11.6-17.2); WHITE BLOOD COUNT 7.6 TH/MM3 (4.0-11.0)
[2017-06-17 06:58] LABS: ALKALINE PHOSPHATASE 113 U/L (45-117); ALT (GPT) 112 U/L (10-53); ANION GAP 7 MEQ/L (5-15); AST (GOT) 69 U/L (15-37); BICARBONATE 26.3 MEQ/L (21.0-32.0); BLOOD UREA NITROGEN 7 MG/DL (7-18); CHLORIDE 99 MEQ/L (98-107); GLOMERULAR FILTRATION RATE 118 ML/MIN (>89); POTASSIUM 3.3 MEQ/L (3.5-5.1); SODIUM (NA) 132 MEQ/L (136-145); TOTAL BILIRUBIN ADULT 0.5 MG/DL (0.2-1.0)
[2017-06-17] MEDS: PANTOPRAZOLE SOD 40 MG DELAYED RELEASE TAB PO SCH ×2 (07:39→20:30)
[2017-06-17] MEDS: LISINOPRIL 20 MG TAB PO SCH (07:39)
[2017-06-17] MEDS: ATENOLOL 50 MG TAB PO SCH (07:40)
[2017-06-17] MEDS: SODIUM CHLORIDE 0.9% FLUSH 10 ML FLUSH IV FLUSH SCH ×2 (07:40→20:30)
[2017-06-17] MEDS: ACETAMINOPHEN/HYDROcodone 325 MG/5 MG TAB PO PRN ×2 (07:40→14:01)
[2017-06-17] MEDS: SODIUM CHLOR 0.9% 1000 ML INJ 1,000 ML IV SCH (07:42)
--- NOTE | 2017-06-17 09:48 | HHI.PR ---
Subjective Remarks complains of back discomfort- chronic- ff by Dr. Calvillo as OP ff as OP by Dr. Fernandez - last seen 3 weeks ago- S/P T11 kyphoplasty no abdominal pain, nasea vomiting or melena, occasional constipation- but no complains states abmublates with a walker as OP on Hydrococodn q 12 prm for pain not lasting long enough no fecal or urinatry incontinence Objective Vitals Vital Signs Date Time Temp Pulse Resp B/P (MAP) Pulse Ox O2 Delivery O2 Flow Rate FiO2 06/17/17 09:11 98.3 69 18 198/95 (129) 95 06/17/17 08:03 71 06/17/17 05:41 97.3 65 18 183/88 (119) 95 06/17/17 00:50 98.3 66 18 171/82 (111) 95 06/16/17 20:43 97.6 65 20 195/85 (121) 96 06/16/17 20:40 62 06/16/17 16:37 168/92 (117) 06/16/17 16:18 97.9 65 18 206/98 (134) 96 06/16/17 13:20 159/90 (113) 06/16/17 12:00 97.4 66 18 179/87 (117) 97 I/O 06/16/17 06/16/17 06/16/17 06/17/17 06/17/17 06/17/17 07:00 15:00 23:00 07:00 15:00 23:00 Intake Total 120 ml 722 ml 784 ml Balance 120 ml 722 ml 784 ml Intake Oral 120 ml IV Total 722 ml 784 ml # Voids 5 2 5 # Bowel Movements 2 2 Result Diagram: 06/17/17 0602 06/17/17 0607 Imaging Last Impressions Chest X-Ray 06/13/17 1838 Signed Impressions: Service Date/Time: Tuesday, June 13, 2017 18:54 - CONCLUSION: No acute disease. Interrum kyphoplasty one lower thoracic vertebral bodies probably T. 11 Christian Cole MD Abdomen/Pelvis CT 06/13/17 1526 Signed Impressions: Service Date/Time: Tuesday, June 13, 2017 19:05 - CONCLUSION: Intra-abdominal contents are unchanged with no acute intra-abdominal or pelvic process. The highest images in the chest suggesting there is consolidation adjacent to the aorta and possible chronic section of the lower thoracic aorta at this area not being imaged on prior studies. Clinical correlation recommended. Christian Cole MD Objective Remarks awake and aleert, oriented x 3, spech clear and coherent anicteric lungs clear regular rhythm abdomen soft, no calf swelling or tenderness, moves all extremities spontaenously DTRs ++, grossly sensory intact. motor equal A/P Assessment and Plan 86-year-old female admitted secondary to severe hyponatremia. Slowly improving thus far. Clonidine added to help control blood pressures. Sodium levels are improving with treatment. Continue present treatment. Labs reviewed. Continue to monitor potassium and sodium levels. Labs ordered. Hyponatremia Dark stools versus melena - fluid restriction. no sings of fluid excess -H and H stable. no reported bleeding GI following Continue Protonix Hypokalemia Follow and replace as needed po KCL 30 meq po x 1 now Hypertensive urgency on Hypertension Follow clinically and treat as needed Continue as needed IV enalapril - continue on Atenolol 50 mg daily, Lisinopril 40 mg daily.. will restart her Hydralazine 50 mg po q8 Chronic back pain Status post kyphoplasty Supportive care - increase pain meds- d/w her- change to [place] 5/325 mg po q6 prn for pain PT daily- will need skilled therapy- will consult CM Mildly elevated LFTs - likely drug induced- on Lortab 10 for pain since kyphoplasty - LFTs stble - d/w patient and will continue to monitor - pain ,eds- 5 mg q 6 prn for pain -repeat LFTs in 3days- with OP ff up with GI DVT prophylaxis SCDs PT daily CM- SNF vs [facility] or OP PT Booker Wild MD Jun 17, 2017 09:48
[2017-06-17] MEDS ORDERED: TEMAZEPAM 7.5 MG CAP PO PRN (10:00)
[2017-06-17] MEDS ORDERED: POTASSIUM CHLORIDE 10 MEQ CONTROLLED RELEASE TAB PO ONE (10:00)
[2017-06-17] MEDS: hydrALAZINE HCL 50 MG TAB PO SCH ×2 (10:42→17:01)
--- NOTE | 2017-06-17 16:03 | HHI.GIFU ---
Subjective Remarks alert but confusion persists Nad Objective Vitals I&O Vital Signs Date Time Temp Pulse Resp B/P (MAP) Pulse Ox O2 Delivery O2 Flow Rate FiO2 06/17/17 12:44 97.7 67 16 163/79 (107) 96 06/17/17 09:11 98.3 69 18 198/95 (129) 95 06/17/17 08:03 71 06/17/17 05:41 97.3 65 18 183/88 (119) 95 06/17/17 00:50 98.3 66 18 171/82 (111) 95 06/16/17 20:43 97.6 65 20 195/85 (121) 96 06/16/17 20:40 62 06/16/17 16:37 168/92 (117) 06/16/17 16:18 97.9 65 18 206/98 (134) 96 I/O 06/16/17 06/16/17 06/16/17 06/17/17 06/17/17 06/17/17 07:00 15:00 23:00 07:00 15:00 23:00 Intake Total 120 ml 722 ml 1024 ml Balance 120 ml 722 ml 1024 ml Intake Oral 120 ml 240 ml IV Total 722 ml 784 ml # Voids 5 2 5 3 1 # Bowel Movements 2 2 2 Laboratory Laboratory Tests Test 06/17/17 06:02 06/17/17 06:07 White Blood Count 7.6 Red Blood Count 3.68 Hemoglobin 11.3 Hematocrit 32.0 Mean Corpuscular Volume 87.0 Mean Corpuscular Hemoglobin 30.9 Mean Corpuscular Hemoglobin Concent 35.5 Red Cell Distribution Width 12.9 Platelet Count 432 Mean Platelet Volume 6.8 Neutrophils (%) (Auto) 80.3 Lymphocytes (%) (Auto) 9.6 Monocytes (%) (Auto) 8.0 Eosinophils (%) (Auto) 1.9 Basophils (%) (Auto) 0.2 Neutrophils # (Auto) 6.1 Lymphocytes # (Auto) 0.7 Monocytes # (Auto) 0.6 Eosinophils # (Auto) 0.1 Basophils # (Auto) 0.0 CBC Comment DIFF FINAL Differential Comment Blood Urea Nitrogen 7 Creatinine 0.50 Random Glucose 97 Total Protein 6.4 Albumin 2.5 Calcium Level 9.8 Alkaline Phosphatase 113 Aspartate Amino Transf (AST/SGOT) 69 Alanine Aminotransferase (ALT/SGPT) 112 Total Bilirubin 0.5 Sodium Level 132 Potassium Level 3.3 Chloride Level 99 Carbon Dioxide Level 26.3 Anion Gap 7 Estimat Glomerular Filtration Rate 118 Physical Exam NECK: Neck is supple, no JVD, no lymphadenopathy. CHEST: Chest is clear to auscultation and percussion. CARDIAC: Regular rate and rhythm with no murmur gallop or rubs. ABDOMEN: Soft, nondistended, nontender; no hepatosplenomegaly; bowel sounds are present in all four quadrants. EXTREMITIES: No clubbing, cyanosis, or edema. Assessment and Plan Assessment: (1) Confusion ICD Codes: R41.0 - Disorientation, unspecified (2) Melena ICD Codes: K92.1 - Melena (3) Acute hyponatremia ICD Codes: E87.1 - Hypo-osmolality and hyponatremia Status: Acute Plan pt appears stable cont present therapy hopefully d/c w outpt followup Leander Griffiths MD Jun 17, 2017 16:03
[2017-06-17] MEDS: GABAPENTIN 300 MG CAP PO SCH (20:30)
[2017-06-18] VITALS: BP 163/70; PULSE 74; RESP 18; TEMP 98; O2SAT 95
[2017-06-18] MEDS: hydrALAZINE HCL 50 MG TAB PO SCH ×2 (03:20→09:46)
[2017-06-18] MEDS: ACETAMINOPHEN/HYDROcodone 325 MG/5 MG TAB PO PRN ×2 (04:10→09:46)
[2017-06-18 04:41] VITALS: BP 201/116; PULSE 74; RESP 22; TEMP 97.8; O2SAT 96
[2017-06-18 05:46] VITALS: BP 157/78; PULSE 68
[2017-06-18 07:39] LABS: BICARBONATE 24.7 MEQ/L (21.0-32.0); POTASSIUM 3.5 MEQ/L (3.5-5.1)
[2017-06-18 08:00] VITALS: BP 168/69; PULSE 77; RESP 18; TEMP 97.7; O2SAT 95
[2017-06-18] MEDS: ATENOLOL 50 MG TAB PO SCH (08:02)
[2017-06-18] MEDS: LISINOPRIL 20 MG TAB PO SCH (08:03)
[2017-06-18] MEDS: SODIUM CHLORIDE 0.9% FLUSH 10 ML FLUSH IV FLUSH SCH (08:03)
[2017-06-18] MEDS: PANTOPRAZOLE SOD 40 MG DELAYED RELEASE TAB PO SCH (08:03)
--- NOTE | 2017-06-18 08:47 | HHI.PR ---
Subjective Remarks seen with at bedside feeling stronger-- pain meds working better aty q 6 prn regimen voiding well- continent Objective Vitals Vital Signs Date Time Temp Pulse Resp B/P (MAP) Pulse Ox O2 Delivery O2 Flow Rate FiO2 06/18/17 08:00 97.7 77 18 168/69 (102) 95 06/18/17 05:46 68 157/78 (104) 06/18/17 04:41 97.8 74 22 201/116 (144) 96 06/18/17 00:00 98.0 74 18 163/70 (101) 95 06/17/17 20:00 81 06/17/17 20:00 98.2 73 22 194/85 (121) 97 06/17/17 17:00 98.1 60 18 144/87 (106) 97 06/17/17 12:44 97.7 67 16 163/79 (107) 96 06/17/17 09:11 98.3 69 18 198/95 (129) 95 I/O 06/17/17 06/17/17 06/17/17 06/18/17 06/18/17 06/18/17 07:00 15:00 23:00 07:00 15:00 23:00 Intake Total 1024 ml Balance 1024 ml Intake Oral 240 ml IV Total 784 ml # Voids 5 3 3 4 # Bowel Movements 2 0 0 Result Diagram: 06/17/17 0602 06/18/17 0614 Imaging Last Impressions Chest X-Ray 06/13/17 1838 Signed Impressions: Service Date/Time: Tuesday, June 13, 2017 18:54 - CONCLUSION: No acute disease. Interrum kyphoplasty one lower thoracic vertebral bodies probably T. 11 Christian Cole MD Abdomen/Pelvis CT 06/13/17 1526 Signed Impressions: Service Date/Time: Tuesday, June 13, 2017 19:05 - CONCLUSION: Intra-abdominal contents are unchanged with no acute intra-abdominal or pelvic process. The highest images in the chest suggesting there is consolidation adjacent to the aorta and possible chronic section of the lower thoracic aorta at this area not being imaged on prior studies. Clinical correlation recommended. Christian Cole MD Objective Remarks awake and alert, oriented x 3, speech clear and coherent anicteric lungs clear regular rhythm abdomen soft, no calf swelling or tenderness, moves all extremities spontaneously, good peripheral pulses DTRs ++, grossly sensory intact. motor equal A/P Assessment and Plan 86-year-old female admitted secondary to severe hyponatremia. Hyponatremia Dark stools versus melena - fluid restriction -H and H stable. no reported bleeding GI following- OP ff up Continue Protonix Hypokalemia- corrected KCL 10 meq po x 3 days more then recheck BM<P as OP in SNF Hypertensive urgency - improved readings Follow clinically and treat as needed Continue as needed IV enalapril - continue on Atenolol 50 mg daily, Lisinopril 40 mg daily.. -restarted Hydralazine 50 mg po q8- 06/18 Mildly elevated LFTs - likely drug induced- on Lortab 10 for pain since kyphoplasty - LFTs trending down - d/w patient and will continue to monitor on pain meds - pain meds- 5 mg q 6 prn for pain -repeat LFTs in 3days- with OP ff up with GI Chronic back pain Status post kyphoplasty Supportive care - increase pain meds- d/w her- change to [place] 5/325 mg po q6 prn for pain PT daily- will need skilled therapy- d/w case Mx- DC to SNF today DVT prophylaxis SCDs PT daily d/w patient and - agreable to SNF today for more PT d/w pain meds and lab works- ff LFTs as OP in SNF in 2 days OP ff up with Booker Rizzo MD Jun 18, 2017 08:47
[2017-06-18] MEDS ORDERED: LISI-515 PO (09:02)
[2017-06-18] MEDS ORDERED: HYDR-3516 PO (09:02)
[2017-06-18] MEDS ORDERED: GABA300C5 PO (09:02)
[2017-06-18] MEDS ORDERED: HYDR-3800 PO (09:02)
[2017-06-18] MEDS ORDERED: PANT40TA3 PO (09:02)
[2017-06-18] MEDS ORDERED: TEMA7.5C9 PO (09:02)
[2017-06-18] MEDS ORDERED: POTA10CA PO (09:11)
--- NOTE | 2017-06-18 09:14 | HHI.DS ---
Discharge Summary Admission Date Jun 13, 2017 at 18:41 Discharge Date: Jun 18, 2017 Admitting Diagnosis Hyponatremia/Epigastric pain (1) Acute hyponatremia ICD Code: E87.1 - Hypo-osmolality and hyponatremia Diagnosis: Principal Status: Acute (2) HTN (hypertension) ICD Code: I10 - Essential (primary) hypertension Diagnosis: Secondary (3) Elevated LFTs ICD Code: R79.89 - Other specified abnormal findings of blood chemistry Diagnosis: Secondary (4) pain Diagnosis: Secondary Brief History - From Admission Hx from patient's , pt herself, ER notes and review of medical records black stools for about 2 weeks was c/o pain then no nause no vomiting no diarrhea, just regular hard stool that is black no fever no chest pain or palp or shortness of breath no blood very weak in legs, get more and more confused as the days go on - also for about 3 weeks fell twice in this 3 weeks had kypohplasty with Dr Fernandez and has progressively gotten worse since then no water pills not eating well but drinks well CBC/BMP: 06/17/17 0602 06/18/17 0614 Significant Findings Laboratory Tests Test 06/16/17 07:02 06/17/17 06:02 06/17/17 06:07 06/18/17 06:14 Red Blood Count 3.07 MIL/MM3 (4.00-5.30) 3.68 MIL/MM3 (4.00-5.30) Hemoglobin 9.3 GM/DL (11.6-15.3) 11.3 GM/DL (11.6-15.3) Hematocrit 26.4 % (35.0-46.0) 32.0 % (35.0-46.0) Mean Platelet Volume 6.9 FL (7.0-11.0) 6.8 FL (7.0-11.0) Neutrophils (%) (Auto) 76.0 % (16.0-70.0) 80.3 % (16.0-70.0) Monocytes (%) (Auto) 10.3 % (0.0-8.0) Lymphocytes # (Auto) 0.7 TH/MM3 (1.0-4.8) 0.7 TH/MM3 (1.0-4.8) Creatinine 0.40 MG/DL (0.50-1.00) 0.36 MG/DL (0.50-1.00) Total Protein 4.9 GM/DL (6.4-8.2) Albumin 1.9 GM/DL (3.4-5.0) 2.5 GM/DL (3.4-5.0) Aspartate Amino Transf (AST/SGOT) 93 U/L (15-37) 69 U/L (15-37) Alanine Aminotransferase (ALT/SGPT) 102 U/L (10-53) 112 U/L (10-53) Sodium Level 131 MEQ/L (136-145) 132 MEQ/L (136-145) 133 MEQ/L (136-145) Potassium Level 2.9 MEQ/L (3.5-5.1) 3.3 MEQ/L (3.5-5.1) Chloride Level 97 MEQ/L (98-107) Imaging Last Impressions Chest X-Ray 06/13/17 1838 Signed Impressions: Service Date/Time: Tuesday, June 13, 2017 18:54 - CONCLUSION: No acute disease. Interrum kyphoplasty one lower thoracic vertebral bodies probably T. 11 Christian Cole MD Abdomen/Pelvis CT 06/13/17 1526 Signed Impressions: Service Date/Time: Tuesday, June 13, 2017 19:05 - CONCLUSION: Intra-abdominal contents are unchanged with no acute intra-abdominal or pelvic process. The highest images in the chest suggesting there is consolidation adjacent to the aorta and possible chronic section of the lower thoracic aorta at this area not being imaged on prior studies. Clinical correlation recommended. Christian Cole MD PE at Discharge awake and alert, oriented x 3, speech clear and coherent anicteric lungs clear regular rhythm abdomen soft, no calf swelling or tenderness, moves all extremities spontaneously, good peripheral pulses DTRs ++, grossly sensory intact. motor equal Pt update on day of discharge awake and alert, oriented x 3 motivated with PT- awares that she is going to Rehab- at bedside also in agreement and looking forward to DC with more PT Hospital Course 86-year-old female admitted secondary to severe hyponatremia. Hyponatremia Dark stools versus melena - fluid restriction -H and H stable. no reported bleeding GI following- OP ff up Continue Protonix Hypokalemia- corrected KCL 10 meq po x 3 days more then recheck BM<P as OP in SNF Hypertensive urgency - improved readings Follow clinically and treat as needed Continue as needed IV enalapril - continue on Atenolol 50 mg daily, Lisinopril 40 mg daily.. -restarted Hydralazine 50 mg po q8- 06/18 Mildly elevated LFTs - likely drug induced- on Lortab 10 for pain since kyphoplasty - LFTs stble - d/w patient and will continue to monitor - pain meds- 5 mg q 6 prn for pain -repeat LFTs in 3days- with OP ff up with GI Chronic back pain Status post kyphoplasty Supportive care - increase pain meds- d/w her- change to [place] 5/325 mg po q6 prn for pain PT daily- will need skilled therapy- d/w case Mx- DC to SNF today DVT prophylaxis SCDs PT daily d/w patient and - agreable to SNF today for more PT d/w pain meds and lab works- ff LFTs as OP in SNF in 2 days OP ff up with GI Pt Condition on Discharge: Stable Discharge Disposition: Discharge to SNF Discharge Time: <= 30 minutes Discharge Instructions DIET: Follow Instructions for: Heart Healthy Diet Speech Therapy-Diet Recommends: Mechanical Soft, Chopped Meat w/Gravy Fluid Restrictions: 1 L Activities you can perform: Weight Bearing as Yanet Follow up Referrals: Gastroenterology - 3-5 Days with Leander Griffiths MD New Orders: COMP MET PROF (CMP) - 06/20/17 New Medications: Potassium Chloride ER (Potassium Chloride ER) 10 Meq Cap 10 MEQ PO DAILY for Electrolyte Replacement for 3 Days, #3 CAP 0 Refills Hydralazine HCl (Hydralazine HCl) 50 Mg Tablet 50 MG PO Q8H for HTN for 30 Days, #90 TAB Hydrocodone-Acetaminophen (Hydrocodone-Acetaminophen) 5-325 mg Tab 1 TAB PO Q6H PRN for BACK PAIN for 10 Days, #40 TAB Lisinopril (Lisinopril) 20 Mg Tab 40 MG PO DAILY for HTN, #30 TAB Pantoprazole (Pantoprazole) 40 Mg Tab 40 MG PO Q12HR for GI for 30 Days, TAB Temazepam (Restoril) 7.5 Mg Cap 7.5 MG PO HS PRN for sleep aid, #7 CAP Continued Medications: Atenolol (Atenolol) 50 Mg Tab 50 MG PO DAILY for Blood Pressure Management, #30 TAB 0 Refills Gabapentin (Gabapentin) 300 Mg Cap 300 MG PO HS for Pain Management, #30 CAP 0 Refills (This prescription has been renewed) Krill Oil (Krill Oil) 1,000 Mg Cap 1000 MG PO DAILY, CAP Sennosides-Docusate Sodium (Ynes-Colace) 8.6-50 Mg Tab 1 TAB PO BID for Constipation, #20 TAB 0 Refills Discontinued Medications: Alprazolam (Alprazolam) 0.25 Mg Tab Hydrocodone-Acetaminophen (Hydrocodone-Acetaminophen) 10-325 mg Tab 1 TAB PO Q4H PRN for PAIN SCALE 1 TO 5, #30 TAB Booker Wild MD Jun 18, 2017 09:14
[2017-06-18] MEDS ORDERED: POTASSIUM CHLORIDE 20 MEQ CONTROLLED RELEASE TAB PO ONE (10:00)
[2017-06-18 12:00] VITALS: BP 148/87; PULSE 70; RESP 18; TEMP 97.6; O2SAT 97
== END 2017-06-18 13:31 | DRG 641 ==
LOC: NEPE 12:59 → NEDA 18:41 → N05A 19:40
PROVIDERS: ADMIT Hospitalist; ATTEND Internal Medicine
DX: E87.1 Hypo-osmolality and hyponatremia (principal); K92.1 Melena; I10 Essential (primary) hypertension; E87.6 Hypokalemia; R53.1 Weakness; R41.0 Disorientation, unspecified; I16.0 Hypertensive urgency; R79.89 Other specified abnormal findings of blood chemistry; R10.13 Epigastric pain; M54.9 Dorsalgia, unspecified; G89.29 Other chronic pain; Z87.891 Personal history of nicotine dependence; Z88.8 Allergy status to other drugs, medicaments and biological substances
CPT/HCPCS: 71010; 74177; 76937; 80048; 80053; 81001; 83690; 83935; 84443; 84484; 85014; 85018; 85025; 85610; 85730; 86850; 86900; 86901; 93005; 96361; 96374; 96375; C9113; J1650; J2405; J7030; J7040; Q9967

== ENCOUNTER 2018-01-04 21:17 | Emergency (ER) | payer OTHER, MEDICARE ==
[2018-01-04] MEDS: hydrALAZINE HCL 50 MG TAB PO (23:45)
[2018-01-04] MEDS: ATENOLOL 50 MG TAB PO (23:45)
[2018-01-04] MEDS: TETANUS/DIPHTHERIA TOXOID ADULT 0.5 ML VIAL IM (23:47)
[2018-01-05] MEDS: LIDOCAINE 2%/EPINEPHrine 1:100,000 20ML MDV NERV BLOCK ×2 (00:15→00:23)
[2018-01-05 00:44] LABS: CHLORIDE 95 MEQ/L (98-107); POTASSIUM 3.7 MEQ/L (3.5-5.1); SODIUM (NA) 131 MEQ/L (136-145)
[2018-01-05 00:47] LABS: CALCIUM 10.6 MG/DL (8.5-10.1)
[2018-01-05 00:48] LABS: ALBUMIN 4.4 GM/DL (3.4-5.0); ANION GAP 8 MEQ/L (5-15); BICARBONATE 28.2 MEQ/L (21.0-32.0); BLOOD UREA NITROGEN 10 MG/DL (7-18); GLUCOSE,RANDOM 115 MG/DL (74-106)
[2018-01-05 00:50] LABS: ALT (GPT) 22 U/L (10-53)
[2018-01-05 00:51] LABS: AST (GOT) 22 U/L (15-37); CREATININE 0.72 MG/DL (0.50-1.00); GLOMERULAR FILTRATION RATE 77 ML/MIN (>89)
[2018-01-05 00:52] LABS: TOTAL BILIRUBIN ADULT 0.5 MG/DL (0.2-1.0); TOTAL PROTEIN 8.3 GM/DL (6.4-8.2)
[2018-01-05 00:53] LABS: ALKALINE PHOSPHATASE 97 U/L (45-117)
[2018-01-05 00:55] LABS: TROPONIN I LESS THAN 0.02 NG/ML (0.02-0.05)
[2018-01-05 00:59] LABS: CREATINE KINASE 76 U/L (26-192)
[2018-01-05 01:05] LABS: AUTOMATED NEUTROPHIL # 7.7 TH/MM3 (1.8-7.7); BASOPHIL % 0.2 % (0.0-2.0); EOSINOPHIL # 0.1 TH/MM3 (0-0.4); EOSINOPHIL % 0.9 % (0.0-4.0); HEMATOCRIT 43.9 % (35.0-46.0); HEMO FLAGS DIFF FINAL; LYMPH % 14.1 % (9.0-44.0); LYMPHOCYTE # 1.4 TH/MM3 (1.0-4.8); MEAN CELL VOLUME 87.4 FL (80.0-100.0); MEAN CORPUSCULAR HGB CONC 34.3 % (32.0-36.0); MEAN PLATELET VOLUME 8.4 FL (7.0-11.0); MONO % 4.7 % (0.0-8.0); MONOCYTE # 0.5 TH/MM3 (0-0.9); NEUT % 80.1 % (16.0-70.0); PLATELET COUNT 362 TH/MM3 (150-450); RED BLOOD COUNT 5.02 MIL/MM3 (4.00-5.30); RED CELL DISTRIBUTION WIDTH 13.3 % (11.6-17.2); WHITE BLOOD COUNT 9.7 TH/MM3 (4.0-11.0)
[2018-01-05] MEDS: ACETAMINOPHEN/HYDROcodone 325 MG/5 MG TAB PO (02:34)
[2018-01-05] MEDS: hydrALAZINE HCL 20 MG/ML VIAL IV PUSH (03:50)
== END 2018-01-05 04:54 | disposition home or self-care (01) ==
LOC: PHED 01-05 04:54
DX: S62.101A Fracture of unspecified carpal bone, right wrist, initial encounter for closed fracture (principal); S00.03XA Contusion of scalp, initial encounter; S61.511A Laceration without foreign body of right wrist, initial encounter; S61.212A Laceration without foreign body of right middle finger without damage to nail, initial encounter; S61.214A Laceration without foreign body of right ring finger without damage to nail, initial encounter; S61.216A Laceration without foreign body of right little finger without damage to nail, initial encounter; R00.1 Bradycardia, unspecified; W08.XXXA Fall from other furniture, initial encounter; Z23 Encounter for immunization
CPT/HCPCS: 12002; 29125; 70450; 73090; 80053; 82550; 84484; 85025; 90471; 90714; 93005; 96374; 99285-25

== ENCOUNTER 2018-06-18 01:25 | Observation (INO) ==
[2018-06-18] MEDS ORDERED: Sodium Chlor 0.9% Inj 500 ML IV.SIG ONE ×2 (02:59→05:52)
[2018-06-18 03:21] LABS: Baso # (Auto) 0.1 th/mm3 (0.0-0.2); Baso % (Auto) 0.5 % (0.0-2.0); Eos # (Auto) 0.1 th/mm3 (0.0-0.4); Eos % (Auto) 1.1 % (0.0-4.0); Hematocrit 42.3 % (35.0-46.0); Hemoglobin 14.2 gm/dL (11.6-15.3); Lymph # (Auto) 1.1 th/mm3 (1.0-4.8); Lymph % (Auto) 9.3 % (9.0-44.0); Mean Corpuscular HGB Conc 33.5 % (32.0-36.0); Mean Corpuscular Hemoglobin 29.9 pg (27.0-34.0); Mean Corpuscular Volume 89.3 fL (80.0-100.0); Mean Platelet Volume 7.7 fL (7.0-11.0); Mono # (Auto) 0.4 th/mm3 (0.0-0.9); Mono % (Auto) 3.4 % (0.0-8.0); Neut # (Auto) 9.9 th/mm3 (1.8-7.7); Neut % (Auto) 85.7 % (16.0-70.0); Platelet Count 268 th/mm3 (150-450); Red Blood Count 4.74 mil/mm3 (4.00-5.30); Red Cell Distribution Width 12.5 % (11.6-17.2); White Blood Count 11.6 th/mm3 (4.0-11.0)
[2018-06-18 03:35] LABS: Chloride 94 meq/L (98-107); Potassium 3.2 meq/L (3.5-5.1); Sodium 132 meq/L (136-145)
[2018-06-18 03:40] LABS: Albumin 4.3 g/dL (3.4-5.0); Anion Gap 9 meq/L (5-15); Blood Urea Nitrogen 19 mg/dL (7-18); Carbon Dioxide 29.1 meq/L (21.0-32.0); Glucose,Random 151 mg/dL (74-106); Lipase 356 U/L (73-393)
[2018-06-18 03:42] LABS: Alanine Aminotransferase 24 U/L (10-53)
[2018-06-18 03:43] LABS: Aspartate Aminotransferase 28 U/L (15-37); Glomerular Filtration Rate 60 mL/min (>89)
[2018-06-18 03:44] LABS: Total Protein 7.8 g/dL (6.4-8.2)
[2018-06-18 03:45] LABS: Bilirubin,Urine Negative (Negative); Clarity,Urine Clear (Clear); Color,Urine Yellow (Yellw/Straw); Glucose,Urine (UA) 100 mg/dL (Negative); Leukocyte Esterase,Urine Negative (Negative); Nitrite,Urine Negative (Negative); PH,Urine 6.5 (5.0-8.5); Urobilinogen,Urine 0.2 mg/dL (Less than 2)
[2018-06-18 03:45] LABS: Alkaline Phosphatase 82 U/L (45-117)
[2018-06-18 03:48] LABS: RBC,Urine 0-3 /hpf (0-3); Squamous Epithelial Cell,Urine 0-5 /hpf (0-5); WBC,Urine 0-5 /hpf (0-5)
--- NOTE | 2018-06-18 04:20 | CT ---
EXAM DATE: 06/18/2018 3:31 AM EDT AGE/SEX: 87 years / Female INDICATIONS: Trauma; head injury. CLINICAL DATA: This is the patient's initial encounter. Patient reports that signs and symptoms have been present for 1 day and indicates a pain score of 5/10. MEDICAL/SURGICAL HISTORY: Dementia. Hypertension. . Spinal stimulator. RADIATION DOSE: 42.79 CTDI (mGy) COMPARISON: [facility], CT BRAIN W/O CONTRAST, 01/04/2018. . TECHNIQUE: CT of the head without contrast. Using automated exposure control and adjustment of the mA and/or kV according to patient size, radiation dose was kept as low as reasonably achievable to ob tain optimal diagnostic quality images. DICOM format image data is available electronically for revi ew and comparison. FINDINGS: Cerebrum: The ventricles are normal for age. Cerebral atrophy. Areas of low-density are seen through out the periventricular white matter. No evidence of midline shift, mass lesion, hemorrhage or acute infarction. No extraaxial fluid collections are seen. Posterior Fossa: The cerebellum and brainstem are intact. The 4th ventricle is midline. The cerebe llopontine angle is unremarkable. Extracranial: The visualized portion of the orbits is intact. Skull: The calvaria is intact. No evidence of skull fracture. CONCLUSION: 1. Cerebral atrophy and chronic ischemic small vessel vasculopathy. . Electronically signed by: Andrzej Desai MD 06/18/2018 4:18 AM EDT
--- NOTE | 2018-06-18 04:28 | CT ---
EXAM DATE: 06/18/2018 3:29 AM EDT AGE/SEX: 87 years / Female INDICATIONS: Abdominal pain, vomiting. CLINICAL DATA: This is the patient's initial encounter. Patient reports that signs and symptoms have been present for 1 day and indicates a pain score of 7/10. MEDICAL/SURGICAL HISTORY: Gastroesophageal reflux disease. Dementia. Hypertension. . Spinal s timulator. ORAL CONTRAST: No oral contrast ingested. RADIATION DOSE: 7.16 CTDI (mGy) COMPARISON: [facility], CT ABDOMEN & PELVIS W CONTRAST, 06/13/2017. . TECHNIQUE: Multiple contiguous axial images were obtained through the abdomen and pelvis following b olus infusion of 80 ml Omnipaque 350 (iohexol) nonionic water-soluble contrast as a single exam dos e. No oral contrast ingested. Using automated exposure control and adjustment of the mA and/or kV ac cording to patient size, radiation dose was kept as low as reasonably achievable to obtain optimal di agnostic quality images. DICOM format image data is available electronically for review and comparis on. FINDINGS: Lower Lungs: The visualized lower lungs are clear. Liver: The liver has a homogeneous density without space-occupying lesion. There is no dilation of th e biliary tree. Spleen: Homogeneous density without enlargement. Pancreas: Unremarkable without mass or calcification. Kidneys: Normal in size and shape. No evidence of mass or hydronephrosis. Bilateral renal low densit ies. Adrenal Glands: Unremarkable. Aorta: Atherosclerotic changes without aneurysmal dilation. Bowel/Mesentery: There are some fluid-filled bowel loops. No dilated bowel loops. No inflammatory ch anges. Abdominal Wall: Intact. Retroperitoneum: No evidence of adenopathy in the retrocrural, para-aortic, or deep pelvic regions. Bladder: Contours are smooth. Mildly distended. Reproductive Organs: No abnormal masses or calcific ations seen. Inguinal: The inguinal region is unremarkable without evidence of adenopathy. Bony Structures: Degenerative changes and scoliosis. Kyphoplasty cement within the lower thoracic ve rtebral body. Bilateral hip prostheses. Postsurgical changes with bony fusion posterior elements lowe r lumbar spine. Neural stimulator device along the left buttock. CONCLUSION: 1. Fluid-filled bowel loops without obstruction. 2. Bilateral renal low densities likely cysts. 3. Mild distention urinary bladder. Electronically signed by: Andrzej Desai MD 06/18/2018 4:27 AM EDT
--- NOTE | 2018-06-18 05:52 | ED ---
HPI General Chief complaint: Nausea/Vomiting/Diarrhea Stated complaint: Cough/Vomiting x 3 days Time Seen by Provider: 06/18/18 02:46 Source: patient Mode of arrival: ambulatory Limitations: no limitations History of Present Illness HPI narrative: This is an 87-year-old female who has a history of dementia and hypertension who had a resection of a growth on her nose on Tuesday for which she completed a course of Bactrim. 2 days ago she developed persistent nausea and vomiting, constant, severe. She has had some upper abdominal discomfort. She denies any fevers or chills. Her bowels have been normal with no diarrhea or constipation. She has never had abdominal surgery. She denies any dysuria. She says her blood pressure is always high. Related Data Home Medications Medication Instructions Recorded Confirmed alprazolam 0.25 mg PO BID 04/14/18 06/18/18 atenolol 50 mg PO DAILY 04/14/18 06/18/18 biotin 1,000 mcg PO DAILY 04/14/18 06/18/18 cholecalciferol (vitamin D3) 1,000 unit PO DAILY 04/14/18 06/18/18 [Vitamin D3] citalopram 10 mg PO DAILY 04/14/18 06/18/18 diphenhydramine HCl [Unisom 50 mg PO HS PRN 04/14/18 06/18/18 Sleepgels] gabapentin 300 mg PO HS 04/14/18 06/18/18 hydralazine 50 mg PO TID 04/14/18 06/18/18 hydrocodone-acetaminophen 1 tab PO BID PRN MDD 50 04/14/18 06/18/18 baptz-au-9-uiw-cas-ilcqevu-ast 1 cap PO DAILY 04/14/18 06/18/18 [MegaRed [place]-3 Krill Oil] memantine [Namenda] 5 mg PO BID 04/14/18 06/18/18 omeprazole 20 mg PO DAILY 04/14/18 06/18/18 wqzargmu-mbl-unzh-FA-lutein 1 tab PO DAILY 06/18/18 06/18/18 [Centrum Silver Women] Previous Rx's Medication Instructions Recorded mupirocin 1 applic TOPICAL BID #30 g 04/14/18 ondansetron [Zofran ODT] 4 mg PO Q6H PRN #10 tab 06/18/18 Allergies Allergy/AdvReac Type Severity Reaction Status Date / Time nifedipine Allergy Severe Swelling Verified 06/18/18 02:50 Review of Systems ROS: all other systems reviewed are negative [facility] Medical History Medical History Back pain (Acute) Dementia (Acute) Depression (Acute) GERD (gastroesophageal reflux disease) (Acute) Hypertension (Acute) Surgical History Surgical History History of back surgery (Acute) Social History Social History Substance History: No History of Abuse Smoking Status: Former smoker How Often Do You Have a Drink Containing Alcohol: 2 to 4 times a month Recent Travel in [facility] within the Last 8 Weeks: No Recent Out of Country Travel within the Last 8 Weeks: No Immunization History Tetanus Immunization: <5 Years Exam Narrative Exam Narrative: GENERAL:Frail elderly female in no acute distress SKIN: Dry with skin tenting HEAD: Atraumatic. Normocephalic. EYES: Pupils equal and round. No injection or drainage. ENT: Moist mucous membranes NECK: Trachea midline. CARDIOVASCULAR: Regular rate and rhythm. No murmur appreciated. RESPIRATORY: Clear to auscultation. Breath sounds equal bilaterally. GASTROINTESTINAL: Abdomen soft, tender to palpation in the left upper and lower abdomen with no rebound/guarding. MUSCULOSKELETAL: No obvious deformities. NEUROLOGICAL: Awake and alert. No obvious cranial nerve deficits. Moving all extremities. PSYCHIATRIC: Appropriate mood and affect; insight and judgment normal. Course Initial Documented Vital Signs Temperature 97.6 F 06/18/18 01:33 Pulse Rate 66 06/18/18 01:33 Respiratory Rate 18 06/18/18 01:33 Blood Pressure 219/111 H 06/18/18 01:33 Pulse Oximetry 95 06/18/18 01:33 Last Documented Vital Signs Temperature 97.6 F 06/18/18 01:33 Pulse Rate 68 06/18/18 06:21 Respiratory Rate 16 06/18/18 06:21 Blood Pressure 202/85 H 06/18/18 06:21 Pulse Oximetry 98 06/18/18 06:21 Medical Decision Making MDM Narrative Medical decision making narrative: This is an 87-year-old female who presents to the emergency department with nausea and vomiting for 2 days. She was placed on a monitor and an IV was established. She is tender on exam of the left abdomen. Labs demonstrate a mild leukocytosis and mild hyponatremia. Biliary labs are reassuring. Lipase is normal. CT abdomen pelvis and CT of the head are unrevealing. Initially family was eager to go home. However upon my reassessment the patient continued to have belching and retching and given her age I think it is reasonable to observe her to ensure her symptoms are improving. Her symptoms may be related to her recent surgery or to hypertensive urgency. She has been unable to keep her medications down up until now. She was given her atenolol and hydralazine and her blood pressure will be reassessed. I spoke to Dr. Rogers and the patient will be placed in observation for protracted nausea and vomiting. Medical Screen Exam Complete: Yes Emergency Medical Condition: Yes Differential Diagnosis Differential Diagnosis: Diverticulitis, gastritis, cholecystitis, cholelithiasis , pancreatitis, intracranial hemorrhage, small bowel obstruction Lab Data Lab results reviewed: Yes I reviewed the patient's lab results. Result diagrams: 06/18/18 03:12 06/18/18 03:12 Lab Results 06/18/18 06/18/18 06/18/18 Range/Units 03:12 03:12 03:12 CBC w Diff Auto diff final WBC 11.6 H (4.0-11.0) th/mm3 RBC 4.74 (4.00-5.30) mil/mm3 Hgb 14.2 (11.6-15.3) gm/dL Hct 42.3 (35.0-46.0) % MCV 89.3 (80.0-100.0) fL MCH 29.9 (27.0-34.0) pg MCHC 33.5 (32.0-36.0) % RDW 12.5 (11.6-17.2) % Plt Count 268 (150-450) th/mm3 MPV 7.7 (7.0-11.0) fL Neut % (Auto) 85.7 H (16.0-70.0) % Lymph % (Auto) 9.3 (9.0-44.0) % [place] % (Auto) 3.4 (0.0-8.0) % Eos % (Auto) 1.1 (0.0-4.0) % Baso % (Auto) 0.5 (0.0-2.0) % Neut # (Auto) 9.9 H (1.8-7.7) th/mm3 Lymph # (Auto) 1.1 (1.0-4.8) th/mm3 [place] # (Auto) 0.4 (0.0-0.9) th/mm3 Eos # (Auto) 0.1 (0.0-0.4) th/mm3 Baso # (Auto) 0.1 (0.0-0.2) th/mm3 WBC Differential . Differential Comment . Sodium 132 L (136-145) meq/L Potassium 3.2 L (3.5-5.1) meq/L Chloride 94 L (98-107) meq/L Carbon Dioxide 29.1 (21.0-32.0) meq/L Anion Gap 9 (5-15) meq/L BUN 19 H (7-18) mg/dL Creatinine 0.90 (0.50-1.00) mg/dL Estimated GFR 60 L (>89) mL/min Random Glucose 151 H (74-106) mg/dL Lactic Acid 1.5 (0.4-2.0) mmol/L Calcium 10.0 (8.5-10.1) mg/dL Total Bilirubin 0.6 (0.2-1.0) mg/dL AST 28 (15-37) U/L ALT 24 (10-53) U/L Alkaline Phosphatase 82 (45-117) U/L Troponin I Less than 0.02 L (0.02-0.05) ng/mL Total Protein 7.8 (6.4-8.2) g/dL Albumin 4.3 (3.4-5.0) g/dL Lipase 356 (73-393) U/L Urine Color (Yellw/Straw) Urine Clarity (Clear) Urine pH (5.0-8.5) Ur Specific [place] (1.002-1.035) Urine Protein (Neg-Trace) mg/dL Urine Glucose (UA) (Negative) mg/dL Urine Ketones (Negative) mg/dL Urine Occult Blood (Negative) Urine Nitrate (Negative) Urine Bilirubin (Negative) Urine Urobilinogen (Less than 2) mg/dL Ur Leukocyte Esterase (Negative) Urine RBC (0-3) /hpf Urine WBC (0-5) /hpf Ur Squamous Epith Cells (0-5) /hpf Micro UA Comment Ur Microscopic Review Urine Culture Comments 06/18/18 Range/Units 03:30 CBC w Diff WBC (4.0-11.0) th/mm3 RBC (4.00-5.30) mil/mm3 Hgb (11.6-15.3) gm/dL Hct (35.0-46.0) % MCV (80.0-100.0) fL MCH (27.0-34.0) pg MCHC (32.0-36.0) % RDW (11.6-17.2) % Plt Count (150-450) th/mm3 MPV (7.0-11.0) fL Neut % (Auto) (16.0-70.0) % Lymph % (Auto) (9.0-44.0) % [place] % (Auto) (0.0-8.0) % Eos % (Auto) (0.0-4.0) % Baso % (Auto) (0.0-2.0) % Neut # (Auto) (1.8-7.7) th/mm3 Lymph # (Auto) (1.0-4.8) th/mm3 [place] # (Auto) (0.0-0.9) th/mm3 Eos # (Auto) (0.0-0.4) th/mm3 Baso # (Auto) (0.0-0.2) th/mm3 WBC Differential Differential Comment Sodium (136-145) meq/L Potassium (3.5-5.1) meq/L Chloride (98-107) meq/L Carbon Dioxide (21.0-32.0) meq/L Anion Gap (5-15) meq/L BUN (7-18) mg/dL Creatinine (0.50-1.00) mg/dL Estimated GFR (>89) mL/min Random Glucose (74-106) mg/dL Lactic Acid (0.4-2.0) mmol/L Calcium (8.5-10.1) mg/dL Total Bilirubin (0.2-1.0) mg/dL AST (15-37) U/L ALT (10-53) U/L Alkaline Phosphatase (45-117) U/L Troponin I (0.02-0.05) ng/mL Total Protein (6.4-8.2) g/dL Albumin (3.4-5.0) g/dL Lipase (73-393) U/L Urine Color Yellow (Yellw/Straw) Urine Clarity Clear (Clear) Urine pH 6.5 (5.0-8.5) Ur Specific [place] 1.020 (1.002-1.035) Urine Protein 100 H (Neg-Trace) mg/dL Urine Glucose (UA) 100 H (Negative) mg/dL Urine Ketones Trace H (Negative) mg/dL Urine Occult Blood Negative (Negative) Urine Nitrate Negative (Negative) Urine Bilirubin Negative (Negative) Urine Urobilinogen 0.2 (Less than 2) mg/dL Ur Leukocyte Esterase Negative (Negative) Urine RBC 0-3 (0-3) /hpf Urine WBC 0-5 (0-5) /hpf Ur Squamous Epith Cells 0-5 (0-5) /hpf Micro UA Comment Cath-culture not ind Ur Microscopic Review Microscopic reviewed Urine Culture Comments Cath-cult not ind Imaging Data Radiologist's impression: Abdomen/Pelvis CT 06/18/18 03:11 CONCLUSION: 1. Fluid-filled bowel loops without obstruction. 2. Bilateral renal low densities likely cysts. 3. Mild distention urinary bladder. Head CT 06/18/18 03:29 CONCLUSION: 1. Cerebral atrophy and chronic ischemic small vessel vasculopathy. . Discharge Plan Discharge Disposition Patient Disposition: 30 Still Patient Discharge Condition Condition: Stable Discharge Order Discharge Orders: Discharge Order (Routine); Ordered 06/18/18 Ordered By: Tatianna Guerrero Discharge Details Diagnosis: Hypertensive urgency Physicians Team ED Provider: Tatianna Guerrero Primary Care Provider: Do Sandy Merchant Attending Provider: Cassie Hull Status ED Status: Admitted Observation Patient
[2018-06-18] MEDS ORDERED: hydrALAZINE 50 MG Tablet PO ONE (05:53)
[2018-06-18] MEDS ORDERED: Atenolol 50 MG Tablet PO ONE (05:53)
[2018-06-18] MEDS ORDERED: Acetaminophen 325 MG Tablet PO PRN (06:39)
[2018-06-18] MEDS ORDERED: Bisacodyl 10 MG Supp RECTAL PRN (06:39)
[2018-06-18] MEDS: Sod Chloride 0.9% Inj 1,000 ML IV.CONT SCH ×4 (08:00→23:30)
[2018-06-18] MEDS: hydrALAZINE 50 MG Tablet PO SCH ×3 (08:10→17:34)
--- NOTE | 2018-06-18 08:52 | P.HP ---
History of Present Illness Primary Care Physician: Do Sandy Merchant Chief Complaint: Abdominal pain, nausea and vomting History of Present Illness: This is an 87-year-old female patient with a known medical history of hypertension who presented to the ED with complaints of worsening abdominal pain , nausea and vomiting as well as elevated blood pressure. Patient is a relatively poor historian due to underlying dementia, is at bedside assisting with obtaining medical history. Patient states that she underwent a surgery on Tuesday for skin cancer removal on her nose, and at that time was prescribed Bactrim, she states that she is taken 3 days worth of this Bactrim and since that time has had problems with her GI tract including abdominal pain , nausea and vomiting. She denies any recent fevers, chills, chest pain, headache, dysuria at home. She states she has been unable to eat or drink for the past few days secondary to her nausea. It should be noted that patient's daughter is also hospitalized with abdominal pain, nausea and vomiting for the same length of time which may be related to patient said symptoms. Patient follows closely with her primary care doctor, denies any new changes to her medicines. Patient lives at home with her and daughter, at baseline patient uses a walker and able to perform most ADLs per self. - Diagnosis (1) Abdominal pain (2) Nausea and vomiting (3) Hypertensive urgency Review of Systems All other systems reviewed negative except as stated in HPI PMFSH - History History Provided By: Patient, Family Member - Medical History Medical History: Medical History (Last Reviewed 06/18/18 @ 10:57 by Tasha Salgado) Back pain Dementia Depression GERD (gastroesophageal reflux disease) Hypertension - Surgical History Surgical History: Surgical History (Last Reviewed 06/18/18 @ 10:57 by Tasha Salgado) History of back surgery - Family History Family History: Family History (Last Updated 06/18/18 @ 10:57 by Tasha Salgado) Other Family history non-contributory - Social History I have reviewed the patient's Social History: Yes - Tobacco History Tobacco Use In Past 30 Days: No Smoking Status: Former smoker - Alcohol History How Often Do You Have a Drink Containing Alcohol: 2 to 4 times a month - Substance Use History Substance History: No History of Abuse - Travel History Recent Travel in the [place] Within the Last 8 Weeks: No Recent Travel Out of the Country Within the Last 8 Weeks: No - Immunization History Tetanus Immunization: <5 Years Medications and Allergies Active Medications: Active Medications Acetaminophen (Tylenol) 650 mg PO Q4H PRN PRN Reason: Temp > 100.4 Al Hydroxide/Mg Hydroxide (Milk Of Magnesia Liq) 30 ml PO Q12H PRN PRN Reason: Mild Constipation Alprazolam (Xanax) 0.25 mg PO BID [facility] Atenolol (Tenormin) 50 mg PO DAILY [facility] Last Admin: 06/18/18 08:10 Dose: Not Given Bisacodyl (Dulcolax Supp) 10 mg RECTAL DAILY PRN PRN Reason: SEVERE CONSITIPATION Citalopram Hydrobromide (Celexa) 10 mg PO DAILY [facility] Gabapentin (Neurontin) 300 mg PO HS [facility] Hydralazine HCl (Apresoline) 50 mg PO TID [facility] Last Admin: 06/18/18 08:10 Dose: Not Given Sodium Chloride (Ns Inj) 1,000 mls @ 100 mls/hr IV.CONT .Q10H [facility] Last Infusion: 06/18/18 08:40 Dose: 100 mls/hr Lactulose (Lactulose Liq) 30 ml PO DAILY PRN PRN Reason: SEVERE CONSITIPATION Memantine (Namenda) 5 mg PO BID [facility] Ondansetron HCl (Zofran Inj) 4 mg IV.PUSH Q6H PRN PRN Reason: NAUSEA OR VOMITING Pantoprazole Sodium (Protonix) 20 mg PO DAILY [facility] Prochlorperazine Edisylate (Compazine Inj) 10 mg IV.PUSH Q6H PRN PRN Reason: NAUSEA/VOMITING Senna/Docusate Sodium (Ynes-Colace) 1 tab PO BID [facility] Sennosides (Senokot) 17.2 mg PO Q12H PRN PRN Reason: Moderate Constipation Sodium Chloride (Ns Flush) 2 ml IV.FLUSH PRN PRN PRN Reason: FLUSH AFTER USING IV ACCESS Allergies Allergy/AdvReac Type Severity Reaction Status Date / Time nifedipine Allergy Severe Swelling Verified 06/18/18 02:50 Home Medications Medication Instructions Recorded Confirmed Type alprazolam 0.25 mg PO BID 04/14/18 06/18/18 History atenolol 50 mg PO DAILY 04/14/18 06/18/18 History biotin 1,000 mcg PO DAILY 04/14/18 06/18/18 History cholecalciferol (vitamin D3) 1,000 unit PO DAILY 04/14/18 06/18/18 History [Vitamin D3] citalopram 10 mg PO DAILY 04/14/18 06/18/18 History diphenhydramine HCl [Unisom 50 mg PO HS PRN 04/14/18 06/18/18 History Sleepgels] gabapentin 300 mg PO HS 04/14/18 06/18/18 History hydralazine 50 mg PO TID 04/14/18 06/18/18 History hydrocodone-acetaminophen 1 tab PO BID PRN MDD 50 04/14/18 06/18/18 History zdcdc-zo-7-ivy-aob-rvvoipx-ast 1 cap PO DAILY 04/14/18 06/18/18 History [MegaRed [place]-3 Krill Oil] memantine [Namenda] 5 mg PO BID 04/14/18 06/18/18 History omeprazole 20 mg PO DAILY 04/14/18 06/18/18 History eaecbkxp-ccj-xhiq-FA-lutein 1 tab PO DAILY 06/18/18 06/18/18 History [Centrum Silver Women] Exam Vital signs: Vital Signs 06/18/18 01:33 06/18/18 03:00 06/18/18 06:21 Temperature 97.6 F Pulse Rate 66 57 L 68 Respiratory Rate 18 18 16 Blood Pressure 219/111 H 206/107 H 202/85 H Pulse Oximetry 95 93 L 98 06/18/18 07:18 06/18/18 07:51 Temperature Pulse Rate 60 58 L Respiratory Rate 18 16 Blood Pressure 186/94 H 186/86 H Pulse Oximetry 94 L 95 Intake & Output 06/17/18 06/18/18 06/18/18 18:59 06:59 18:59 Intake Total 500 / 500 500 / 500 Balance 500 / 500 500 / 500 Weight 43.3 kg Intake: IV 500 / 500 500 / 500 NS Inj 1,000 ML @ 100 mls/hr IV 0 / 0 .CONT .Q10H [facility] Rx#:[id number] NS Inj 500 ML @ Wide Open IV. 500 / 500 500 / 500 SIG BOLUS ONE Rx#:[id number] Other: # Voids 1 Narrative: GENERAL: Well-developed, well-nourished patient in NAD. SKIN: Warm and dry. No rash. HEAD: Normocephalic. Atraumatic. EYES: Pupils equal and round. No scleral icterus. No injection or drainage. ENT: No nasal bleeding or discharge. Mucous membranes pink and moist. NECK: Supple. Trachea midline. CARDIOVASCULAR: Regular rate and rhythm. S1, S2 noted. No murmur appreciated. RESPIRATORY: No accessory muscle use. Clear to auscultation. Breath sounds equal bilaterally. GASTROINTESTINAL: Abdomen soft, non-tender, nondistended. Normoactive bowel sounds x4. MUSCULOSKELETAL: No obvious deformities. Extremities without clubbing, cyanosis , or edema. NEUROLOGICAL: Awake and alert. No obvious cranial nerve deficits. Motor grossly within normal limits. 5/5 muscle strength in bilateral upper and lower extremities. Normal speech. PSYCHIATRIC: Appropriate mood and affect; insight and judgment normal. Results - Labs CBC & Chem 7: 06/18/18 03:12 06/18/18 03:12 Labs: Laboratory Results - last 24 hr 06/18/18 06/18/18 06/18/18 03:12 03:12 03:12 CBC w Diff Auto diff final WBC 11.6 H RBC 4.74 Hgb 14.2 Hct 42.3 MCV 89.3 MCH 29.9 MCHC 33.5 RDW 12.5 Plt Count 268 MPV 7.7 Neut % (Auto) 85.7 H Lymph % (Auto) 9.3 [place] % (Auto) 3.4 Eos % (Auto) 1.1 Baso % (Auto) 0.5 Neut # (Auto) 9.9 H Lymph # (Auto) 1.1 [place] # (Auto) 0.4 Eos # (Auto) 0.1 Baso # (Auto) 0.1 WBC Differential . Differential Comment . Sodium 132 L Potassium 3.2 L Chloride 94 L Carbon Dioxide 29.1 Anion Gap 9 BUN 19 H Creatinine 0.90 Estimated GFR 60 L Random Glucose 151 H Lactic Acid 1.5 Calcium 10.0 Total Bilirubin 0.6 AST 28 ALT 24 Alkaline Phosphatase 82 Troponin I Less than 0.02 L Total Protein 7.8 Albumin 4.3 Lipase 356 Urine Color Urine Clarity Urine pH Ur Specific [place] Urine Protein Urine Glucose (UA) Urine Ketones Urine Occult Blood Urine Nitrate Urine Bilirubin Urine Urobilinogen Ur Leukocyte Esterase Urine RBC Urine WBC Ur Squamous Epith Cells Micro UA Comment Ur Microscopic Review Urine Culture Comments 06/18/18 03:30 CBC w Diff WBC RBC Hgb Hct MCV MCH MCHC RDW Plt Count MPV Neut % (Auto) Lymph % (Auto) [place] % (Auto) Eos % (Auto) Baso % (Auto) Neut # (Auto) Lymph # (Auto) [place] # (Auto) Eos # (Auto) Baso # (Auto) WBC Differential Differential Comment Sodium Potassium Chloride Carbon Dioxide Anion Gap BUN Creatinine Estimated GFR Random Glucose Lactic Acid Calcium Total Bilirubin AST ALT Alkaline Phosphatase Troponin I Total Protein Albumin Lipase Urine Color Yellow Urine Clarity Clear Urine pH 6.5 Ur Specific [place] 1.020 Urine Protein 100 H Urine Glucose (UA) 100 H Urine Ketones Trace H Urine Occult Blood Negative Urine Nitrate Negative Urine Bilirubin Negative Urine Urobilinogen 0.2 Ur Leukocyte Esterase Negative Urine RBC 0-3 Urine WBC 0-5 Ur Squamous Epith Cells 0-5 Micro UA Comment Cath-culture not ind Ur Microscopic Review Microscopic reviewed Urine Culture Comments Cath-cult not ind - Imaging Impressions Abdomen/Pelvis CT 06/18/18 03:11 CONCLUSION: 1. Fluid-filled bowel loops without obstruction. 2. Bilateral renal low densities likely cysts. 3. Mild distention urinary bladder. Head CT 06/18/18 03:29 CONCLUSION: 1. Cerebral atrophy and chronic ischemic small vessel vasculopathy. . Caprini VTE Risk Assessment Caprini VTE Risk Assessment: Moderate/High Risk (score >= 2) Caprini Risk Assessment Model: Point Value = 1 Point Value = 2 Point Value = 3 Point Value = 5 Age 41-60 Minor surgery BMI > 25 kg/m2 Swollen legs Varicose veins or History of unexplained or recurrent spontaneous Oral contraceptives or hormone replacement Sepsis (< 1 month) Serious lung disease, including pneumonia (< 1 month) Abnormal pulmonary function Acute myocardial infarction Congestive heart failure (< 1 month) History of inflammatory bowel disease Medical patient at bed rest Age 61-74 Arthroscopic surgery Major open surgery (> 45 min) Laparoscopic surgery (> 45 min) Malignancy Confined to bed (> 72 hours) Immobilizing plaster cast Central venous access Age >= 75 History of VTE Family history of VTE Factor V Leiden Prothrombin [id number] Lupus anticoagulant Anticardiolipin antibodies Elevated serum homocysteine Heparin-induced thrombocytopenia Other congenital or acquired thrombophilia Stroke (< 1 month) Elective arthroplasty Hip, pelvis, or leg fracture Acute spinal cord injury (< 1 month) Prophylaxis Regimen: Total Risk Factor Score Risk Level Prophylaxis Regimen 0-1 Low Early ambulation 2 Moderate Order ONE of the following: *Sequential Compression Device (SCD) *Heparin 5000 units SQ BID 3-4 Higher Order ONE of the following medications: *Heparin 5000 units SQ TID *Enoxaparin/Lovenox 40 mg SQ daily (WT < 150 kg, CrCl > 30 mL/min) *Enoxaparin/Lovenox 30 mg SQ daily (WT < 150 kg, CrCl > 10-29 mL/min) *Enoxaparin/Lovenox 30 mg SQ BID (WT < 150 kg, CrCl > 30 mL/min) AND/OR *Sequential Compression Device (SCD) 5 or more Highest Order ONE of the following medications: *Heparin 5000 units SQ TID (Preferred with Epidurals) *Enoxaparin/Lovenox 40 mg SQ daily (WT < 150 kg, CrCl > 30 mL/min) *Enoxaparin/Lovenox 30 mg SQ daily (WT < 150 kg, CrCl > 10-29 mL/min) *Enoxaparin/Lovenox 30 mg SQ BID (WT < 150 kg, CrCl > 30 mL/min) AND *Sequential Compression Device (SCD) Assessment and Plan - Assessment (1) Abdominal pain Code(s): R10.9 - Unspecified abdominal pain Status: Acute (2) Nausea and vomiting Code(s): R11.2 - Nausea with vomiting, unspecified Status: Acute (3) Hypertensive urgency Code(s): I16.0 - Hypertensive urgency Status: Acute - Plan This is a pleasant 87-year-old female patient with a known medical history of dementia and hypertension who presented to the ED with Abdominal pain, nausea and vomiting x 5 days -Patient is status post skin cancer removal from her nose in the outpatient setting, was prescribed Bactrim and has taken a total of 3 doses. Since that time patient has had abdominal pain, nausea and vomiting and unable to eat or drink without emesis. -Patient denies any bloody or black emesis, denies any bloody or black stool. Patient does admit that her bowel movements have been loose as well. -It should be noted that patient's daughter is admitted for a possible viral GI infection. This may be related to patient's symptoms. -Abdominal/pelvis CT was performed in ED and reviewed showing fluid-filled bowel with no obstruction. Patient's pain has improved. -Ensure hydration, continue IV fluids. Zofran available as needed for nausea. -Stool studies ordered including c diff and are pending. Follow. -Supportive care. Hypertensive urgency History of hypertension -Patient states that her BP is always high at home. Takes atentolo and hydralazine at home. -Continued on home medications, monitor bp trends. Still elevated with systolic in the 190's, clonidine as needed per parameters. -Continue to watch closely. DVT Prophylaxis: SCDs. Heparin.
[2018-06-18] MEDS ORDERED: Atenolol 50 MG Tablet PO SCH (09:00)
[2018-06-18] MEDS: ALPRAZolam 0.25 MG Tablet PO SCH ×2 (11:18→22:11)
[2018-06-18] MEDS: Senna/Docusate Sodium 8.6/50 MG Tablet PO SCH ×2 (11:18→22:11)
[2018-06-18] MEDS: Citalopram 20 MG Tablet PO SCH (11:18)
[2018-06-18] MEDS: Pantoprazole Sodium 20 MG DR Tablet PO SCH (11:19)
--- NOTE | 2018-06-18 22:08 | ECG ---
Date Performed: 06/18/2018 Time Performed: 03:45:11 PTAGE: 87 years EKG: Sinus rhythm LEFT VENTRICULAR HYPERTROPHY AND ST-T CHANGE POSSIBLE SEPTAL MYOCARDIAL INFARCTION ABNORMAL ECG PREVIOUS TRACING : 01/04/2018 23.20 Since the previous tracing, no significant change noted DOCTOR: Evon Mary Interpretating Date/Time 06/18/2018 22:07:49
[2018-06-18] MEDS: Gabapentin 300 MG Capsule PO SCH (22:10)
[2018-06-19 06:57] LABS: Baso % (Auto) 0.8 % (0.0-2.0); Eos # (Auto) 0.3 th/mm3 (0.0-0.4); Hematocrit 35.1 % (35.0-46.0); Hemoglobin 11.6 gm/dL (11.6-15.3); Lymph # (Auto) 2.4 th/mm3 (1.0-4.8); Mean Corpuscular HGB Conc 33.1 % (32.0-36.0); Mean Corpuscular Hemoglobin 29.8 pg (27.0-34.0); Mean Platelet Volume 7.8 fL (7.0-11.0); Mono # (Auto) 0.5 th/mm3 (0.0-0.9); Mono % (Auto) 9.5 % (0.0-8.0); Neut # (Auto) 2.1 th/mm3 (1.8-7.7); Neut % (Auto) 39.7 % (16.0-70.0); Platelet Count 220 th/mm3 (150-450); Red Cell Distribution Width 12.6 % (11.6-17.2); White Blood Count 5.3 th/mm3 (4.0-11.0)
[2018-06-19 07:04] LABS: Chloride 101 meq/L (98-107); Potassium 3.3 meq/L (3.5-5.1); Sodium 137 meq/L (136-145)
[2018-06-19 07:17] LABS: Alanine Aminotransferase 18 U/L (10-53); Alkaline Phosphatase 59 U/L (45-117); Anion Gap 8 meq/L (5-15); Aspartate Aminotransferase 20 U/L (15-37); Blood Urea Nitrogen 19 mg/dL (7-18); Carbon Dioxide 27.8 meq/L (21.0-32.0); Glomerular Filtration Rate 56 mL/min (>89); Glucose,Random 81 mg/dL (74-106); Total Protein 5.6 g/dL (6.4-8.2)
--- NOTE | 2018-06-19 07:42 | P.PNIM ---
Subjective Interval history: Follow up ab pain, n/v and uncontrolled hypertension. Patient seen and examined , lying in bed comfortably in [facility]. Slept very well. Denies any chest pain or shortness of breath. Ab pain resolved, denies any n/v. Tolerating PO intake well. Still with labile BP. Will monitor trends today. Hopefully DC home later this afternoon if BP more controlled. Physical Exam Vital signs: Vital Signs 06/18/18 07:51 06/18/18 09:30 06/18/18 12:00 Temperature 96.7 F L 96.2 F L Pulse Rate 58 L 58 L 51 L Respiratory Rate 16 20 20 Blood Pressure 186/86 H 196/86 H 104/59 L Pulse Oximetry 95 97 96 06/18/18 16:00 06/18/18 20:00 06/19/18 00:00 Temperature 97.6 F 94.5 F L 94.5 F L Pulse Rate 48 L 56 L 59 L Respiratory Rate 20 18 Blood Pressure 104/58 L 155/83 H 179/82 H Pulse Oximetry 94 L 97 92 L 06/19/18 00:31 06/19/18 04:00 Temperature 97.0 F L Pulse Rate 48 L 51 L Respiratory Rate 18 Blood Pressure 132/68 Pulse Oximetry 93 L Intake & Output 06/18/18 06/19/18 06/19/18 18:59 06:59 18:59 Intake Total 680 / 680 1050 / 1050 Output Total 400 / 400 500 / 500 Balance 280 / 280 550 / 550 Weight 45.7 kg Intake: IV 500 / 500 1000 / 1000 NS Inj 1,000 ML @ 75 mls/hr IV. 0 / 0 1000 / 1000 CONT .[id number] [facility] Rx#: [id number] NS Inj 500 ML @ Wide Open IV. 500 / 500 SIG BOLUS ONE Rx#:[id number] Oral 180 / 180 50 / 50 Output: Urine 400 / 400 500 / 500 Other: # Voids 1 Weight On Admission 45.9 kg Narrative: GENERAL: Well-developed, well-nourished patient in [facility]. SKIN: Warm and dry. No rash. HEAD: Normocephalic. Atraumatic. EYES: Pupils equal and round. No scleral icterus. No injection or drainage. ENT: No nasal bleeding or discharge. Mucous membranes pink and moist. NECK: Supple. Trachea midline. CARDIOVASCULAR: Regular rate and rhythm. S1, S2 noted. No murmur appreciated. RESPIRATORY: No accessory muscle use. Clear to auscultation. Breath sounds equal bilaterally. GASTROINTESTINAL: Abdomen soft, non-tender, nondistended. Normoactive bowel sounds x4. MUSCULOSKELETAL: No obvious deformities. Extremities without clubbing, cyanosis , or edema. NEUROLOGICAL: Awake and alert. No obvious cranial nerve deficits. Motor grossly within normal limits. 5/5 muscle strength in bilateral upper and lower extremities. Normal speech. Results - Labs CBC & Chem 7: 06/19/18 06:00 06/19/18 06:00 Laboratory Results - last 24 hr 06/19/18 06/19/18 06:00 06:00 CBC w Diff Auto diff final WBC 5.3 RBC 3.90 L Hgb 11.6 D Hct 35.1 MCV 90.0 MCH 29.8 MCHC 33.1 RDW 12.6 Plt Count 220 MPV 7.8 Neut % (Auto) 39.7 Lymph % (Auto) 44.0 Camp % (Auto) 9.5 H Eos % (Auto) 6.0 H Baso % (Auto) 0.8 Neut # (Auto) 2.1 Lymph # (Auto) 2.4 Camp # (Auto) 0.5 Eos # (Auto) 0.3 Baso # (Auto) 0.0 WBC Differential . Differential Comment . Sodium 137 Potassium 3.3 L Chloride 101 Carbon Dioxide 27.8 Anion Gap 8 BUN 19 H Creatinine 0.95 Estimated GFR 56 L Random Glucose 81 Calcium 9.0 D Total Bilirubin 0.6 AST 20 ALT 18 Alkaline Phosphatase 59 Total Protein 5.6 L D Albumin 3.0 L D Assessment and Plan - Assessment (1) Abdominal pain Code(s): R10.9 - Unspecified abdominal pain Status: Acute (2) Nausea and vomiting Code(s): R11.2 - Nausea with vomiting, unspecified Status: Acute (3) Hypertensive urgency Code(s): I16.0 - Hypertensive urgency Status: Acute - Plan This is a pleasant 87-year-old female patient with a known medical history of dementia and hypertension who presented to the ED with Abdominal pain, nausea and vomiting x 5 days. Resolved. Dehydration secondary to above. -Patient is status post skin cancer removal from her nose in the outpatient setting, was prescribed Bactrim and has taken a total of 3 doses. Since that time patient has had abdominal pain, nausea and vomiting and unable to eat or drink without emesis. -Patient denies any bloody or black emesis, denies any bloody or black stool. Patient does admit that her bowel movements have been loose as well at home. This has resolved since presentation. -It should be noted that patient's daughter is admitted for a possible viral GI infection. This may be related to patient's symptoms. -Abdominal/pelvis CT was performed in ED and reviewed showing fluid-filled bowel with no obstruction. Patient's pain has improved. -Tolerating PO intake well. DC IVF. Zofran available as needed for nausea. -Stool studies negative. -Supportive care. Hypertensive urgency History of hypertension -Patient states that her BP is always high at home. Takes atentolol and hydralazine at home. Patient has been having bradycardia with HR in the 40's- low 50's. Will hold. -Monitor bp trends. Still elevated with systolic occasionally in the 190's. Will DC IVF. Xanax seems to cause some of the hypertension, will continue Xanax. Clonidine as needed per parameters. DVT Prophylaxis: SCDs. Heparin. Discharge Planning: If BP more controlled later this afternoon will DC home.
[2018-06-19] MEDS: Citalopram 20 MG Tablet PO SCH (08:05)
[2018-06-19] MEDS: hydrALAZINE 50 MG Tablet PO SCH ×4 (08:05→21:56)
[2018-06-19] MEDS: ALPRAZolam 0.25 MG Tablet PO SCH ×2 (08:05→21:56)
[2018-06-19] MEDS: Pantoprazole Sodium 20 MG DR Tablet PO SCH (08:06)
[2018-06-19] MEDS: Senna/Docusate Sodium 8.6/50 MG Tablet PO SCH ×2 (08:06→21:57)
--- NOTE | 2018-06-19 09:03 | P.DCO ---
- Diagnosis (1) Hypertensive urgency Status: Acute (2) Abdominal pain Status: Acute (3) Nausea and vomiting Status: Acute - Home Health Nursing Order: Medical education, Signs/symptoms of disease process, Medication education-adverse effect, Nursing assessment with vital signs - Case Management Consult Yes - Certification I have seen patient Radha Albarran on 06/19/18. My clinical findings support the need for the requested home health care services because: Deconditioned with increased weakness I certify that my clinical findings support that this patient is homebound because: Impaired cognitive ability/safety
[2018-06-19] MEDS: Gabapentin 300 MG Capsule PO SCH (21:56)
[2018-06-20] MEDS: Senna/Docusate Sodium 8.6/50 MG Tablet PO SCH (09:35)
[2018-06-20] MEDS: Citalopram 20 MG Tablet PO SCH (09:35)
[2018-06-20] MEDS: Pantoprazole Sodium 20 MG DR Tablet PO SCH (09:35)
[2018-06-20] MEDS: ALPRAZolam 0.25 MG Tablet PO SCH (09:36)
[2018-06-20] MEDS: hydrALAZINE 50 MG Tablet PO SCH ×3 (09:36→17:06)
--- NOTE | 2018-06-20 14:47 | P.DS ---
Date of admission: 06/18/18 06:44 Primary care physician: Do Sandy Merchant Attending physician on discharge: Rimma Keating Anticipated date of discharge: 06/20/18 Brief History from admission: This is an 87-year-old female patient with a known medical history of hypertension who presented to the ED with complaints of worsening abdominal pain , nausea and vomiting as well as elevated blood pressure. Patient is a relatively poor historian due to underlying dementia, is at bedside assisting with obtaining medical history. Patient states that she underwent a surgery on Tuesday for skin cancer removal on her nose, and at that time was prescribed Bactrim, she states that she is taken 3 days worth of this Bactrim and since that time has had problems with her GI tract including abdominal pain , nausea and vomiting. She denies any recent fevers, chills, chest pain, headache, dysuria at home. She states she has been unable to eat or drink for the past few days secondary to her nausea. It should be noted that patient's daughter is also hospitalized with abdominal pain, nausea and vomiting for the same length of time which may be related to patient said symptoms. Patient follows closely with her primary care doctor, denies any new changes to her medicines. Patient lives at home with her and daughter, at baseline patient uses a walker and able to perform most ADLs per self. DS: Diagnosis - Discharge Diagnosis (1) Hypertensive urgency Status: Acute (2) Abdominal pain Status: Acute (3) Nausea and vomiting Status: Acute DS: Medications - Discharge Medications Prescriptions: clonidine [[id number]] 1 patch TRANSDERMAL Q7D #4 ea ondansetron [Zofran ODT] 4 mg PO Q6H PRN #10 tab PRN Reason: nausea and vomiting DS: Summary Hospital Course: 87-year-old female who originally presented to the hospital because of abdominal pain, nausea, vomiting. She was found to have accelerated hypertension and recommend admission to hospital for evaluation and management. Patient was admitted to the hospital with original home medications. However her home medication atenolol was held on 06/18/18. Patient apparently has pretty labile blood pressure with elevations mainly in the morning. Patient denies any headache, chest pain, shortness of breath or dyspnea. Patient responds quite well to clonidine. Patient was started on clonidine patch with improvement of her blood pressure and improve stability. Patient was admitted with IV fluids, diet has been advanced. She is tolerating diet without any nausea, vomiting and abdominal pain has completely resolved. Patient is doing quite well at this time. She is very eager to go home. Blood pressure has been stabilized. We will plan discharge home in stable condition. - Time Spent with Patient Total time spent providing and/or coordinating discharge services: Greater than 30 minutes - Quality: VTE Deep Vein Thrombosis/Pulmonary Embolism Present on Admission: No Exam Vital signs: Vital Signs 06/19/18 16:00 06/19/18 18:00 06/19/18 20:00 Temperature 97.1 F L Pulse Rate 56 L 63 Respiratory Rate 18 Blood Pressure 177/74 H 146/75 H Pulse Oximetry 93 L 06/20/18 00:00 06/20/18 04:00 06/20/18 08:00 Temperature 97.1 F L 97.5 F L Pulse Rate 58 L 60 62 Respiratory Rate 18 18 18 Blood Pressure 146/75 H 202/102 H 140/63 Pulse Oximetry 93 L 97 06/20/18 11:43 Temperature 96.3 F L Pulse Rate 59 L Respiratory Rate Blood Pressure 144/78 H Pulse Oximetry 96 Intake & Output 06/19/18 06/20/18 06/20/18 18:59 06:59 18:59 Intake Total 710 / 710 250 / 250 Output Total 300 / 300 150 / 150 Balance 410 / 410 100 / 100 Weight 48.2 kg Intake: IV 150 / 150 NS Inj 1,000 ML @ 75 mls/hr IV. 150 / 150 CONT .[id number] [facility] Rx#: [id number] Oral 560 / 560 250 / 250 Output: Urine 300 / 300 150 / 150 Other: Date of Last Bowel Movement 06/17/18 Narrative: GENERAL: Well-developed, well-nourished, in no acute distress. alert and orientated HEENT: Head is normocephalic without any lesions or masses noted. Facial features are symmetric. Eyes: Extraocular muscles are intact. Conjunctivae were clear. NECK: Supple without any masses. Trachea midline no deviation. No JVD, CARDIAC: Regular rhythm, regular rate. S1/S2 are heard. No murmurs gallops or rubs. LUNGS: Clear to auscultation bilaterally. No wheeze, rhonchi or rales. No use of accessory muscles on inspiration or expiration. ABDOMEN: Soft, nontender. Nondistended. Bowel sounds heard in all 4 quadrants. No organomegaly or masses. Negative rebound, negative guarding EXTREMITIES: No edema, pulses are equal bilaterally. No cyanosis or clubbing NEUROLOGY: Mood and affect appear appropriate. Cranial nerves II through XII grossly intact. Moving all extremities, speech is clear Results Procedures completed during hospitalization: none - Impressions ITS Impressions Abdomen/Pelvis CT 06/18/18 03:11 CONCLUSION: 1. Fluid-filled bowel loops without obstruction. 2. Bilateral renal low densities likely cysts. 3. Mild distention urinary bladder. Head CT 06/18/18 03:29 CONCLUSION: 1. Cerebral atrophy and chronic ischemic small vessel vasculopathy. . Discharge Plan - Discharge Disposition Patient Disposition: Discharge Home - Discharge Condition Condition: Stable - Discharge Details Anticipated Discharge Date: 06/19/18 - Physicians Team Primary Care Provider: Do Sandy Merchant Attending Provider: Rimma Keating Other Providers: Elijah Nava
== END 2018-06-20 18:41 | disposition home health service (06) ==
LOC: PHED 01:25 → PHEDA 01:25 → PH3 08:35
PROVIDERS: ADMIT Internal Medicine; ATTEND Internal Medicine